=== PATIENT | female | born 1945 | race Caucasian/White ===

== ENCOUNTER → 2020-01-02 14:19 | Outpatient (BNVA) | payer MEDICARE, SELFPAY | PROVIDERS: PCP Internal Medicine; Referring Provider Internal Medicine; Visit Provider Internal Medicine Cardiovascular Disease | DX: R07.9 Chest pain, unspecified (principal); R06.02 Shortness of breath; I35.2 Nonrheumatic aortic (valve) stenosis with insufficiency; I47.1 Supraventricular tachycardia; Z79.82 Long term (current) use of aspirin; Z79.899 Other long term (current) drug therapy | CPT/HCPCS: 99212 ==

== ENCOUNTER → 2020-02-12 07:56 | Outpatient (REF) | payer MEDICARE, SELFPAY ==
--- NOTE | 2020-02-12 | NM_ITS ---
Lexiscan Myocardial perfusion study Indication: Chest pain, shortness of breath, assess for coronary disease and ischemia Technique: The patient was brought in for a Lexiscan perfusion study on 02/12/2020 and was injected 0.4 mg of Lexiscan intravenously. Within a minute of this injection 25 mCi of sestamibi was given intravenously. Images were obtained using the SPECT gamma camera interlaced with the gating device. Images were obtained in supine position. Resting perfusion study was performed on 02/13/2020. Patient was administered 25 mCi of sestamibi intravenously at rest. Images were then obtained in supine position. Total DLP 78mGy-cm. Images were processed with the software and compared side to side in short axis, horizontal long axis and vertical long axis views. Findings: Raw acquisition was reviewed. The stress perfusion study showed no significant perfusion abnormality. Both uncorrected as well as CT attenuation corrected images were reviewed. The gated study shows normal LV systolic function with calculated LVEF of 72%. LV cavity is normal in size. The gated study shows normal wall thickening and contraction of segments. Resting study shows no significant perfusion abnormality. Gating at rest reveals normal wall motion with ejection fraction at > 75%. The findings are consistent with no definite reversible or fixed perfusion abnormality. NM/NM mesha perf SPECT rest & str Impression: 1. Myocardial perfusion imaging study shows normal myocardial perfusion. No evidence of any ischemia or infarction. 2. Gated LVEF is > 70% during stress and rest. 3. Transient ischemic dilatation not present. EKG component of the test reported separately.
--- NOTE | 2020-02-12 08:00 | CA_ITS ---
Acquisition Time: 2020-02-12 08:14:29 Total Exercise Time: 00:02:00 Test Indications: Chest Pain Medications: SEE H Protocol: LEXISCAN Max HR: 125 BPM 84% of Pred: 148 BPM Max BP: 126/074 mmHG Max Work Load: 1.0 METS Pharmacological stress test with Lexiscan injection, while sitting and kicking her legs, without anginal symptoms, without arrythmia, with normotensive response to injection, with nondiagnostic EKG for ischemia. In recovery she reported shortness of breath that was treated with Aminophylline 75mg IVP to reverse Lexiscan, with improvement in symptom. Nuclear images pending. Test reviewed with Dr Hernández. Referred By: Carlos Hernández Overread By: MELISSA GARCIA
== END ==
LOC: HO.CARD 07:56
PROVIDERS: PCP Internal Medicine; Visit Provider Internal Medicine Cardiovascular Disease
DX: R07.9 Chest pain, unspecified (principal)
CPT/HCPCS: 78452; 93017; A9500; J0280; J2785

== ENCOUNTER 2020-03-11 09:10 | Outpatient (REF) | payer MEDICARE, SELFPAY ==
--- NOTE | 2020-03-11 | US_ITS ---
EXAMINATION: US ABDOMEN COMPLETE CLINICAL INFORMATION: Epigastric abdominal pain. COMPARISON: CT abdomen and pelvis 11/24/2006. TECHNIQUE: Real-time imaging of the abdominal viscera. FINDINGS: PANCREAS: Normal. ABDOMINAL AORTA: The proximal, mid, and distal segments are normal in caliber. INFERIOR VENA CAVA: Visualized portions are normal. LIVER: The liver is normal in size. The liver contour is normal. There is diffuse increased echogenicity. There is an anechoic cyst left hepatic lobe measuring 0.8 x 0.6 x 0.8 cm. There is no intrahepatic biliary duct dilatation seen. GALLBLADDER: Surgically absent. COMMON BILE DUCT: Normal in caliber measuring 0.6 cm in diameter. RIGHT KIDNEY: There is an anechoic cyst measuring 1.0 x 0.8 x 0.9 cm in the midpole. No hydronephrosis or renal calculi. The kidney measures 10.0 cm in maximum dimension. LEFT KIDNEY: Normal. No hydronephrosis. No renal calculi or focal parenchymal lesions. The kidney measures 11.2 cm in maximum dimension. SPLEEN: Normal. The spleen measures 8.1 cm in maximum dimension. FREE FLUID: None. US/US abdomen complete IMPRESSION: Fatty infiltration of liver with a small left hepatic lobe cyst. Midpole right kidney cyst. The rest of the abdominal ultrasound is unremarkable.
== END 2020-03-11 09:11 | disposition home or self-care (01) ==
LOC: HO.US 09:10
PROVIDERS: PCP Internal Medicine; Visit Provider Internal Medicine
DX: R10.13 Epigastric pain (principal)
CPT/HCPCS: 76700

== ENCOUNTER 2020-03-20 10:41 | Day surgery (SDC) | payer MEDICARE, SELFPAY ==
[2020-03-14 14:26] VITALS: BMI 28.3
--- NOTE | 2020-03-15 14:30 | HO.ANESPROP2 ---
Documented by User: Mary Coulter 03/15/20 14:37 HPI - Anesthesia Eval Consult details Narrative: 75yo F for Upper Endoscopy Cardiac cleared at low risk [facility] Past Medical History Medical History (Updated 03/15/20 @ 14:36 by Mary Coulter) Aortic valve disease Chest pain in adult COPD (chronic obstructive pulmonary disease) Elevated cholesterol Fracture of leg GERD (gastroesophageal reflux disease) Hx of irritable bowel syndrome SVT (supraventricular tachycardia) Family History Family History Father No problems noted. Mother CVD (cardiovascular disease) Surgical History Surgical History (Updated 03/14/20 @ 14:33 by Orin Munguia) H/O colonoscopy History of esophagogastroduodenoscopy (EGD) Hx laparoscopic cholecystectomy Hx of cataract extraction Social History Social History Smoking Status: Former smoker Smoked in Last 30 Days: No Smoking Quit Date: 25 years ago Second Hand Smoke Exposure: No Use of substances other than those prescribed or required for medical reasons: No Advance Directives: No Advance Directives Information Provided: No Meds Allergies Allergy/AdvReac Type Severity Reaction Status Date / Time Sulfa (Sulfonamide Allergy Intermediate RASH Verified 03/20/20 11:23 Antibiotics) [SULFA(SULFONAMIDE ANTIBIOTICS)] levofloxacin [From LEVAQUIN] Allergy Unknown UNKNOWN Verified 03/20/20 11:23 azithromycin [From ZITHROMAX] AdvReac Intermediate DIARRHEA Verified 03/20/20 11:23 nebivolol [From BYSTOLIC] AdvReac Intermediate LEG EDEMA Verified 03/20/20 11:23 sertraline [SERTRALINE] AdvReac Intermediate NAUSEA Verified 03/20/20 11:23 Home Medications Medication Instructions Recorded Confirmed Type albuterol sulfate 90 mcg/actuation 1 inh INHALATION Q4-6H PRN 01/02/20 03/14/20 History aerosol inhaler cetirizine 10 mg tablet 10 mg PO DAILY 01/02/20 03/14/20 History citalopram 20 mg tablet 20 mg PO DAILY 01/02/20 03/14/20 History diltiazem HCl 120 mg capsule,24 120 mg PO DAILY 01/02/20 03/14/20 History hr,extended release fluticasone propionate 110 2 puff PO BID 01/02/20 03/14/20 History mcg/actuation HFA aerosol inhaler omeprazole 20 mg capsule,delayed 20 mg PO DAILY 01/02/20 03/14/20 History release pravastatin 40 mg tablet 40 mg PO DAILY 01/02/20 03/14/20 History umeclidinium 62.5 mcg-vilanterol 1 ea PO DAILY 01/02/20 03/14/20 History 25 mcg/actuation powdr for inhalation Exam Exam Date and Time: March 15, 2020 1430 Height,Weight and Vital Signs: Height 5 ft 5 in Weight 77.111 kg Narrative Narrative: EKG 12/2019 NSR@82, Low volt QRS Inf infarct, age undetermined ECHO 09/2018 Nml LV sys function with impaired relax, elevated filling pressures Mild LAE Mild and mild AR Mild MR Nml RV sys pressure No pericard effusion Stress 02/12/20 NM mesha perf SPECT rest & str Impression: 1. Myocardial perfusion imaging study shows normal myocardial perfusion. No evidence of any ischemia or infarction. 2. Gated LVEF is > 70% during stress and rest. 3. Transient ischemic dilatation not present. Nondiagnostic EKG for ischemia. US abdomen complete 03/11/20 IMPRESSION: Fatty infiltration of liver with a small left hepatic lobe cyst. Midpole right kidney cyst. The rest of the abdominal ultrasound is unremarkable. Assessment and Plan Assessment Anesthesia Assessment: Chart Reviewed Documented by User: Kisha Paulson 03/20/20 11:37 [facility] Past Medical History Medical History (Updated 03/15/20 @ 14:36 by Mary Coulter) Aortic valve disease Chest pain in adult COPD (chronic obstructive pulmonary disease) Elevated cholesterol Fracture of leg GERD (gastroesophageal reflux disease) Hx of irritable bowel syndrome SVT (supraventricular tachycardia) Family History Family History Father No problems noted. Mother CVD (cardiovascular disease) Surgical History Surgical History (Updated 03/14/20 @ 14:33 by Orin Munguia) H/O colonoscopy History of esophagogastroduodenoscopy (EGD) Hx laparoscopic cholecystectomy Hx of cataract extraction Social History Social History Smoking Status: Former smoker Smoked in Last 30 Days: No Smoking Quit Date: 25 years ago Second Hand Smoke Exposure: No Use of substances other than those prescribed or required for medical reasons: No Advance Directives: No Advance Directives Information Provided: No Meds Allergies Allergy/AdvReac Type Severity Reaction Status Date / Time Sulfa (Sulfonamide Allergy Intermediate RASH Verified 03/20/20 11:23 Antibiotics) [SULFA(SULFONAMIDE ANTIBIOTICS)] levofloxacin [From LEVAQUIN] Allergy Unknown UNKNOWN Verified 03/20/20 11:23 azithromycin [From ZITHROMAX] AdvReac Intermediate DIARRHEA Verified 03/20/20 11:23 nebivolol [From BYSTOLIC] AdvReac Intermediate LEG EDEMA Verified 03/20/20 11:23 sertraline [SERTRALINE] AdvReac Intermediate NAUSEA Verified 03/20/20 11:23 Home Medications Medication Instructions Recorded Confirmed Type albuterol sulfate 90 mcg/actuation 1 inh INHALATION Q4-6H PRN 01/02/20 03/14/20 History aerosol inhaler cetirizine 10 mg tablet 10 mg PO DAILY 01/02/20 03/14/20 History citalopram 20 mg tablet 20 mg PO DAILY 01/02/20 03/14/20 History diltiazem HCl 120 mg capsule,24 120 mg PO DAILY 01/02/20 03/14/20 History hr,extended release fluticasone propionate 110 2 puff PO BID 01/02/20 03/14/20 History mcg/actuation HFA aerosol inhaler omeprazole 20 mg capsule,delayed 20 mg PO DAILY 01/02/20 03/14/20 History release pravastatin 40 mg tablet 40 mg PO DAILY 01/02/20 03/14/20 History umeclidinium 62.5 mcg-vilanterol 1 ea PO DAILY 01/02/20 03/14/20 History 25 mcg/actuation powdr for inhalation Exam Airway Mallampati Class: II TM Dist: >3cm Neck ROM: Full Partial: Upper and Lower Heart: <del>RRR</del> Lungs: CTA BL Assessment and Plan Assessment Anesthesia Assessment: Anesthesia Plan Discussed and Chart Reviewed Final Anesthetic Review NPO: Yes ASA Class: III Final Preanesthetic Review: Meds/Ramirogs Chart Reviewed and Consent Obtained/Reviewed Patient Risk: Intermediate Procedure Risk: Intermediate Anesthetic Plan Anesthetic Plan: MAC: Disposition: Standard PACU
[2020-03-20 11:25] VITALS: BP 133/70; PULSE 73; RESP 18; TEMP 525; TEMP 977; O2SAT 97; BMI 27.9
[2020-03-20] MEDS: Lactated Ringers 1,000 ML 100 ML IVCONT (11:33)
[2020-03-20 12:06] VITALS: BP 88/48; PULSE 67; RESP 16; TEMP 36.1; O2SAT 98
--- NOTE | 2020-03-20 12:13 | PM.OP ---
Brief Operative Note Date of Service: 03/20/20 Pre-op diagnosis: Abdominal pain Post-op diagnosis: other (Mild antral gastritis, Gastric polyps, Hiatal hernia) Procedure: EGD with biopsy Surgeon: Kirit Hdez Anesthesia: MAC Estimated blood loss (mL): 3.0 Pathology: other (A. Gastric antrum B. Gastric polyps) Condition: stable Disposition: PACU
[2020-03-20 12:21] VITALS: BP 115/60; PULSE 70; RESP 16; TEMP 36.1; O2SAT 97
--- NOTE | 2020-03-20 13:06 | HO.POSTANES ---
Post Anesthesia Evaluation Post Anesthesia Evaluation Vital Signs: Vital Signs Temp Pulse Resp BP Pulse Ox 03/20/20 12:21 97.0 F 70 16 115/60 97 03/20/20 12:06 97.0 F 67 16 88/48 L 98 03/20/20 11:25 977.0 F H 73 18 133/70 97 Anesthesia: Monitored Mental Status: Awake Pain Control: Satisfactory Nausea/Vomiting: None Hydration: Adequate Anesthesia-Related Issues: No Anes. Related Issues
--- NOTE | 2020-03-20 13:09 | OP_ITS ---
SURGEON: Kirit Hdez MD INDICATIONS: The patient presents for evaluation of abdominal pain. Full consent has been obtained from her for this, including risks of bleeding and perforation. PREOPERATIVE DIAGNOSIS: Abdominal pain. POSTOPERATIVE DIAGNOSIS: PROCEDURE PERFORMED: Esophagogastroduodenoscopy with biopsies. ESTIMATED BLOOD LOSS: COMPLICATIONS: ANESTHESIA: Monitored anesthesia care. ASSISTANTS: SPECIMENS: POSTOPERATIVE DIAGNOSES: Abdominal pain, mild gastritis, gastric polyps, hiatal hernia. DESCRIPTION OF PROCEDURE: The patient was placed in the left lateral decubitus position. The Olympus video gastroscope was passed in the posterior oropharynx and upper esophagus under direct vision. The scope was passed slowly into the distal esophagus. The gastroesophageal junction appeared normal at 35 cm. There was no sign of any esophagitis. The scope was entered into the stomach. There was a small hiatal hernia. The scope was advanced to pylorus and duodenum cannulated to the descending portion. The duodenum including the bulb appeared normal without mass or ulceration. The scope was withdrawn back into the stomach. The gastric antrum had some areas of edema and erythema in the pre-pyloric antrum, but there was no evidence of any erosions nor ulceration. There was good peristalsis. Biopsies were obtained from the gastric antrum. The scope was retroflexed visualizing the proximal stomach carefully, which appeared normal, without mass or ulceration, other than some hyperplastic appearing gastric polyps. A few of these were biopsied. The scope was straightened and withdrawn back into the esophagus. The esophageal mucosa appeared normal. The scope was withdrawn from the patient. She tolerated the procedure well and was returned to the recovery area in stable condition. IMPRESSION: 1. Mild gastritis. 2. Gastric polyps. 3. Hiatal hernia. PLAN: The results of the biopsies will be checked. She has been advised to continue omeprazole for symptomatic relief of reflux. Her recent abdominal ultrasound was nonrevealing. She reports that her abdominal discomfort is quite minimal at this point. I advised her to continue omeprazole and observe things. Even if Helicobacter pylori is present in the gastric biopsies, I would not necessarily treat that at this time. If things are stable, I think she can see me on a p.r.n. basis and should have a repeat colonoscopy in 2022 for further screening. I did advise her to call me as needed. MD DESIREE Muñoz/MAGDALENA / [phone] LATRICIA
== END 2020-03-20 13:05 | disposition home or self-care (01) ==
PROVIDERS: PCP Internal Medicine; Visit Provider Internal Medicine
PROC: 0DJ08ZZ Inspection of Upper Intestinal Tract, Via Natural or Artificial Opening Endoscopic (ICD-10-PCS; CPT 43235; principal; 2020-03-20 12:00)
DX: R10.13 Epigastric pain (principal); K29.50 Unspecified chronic gastritis without bleeding; K31.7 Polyp of stomach and duodenum; K44.9 Diaphragmatic hernia without obstruction or gangrene; K21.9 Gastro-esophageal reflux disease without esophagitis; J44.9 Chronic obstructive pulmonary disease, unspecified; Z90.49 Acquired absence of other specified parts of digestive tract; Z79.899 Other long term (current) drug therapy
CPT/HCPCS: 43239; 88305; 88342

== ENCOUNTER 2020-05-03 10:56 | Outpatient (REF) | payer MEDICARE, SELFPAY ==
--- NOTE | ~2020-05-03 | MM_ITS ---
EXAMINATION: MM SCREENING DIGITAL BREAST TOMOSYNTHESIS, BILATERAL CLINICAL INFORMATION: Screening. Asymptomatic. The lifetime risk of breast cancer based on the Tyrer-Cuzick Model is 3%. COMPARISON: Mammography: 04/28/2019, 04/25/2018, 04/19/2017 TECHNIQUE: Digital breast tomosynthesis is performed in both the craniocaudal and mediolateral oblique views along with computer-aided detection (CAD). Synthesized 2D images are generated from the tomosynthesis. Additional exaggerated right CC view is provided. FINDINGS: The breasts are almost entirely fatty (ACR BI-RADS breast composition Category a). There are no significant masses, abnormal calcifications, or other abnormalities. The axilla and skin contours are unremarkable. MM/MM tomosynthesis screening BI IMPRESSION: No mammographic evidence of malignancy. ASSESSMENT: BI-RADS 1: Negative RECOMMENDATION: Routine annual mammography screening. This patient's information was entered into a reminder system with a target due date for their next mammogram.
== END 2020-05-03 10:57 | disposition home or self-care (01) ==
LOC: HO.MAMMO 10:56
PROVIDERS: Visit Provider Internal Medicine
DX: Z12.31 Encounter for screening mammogram for malignant neoplasm of breast (principal)
CPT/HCPCS: 77063; 77067

== ENCOUNTER 2020-05-24 09:58 | Outpatient (REF) | payer MEDICARE, SELFPAY ==
[2020-05-24 11:17] LABS: Alanine Aminotransferase 34 U/L (0-31); Albumin Level 4.3 g/dL (3.5-5.0); Alkaline Phosphatase 68 U/L (39-117); Anion Gap 13 (12-20); Aspartate Amino Transferase 30 U/L (5-31); Bilirubin Total 0.5 mg/dL (0.0-1.0); Blood Urea Nitrogen 22 mg/dL (9-16); Calcium 9.1 mg/dL (8.4-10.2); Carbon Dioxide 27 mmol/L (22-29); Chloride 105 mmol/L (96-108); Estimated Glomerular Filt Rate 53; Glucose Random 100 mg/dL (60-115); Potassium 4.8 mmol/L (3.3-5.1); Sodium 140 mmol/L (135-145); Total Protein 7.2 g/dL (6.5-8.0)
[2020-05-24 11:24] LABS: Thyroid Stimulating Hormone 2.98 uIU/mL (0.32-4.0)
== END 2020-05-24 09:59 | disposition home or self-care (01) ==
LOC: HO.LAB 09:58
PROVIDERS: PCP Internal Medicine; Visit Provider Internal Medicine
DX: Z00.00 Encounter for general adult medical examination without abnormal findings (principal); E03.9 Hypothyroidism, unspecified; E78.00 Pure hypercholesterolemia, unspecified; I10 Essential (primary) hypertension; K44.9 Diaphragmatic hernia without obstruction or gangrene
CPT/HCPCS: 36415; 80053; 84443

== ENCOUNTER 2020-08-16 10:03 | Emergency (ER) | payer MEDICARE, SELFPAY ==
--- NOTE | ~2020-08-16 | CT_ITS ---
EXAMINATION: CT ABDOMEN AND PELVIS WITH CONTRAST CLINICAL INFORMATION: Diarrhea and weakness. COMPARISON: Ultrasound abdomen 03/11/2020 TECHNIQUE: Multidetector volumetric images were obtained from the superior aspect of the liver through the pubic symphysis following administration 85 mL of Omnipaque 350 intravenous contrast. Sagittal and coronal reformatted images were obtained on the technologist's workstation. Oral contrast: No This CT examination was performed using dose optimization techniques as appropriate, variously including the following: *Automated exposure control *Adjustment of mA and/or kV according to patient size (this includes techniques or standardized protocols for targeted exams where dose is matched to indication/reason for exam; i.e. extremities or head) *Use of iterative reconstruction technique DLP: 509 mGy-cm FINDINGS: LUNG BASES: The heart size is normal. There is mild bibasilar atelectasis or scarring. 3 minutes subpleural nodule right lower lobe axial image 02/28. LIVER, GALLBLADDER, AND BILIARY TREE: The liver is normal in size, shape, and attenuation. No focal hepatic lesion or biliary ductal dilatation is present. The gallbladder has been surgically removed. PANCREAS: Unremarkable. SPLEEN: Unremarkable. ADRENAL GLANDS: Unremarkable. KIDNEYS AND URETERS: The kidneys are normal in size, shape, and attenuation. No hydronephrosis, hydroureter, or calculi seen. No perinephric stranding. There are small partially exophytic right renal cysts. Bilateral extrarenal kidney pelvises are noted. BLADDER: Unremarkable. GASTROINTESTINAL TRACT: Scattered stool and gas seen throughout the colon. There is nonspecific minimal mural thickening involving most of the colon. No pericolic fat stranding seen. The appendix is normal caliber. The small bowel loops are normal caliber. The stomach is nondistended and appears unremarkable. No free air or free fluid seen. ABDOMINAL WALL: A small umbilical hernia containing fat is noted. LYMPH NODES: Normal. VASCULAR: Unremarkable. PELVIC VISCERA: Unremarkable. OSSEOUS STRUCTURES: There is a calcified L1-L2 disc present. No lytic or sclerotic process seen. Mild spondylosis seen in mid lumbar spine. CT/CT abdomen pelvis w con IMPRESSION: Nonspecific mild mural thickening involving the majority of the colon but without any fat stranding could be secondary colitis. No diverticulitis seen. There is no free air or free fluid. Small right renal cyst with bilateral extra renal kidney pelvises.
--- NOTE | 2020-08-16 10:13 | ED_ITS ---
HPI - Nausea/Vomiting/Diarrhea General Chief complaint: Dizziness Stated complaint: diarrhea vomiting Time Seen by Provider: 08/16/20 10:12 Source: patient Mode of arrival: ambulatory Limitations: no limitations History of Present Illness MD elicited complaint: nausea, vomiting, diarrhea and other (dizziness feels weak all over) Pertinent past history: other (gastritis) Onset (ago): day(s) (started this Wednesday) Description of vomiting: food contents Associated nausea: Yes Associated abdominal pain: No Severity: moderate Exacerbating factors: eating and standing Relieving factors: rest and other (was Rx zofran and dicyclomine by GI without relief) Associated symptoms: loss of appetite, malaise, nausea/vomiting, weakness and other (feels very dizzy particularly with standing) Treatment prior to arrival: immodium Related Data Home Medications Medication Instructions Recorded Confirmed albuterol sulfate 90 mcg/actuation 1 inh INHALATION Q4-6H PRN 01/02/20 03/14/20 aerosol inhaler cetirizine 10 mg tablet 10 mg PO DAILY 01/02/20 03/14/20 citalopram 20 mg tablet 20 mg PO DAILY 01/02/20 03/14/20 diltiazem HCl 120 mg capsule,24 120 mg PO DAILY 01/02/20 03/14/20 hr,extended release fluticasone propionate 110 2 puff PO BID 01/02/20 03/14/20 mcg/actuation HFA aerosol inhaler omeprazole 20 mg capsule,delayed 20 mg PO DAILY 01/02/20 03/14/20 release pravastatin 40 mg tablet 40 mg PO DAILY 01/02/20 03/14/20 umeclidinium 62.5 mcg-vilanterol 1 ea PO DAILY 01/02/20 03/14/20 25 mcg/actuation powdr for inhalation Previous Rx's Medication Instructions Recorded metoclopramide HCl [Reglan] 10 mg PO Q6H PRN #20 tab 08/16/20 metronidazole [Flagyl] 500 mg PO Q12H 7 Days #14 tab 08/16/20 Allergies Allergy/AdvReac Type Severity Reaction Status Date / Time Sulfa (Sulfonamide Allergy Intermediate RASH Verified 08/16/20 10:21 Antibiotics) [SULFA(SULFONAMIDE ANTIBIOTICS)] levofloxacin [From LEVAQUIN] Allergy Unknown UNKNOWN Verified 08/16/20 10:21 azithromycin [From ZITHROMAX] AdvReac Intermediate DIARRHEA Verified 08/16/20 10:21 nebivolol [From BYSTOLIC] AdvReac Intermediate LEG EDEMA Verified 08/16/20 10:21 sertraline [SERTRALINE] AdvReac Intermediate NAUSEA Verified 08/16/20 10:21 Review of Systems Review of Systems: Constitutional : No Weight loss, No Fever, No Chills ENT/Mouth : No sore throat, No Rhinorrhea Eyes: No Swelling, No Redness Cardiovascular : No Chest Pain, No SOB, NoEdema Respiratory : No Cough, No Sputum, No Wheezing Gastrointestinal : Positive Nausea, Positive Vomiting, positive Diarrhea, no abdominal Pain, No Hematochezia, No Melena Genitourinary : No Dysuria, No Urinary Frequency, No Hematuria, No Urgency Musculoskeletal : No joint pain, No Myalgias, No Joint Swelling Skin : No Skin Lesions, No rash Neuro : No Weakness, No Numbness, pos Dizziness, No Headache Psych : No Anxiety/Panic, No Depression Heme/Lymph: No Bruising, No Lymphadenopathy Endocrine : No Polyuria, No Polydipsia All other systems reviewed and are negative. Gastrointestinal: Gastrointestinal: Reports nausea PMFSH Past Medical History Attestation statement: The following information was validated with the patient. Medical History Aortic valve disease Chest pain in adult COPD (chronic obstructive pulmonary disease) Elevated cholesterol Fracture of leg GERD (gastroesophageal reflux disease) Hx of irritable bowel syndrome SVT (supraventricular tachycardia) Surgical History H/O colonoscopy History of esophagogastroduodenoscopy (EGD) Hx laparoscopic cholecystectomy Hx of cataract extraction Family History Family History Father No problems noted. Mother CVD (cardiovascular disease) Social History Social History Alcohol intake: current Alcohol intake frequency: 0-2 drinks per day Patient Tobacco Use Status: Never used Tobacco Second Hand Smoke Exposure: No Use of substances other than those prescribed or required for medical reasons: No Advance Directives: Yes Advance Directives Information Provided: Yes Advance Directives on File: No Physical Exam Vital Signs: Vital Signs: Last Vital Signs Temp 97.3 F 08/16/20 10:24 Pulse 81 08/16/20 10:24 Resp 17 08/16/20 10:24 BP 143/50 H 08/16/20 10:24 Pulse Ox 98 08/16/20 10:24 Body Mass Index 25.0 Appearance: Alert. Oriented X3. No acute distress. Eyes: Pupils equal, round and reactive to light. ENT: Pharynx dry MM Neck: Normal inspection. Neck supple. CVS: Normal heart rate and rhythm. Pulses normal. Respiratory: No respiratory distress. Breath sounds normal. Abdomen: Soft and non-tender. Skin: Skin warm and dry. Normal skin color. Normal skin turgor. Extremities: No lower extremity edema. No calf ttp Neuro: Oriented X 3. No motor deficit. No sensory deficit. Course Course Course Narrative: attempting PO challenge at this time, I did walk her she denies dizziness, no diarrhea while in the ED in the last 3.5 hours, will continue to observe, she is tolerating some fluids and crackers the patient has been able to keep food down, she is feeling much better, at this time she wants to go home after discussion regarding admission, after CT scan results will start on flagyl and add reglan - plans to follow up with GI MDM - Nausea/Vomiting/Diarrhea MDM Narrative Medical decision making narrative: 75 yo female with hx of lung disease, aortic stenosis, HLD here with n/v/d since Wednesday unknown cause no recent antibiotics no food exposures, tried zofran and dicyclomine without relief, she did not vomit today and did not have diarrhea but she feels all over weak and very lightheaded suspect dehydration at this time reglan, IVF, CT scan for colitis, denies GIB symptoms, dispo per results and findings, doubt posterior stroke given related to position and started after n/v/d Lab Data Result diagrams: 08/16/20 10:35 08/16/20 10:35 Labs: Lab Results 08/16/20 08/16/20 08/16/20 Range/Units 10:35 10:35 10:35 WBC 3.7 L (4.8-10.8) X10*3/uL RBC 4.04 L (4.20-5.50) X10*6/uL Hgb 12.5 (12.0-16.0) g/dl Hct 37.0 (37-47) % MCV 91.6 (80-98) fL MCH 30.9 (27.0-33.0) pg MCHC 33.8 (31.0-35.0) g/dl RDW 12.1 (11.0-16.0) % Plt Count 208 (160-400) X10*3/uL MPV 8.4 L (9.4-12.3) fL Immature Gran % (Auto) 0.3 (0.0-0.4) % Neut % (Auto) 72.3 (45-73) % Lymph % (Auto) 17.2 L (20-40) % [place] % (Auto) 8.6 (2-11) % Eos % (Auto) 1.1 (0-4) % Baso % (Auto) 0.5 (0-2) % Lymph # (Auto) 0.6 L (1.2-4.9) X10*3/uL [place] # (Auto) 0.3 (0.1-1.2) X10*3/uL Eos # (Auto) 0.0 (0.0-0.4) X10*3/uL Baso # (Auto) 0.0 (0.0-0.2) X10*3/uL Abs Immat Gran (auto) 0.01 (0.00-0.03) X10*3/uL Absolute Neuts (auto) 2.7 (2.0-8.3) X10*3/uL Absolute Nucleated RBC 0.000 (0.0-0.012) X10*3/uL Nucleated RBC % (auto) 0.0 (0.0-0.2) /100WBC Sodium Cancelled 138 Potassium Cancelled 3.5 D Chloride Cancelled 104 Carbon Dioxide Cancelled 19 L Anion Gap Cancelled 19 BUN Cancelled 19 H Creatinine Cancelled 1.01 Estim Creat Clear Calc Cancelled 44.6 Estimated GFR Cancelled 54 Random Glucose Cancelled 123 H Calcium Cancelled 9.3 Magnesium 1.9 (1.6-2.6) mg/dL Total Bilirubin 1.0 (0.0-1.0) mg/dL Direct Bilirubin 0.5 (0.0-0.5) mg/dL AST 37 H (5-31) U/L ALT 33 H (0-31) U/L Alkaline Phosphatase 65 (39-117) U/L Troponin I High Sens (<3.5-17.0) ng/L Total Protein 7.3 (6.5-8.0) g/dL Albumin 4.3 (3.5-5.0) g/dL Lipase 19 (8-78) U/L 08/16/ Range/Units 10:35 WBC (4.8-10.8) X10*3/uL RBC (4.20-5.50) X10*6/uL Hgb (12.0-16.0) g/dl Hct (37-47) % MCV (80-98) fL MCH (27.0-33.0) pg MCHC (31.0-35.0) g/dl RDW (11.0-16.0) % Plt Count (160-400) X10*3/uL MPV (9.4-12.3) fL Immature Gran % (Auto) (0.0-0.4) % Neut % (Auto) (45-73) % Lymph % (Auto) (20-40) % [place] % (Auto) (2-11) % Eos % (Auto) (0-4) % Baso % (Auto) (0-2) % Lymph # (Auto) (1.2-4.9) X10*3/uL [place] # (Auto) (0.1-1.2) X10*3/uL Eos # (Auto) (0.0-0.4) X10*3/uL Baso # (Auto) (0.0-0.2) X10*3/uL Abs Immat Gran (auto) (0.00-0.03) X10*3/uL Absolute Neuts (auto) (2.0-8.3) X10*3/uL Absolute Nucleated RBC (0.0-0.012) X10*3/uL Nucleated RBC % (auto) (0.0-0.2) /100WBC Sodium Potassium Chloride Carbon Dioxide Anion Gap BUN Creatinine Estim Creat Clear Calc Estimated GFR Random Glucose Calcium Magnesium (1.6-2.6) mg/dL Total Bilirubin (0.0-1.0) mg/dL Direct Bilirubin (0.0-0.5) mg/dL AST (5-31) U/L ALT (0-31) U/L Alkaline Phosphatase (39-117) U/L Troponin I High Sens 3.8 (<3.5-17.0) ng/L Total Protein (6.5-8.0) g/dL Albumin (3.5-5.0) g/dL Lipase (8-78) U/L ECG Data Attestation: I personally reviewed and interpreted this ECG as follows: ECG interpretation date: 08/16/20 ECG interpretation time: 11:11 Interpretation: Rate: 82 Rhythm: NSR [place]: left Normal P waves. Normal [place]. Normal QRS complex. ST T wave : normal no ESTUARDO qTC: normal prior studies:no acute ischemia The study has been interpreted contemporaneously by me. . Discharge Plan Discharge Clinical Impression: Colitis Nausea & vomiting Qualifiers: Vomiting type: unspecified Vomiting Intractability: non-intractable Qualified Code(s): R11.2 - Nausea with vomiting, unspecified Patient Disposition: Home, Self-Care Instructions: Acute Nausea and Vomiting (ED), Colitis (ED) Additional Instructions: return to ED for any worsening symptoms or concerns if you feel unwell at any time please return to the emergency department Prescriptions: New metronidazole [Flagyl] 500 mg tablet 500 mg PO Q12H 7 Days Qty: 14 RF: 0 metoclopramide HCl [Reglan] 10 mg tablet 10 mg PO Q6H PRN (Reason: nausea and vomiting) Qty: 20 RF: 0 No Action Flovent HFA 110 mcg/actuation HFA aerosol inhaler 2 puff PO BID RF: 0 cetirizine 10 mg tablet 10 mg PO DAILY RF: 0 pravastatin 40 mg tablet 40 mg PO DAILY RF: 0 diltiazem HCl 120 mg capsule,extended release 24 hr 120 mg PO DAILY RF: 0 omeprazole 20 mg capsule,delayed release(DR/EC) 20 mg PO DAILY RF: 0 citalopram 20 mg tablet 20 mg PO DAILY RF: 0 albuterol sulfate 90 mcg/actuation HFA aerosol inhaler 1 inh inhalation Q4-6H PRN (Reason: Shortness Of Breath) RF: 0 Anoro Ellipta 62.5-25 mcg/actuation blister with device 1 ea PO DAILY RF: 0 Referrals: Kirit Hdez [Physician] - 2 days (Wednesday)
--- NOTE | 2020-08-16 10:20 | ECG_ITS ---
Test Reason : DIZZINESS Blood Pressure : / mmHG Vent. Rate : 082 BPM Atrial Rate : 082 BPM P-R Int : 148 ms QRS Dur : 070 ms QT Int : 412 ms P-R-T Axes : 061 -10 033 degrees QTc Int : 481 ms Normal sinus rhythm Possible Left atrial enlargement Borderline ECG When compared with ECG of 03-OCT-2018 22:30, No significant change was found Referred By: Lyly Martin Electronically Signed By:Marcell Toth
[2020-08-16 10:21] VITALS: BP 143/50; PULSE 81; RESP 17; TEMP 36.3; O2SAT 98; BMI 25.0
[2020-08-16 10:24] VITALS: BP 143/50; PULSE 81; RESP 17; TEMP 36.3; O2SAT 98
[2020-08-16] MEDS: 0.9 % Sodium Chloride 1,000 ML 999 ML IVCONT (10:38)
[2020-08-16] MEDS: diphenhydrAMINE HCL 50 MG/ML VIAL 25 MG IVPUSH (10:42)
[2020-08-16] MEDS: Metoclopramide HCl 10 MG/2 ML VIAL 5 MG IVPUSH (10:42)
[2020-08-16 10:44] LABS: MANUAL DIFF FLAG NO
[2020-08-16 10:47] LABS: Basophils Percent Auto 0.5 % (0-2); Eosinophils Percent Auto 1.1 % (0-4); Hemoglobin 12.5 g/dl (12.0-16.0); Imm Gran Abs Auto 0.01 X10*3/uL (0.00-0.03); Imm Gran Pct Auto 0.3 % (0.0-0.4); Lymphocytes Absolute Auto 0.6 X10*3/uL (1.2-4.9); Lymphocytes Percent Auto 17.2 % (20-40); Mean Corpuscular HGB Conc 33.8 g/dl (31.0-35.0); Mean Corpuscular Hemoglobin 30.9 pg (27.0-33.0); Mean Corpuscular Volume 91.6 fL (80-98); Mean Platelet Volume 8.4 fL (9.4-12.3); Monocytes Absolute Auto 0.3 X10*3/uL (0.1-1.2); Monocytes Percent Auto 8.6 % (2-11); Neutrophils Absolute Auto 2.7 X10*3/uL (2.0-8.3); Neutrophils Percent Auto 72.3 % (45-73); Platelet Count 208 X10*3/uL (160-400); Red Blood Count 4.04 X10*6/uL (4.20-5.50); Red Cell Distribution Width 12.1 % (11.0-16.0); White Blood Count 3.7 X10*3/uL (4.8-10.8)
[2020-08-16 11:13] LABS: Troponin-I High Sensitivity 3.8 ng/L (<3.5-17.0)
[2020-08-16 11:16] LABS: Alanine Aminotransferase 33 U/L (0-31); Albumin Level 4.3 g/dL (3.5-5.0); Alkaline Phosphatase 65 U/L (39-117); Anion Gap 19 (12-20); Aspartate Amino Transferase 37 U/L (5-31); Bilirubin Direct 0.5 mg/dL (0.0-0.5); Blood Urea Nitrogen 19 mg/dL (9-16); Calcium 9.3 mg/dL (8.4-10.2); Carbon Dioxide 19 mmol/L (22-29); Chloride 104 mmol/L (96-108); Creatinine Clr Calc Pharmacy 44.6; Estimated Glomerular Filt Rate 54; Glucose Random 123 mg/dL (60-115); Lipase 19 U/L (8-78); Magnesium 1.9 mg/dL (1.6-2.6); Potassium 3.5 mmol/L (3.3-5.1); Sodium 138 mmol/L (135-145); Total Protein 7.3 g/dL (6.5-8.0)
[2020-08-16] MEDS: iohexoL 350 MG/ML 100 ML INFUS..BTL IV (12:30)
[2020-08-16] MEDS: Famotidine/PF 20 MG/2 ML VIAL IVPUSH (13:43)
[2020-08-16 14:28] LABS: Glucose Urine UA NEG (NEG); Leukocyte Esterase Urine NEG (NEG); Nitrite Urine NEG (NEG); Specific Gravity - Urine <= 1.005 (1.005-1.025); Urine Blood NEG (NEG); Urine Ketones 40 MG/DL (NEG); Urine Protein NEG (NEG-TRACE)
[2020-08-16 14:29] LABS: Appearance Urine CLEAR; Color Urine YELLOW
[2020-08-16 14:38] VITALS: BP 116/48; PULSE 86
[2020-08-16 14:40] VITALS: BP 118/62; PULSE 91
[2020-08-16 14:41] VITALS: BP 127/61; PULSE 103
[2020-08-16 14:48] VITALS: BP 127/61; PULSE 103
--- NOTE | 2020-08-16 14:48 | PC.NURSE ---
pt states dizziness is better. She has been ambulatory to bathroom with steady gait. Pt ready for discharge
== END 2020-08-16 15:05 | disposition home or self-care (01) ==
PROVIDERS: Emergency Provider Emergency Medicine; PCP Internal Medicine
DX: K52.9 Noninfective gastroenteritis and colitis, unspecified (principal); R11.2 Nausea with vomiting, unspecified; J44.9 Chronic obstructive pulmonary disease, unspecified; Z79.899 Other long term (current) drug therapy
CPT/HCPCS: 36415; 74177; 80048; 80076; 81003; 83690; 83735; 84484; 85025; 93005; 96361; 96374; 96375; 99284; 99285; J1200; J2765; Q9967

== ENCOUNTER 2020-08-18 11:16 | Inpatient (IN) | payer MEDICARE, SELFPAY ==
--- NOTE | ~2020-08-18 | US_ITS ---
EXAMINATION: US VENOUS ULTRASOUND WITH DOPPLER LOWER EXTREMITY, RIGHT CLINICAL INFORMATION: Right leg swelling and pain COMPARISON: None TECHNIQUE: Ultrasound of the deep veins is performed from the hip to the calf with compression sonography and color and pulse Doppler assessment. Spectral analysis with color-flow imaging is performed. FINDINGS: There is normal venous compression and respiratory variation and augmented flow. The visualized common femoral vein, superficial femoral vein, profunda femoral vein, popliteal vein, and the trifurcation region shows no evidence of deep venous thrombosis. There is no popliteal fossa cyst. US/US venous duplex LE RT IMPRESSION: No DVT demonstrated in the right lower extremity.
--- NOTE | ~2020-08-18 | CT_ITS ---
EXAMINATION: CT HEAD WITHOUT CONTRAST CLINICAL INFORMATION: Dizziness, headaches. COMPARISON: None TECHNIQUE: Contiguous axial imaging was performed from the skull base to vertex without intravenous administration of contrast. Coronal and sagittal reformatted images were obtained. This CT examination was performed using dose optimization techniques as appropriate, variously including the following: *Automated exposure control *Adjustment of mA and/or kV according to patient size (this includes techniques or standardized protocols for targeted exams where dose is matched to indication/reason for exam; i.e. extremities or head) *Use of iterative reconstruction technique DLP: 579 mGy-cm FINDINGS: There is no evidence of acute intracranial hemorrhage or territorial infarction. No abnormal mass effect or midline shift is seen. Coughlin to white matter differentiation is well preserved. No extra-axial fluid collections are identified. The ventricles are normal in size. There is no abnormal attenuation within the brain parenchyma. The osseous structures and soft tissues are normal. The mastoid air cells are clear. Complete opacification of the right frontal sinus is seen. There is near complete opacification of the right ethmoid sinuses. This is seen to a lesser extent in the left ethmoid sinuses. The sphenoid sinuses are clear. Mild mucosal thickening is seen in the maxillary sinuses bilaterally. A retention cyst versus inflammatory polyp is seen off of the anterior wall of the right maxillary sinus measuring 0.7 cm (image 92, series 6). A polyp is seen along the medial wall of the posterior aspect of the right nasal cavity measuring 1.1 cm (image 86, series 6). CT/CT head/brain wo con IMPRESSION: 1. No acute intracranial pathology. 2. Paranasal sinus and nasal mucosal inflammatory changes as detailed above.
[2020-08-18 11:30] VITALS: BP 120/71; PULSE 100; RESP 16; TEMP 36.6; O2SAT 96; BMI 25.0
--- NOTE | 2020-08-18 11:35 | ECG_ITS ---
Test Reason : GENERAL MEDICINE Blood Pressure : / mmHG Vent. Rate : 091 BPM Atrial Rate : 091 BPM P-R Int : 148 ms QRS Dur : 074 ms QT Int : 380 ms P-R-T Axes : 069 000 054 degrees QTc Int : 467 ms Normal sinus rhythm Normal ECG When compared with ECG of 16-AUG-2020 11:02, No significant changes seen Referred By: Lyly Martin Electronically Signed By:Marcell Toth
--- NOTE | 2020-08-18 11:37 | ED.NAVMDI ---
HPI - Nausea/Vomiting/Diarrhea General Chief complaint: Nausea/Vomiting/Diarrhea Stated complaint: NAUSEA DEHYDRATION Time Seen by Provider: 08/18/20 11:35 Source: patient Mode of arrival: ambulatory Limitations: no limitations History of Present Illness MD elicited complaint: nausea, vomiting and other (weakness, dizziness) Pertinent past history: other (colitis GERD) Onset (ago): week(s) (1 week yesterday was a better day but this AM felt much worse) Description of vomiting: watery Associated nausea: Yes Associated abdominal pain: Yes Location of pain: epigastric Pain consistency: intermittent Severity: mild Quality: dull Exacerbating factors: eating Relieving factors: none Context: recent antibiotic use Associated symptoms: loss of appetite, malaise, nausea/vomiting and weakness Treatment prior to arrival: other (tried reglan today and took her flagyl this morning) Related Data Home Medications Medication Instructions Recorded Confirmed albuterol sulfate 90 mcg/actuation 1 inh INHALATION Q4-6H PRN 01/02/20 08/18/20 aerosol inhaler cetirizine 10 mg tablet 10 mg PO DAILY 01/02/20 03/14/20 citalopram 20 mg tablet 20 mg PO DAILY 01/02/20 03/14/20 diltiazem HCl 120 mg capsule,24 120 mg PO DAILY 01/02/20 08/18/20 hr,extended release fluticasone propionate 110 2 puff PO BID 01/02/20 08/18/20 mcg/actuation HFA aerosol inhaler omeprazole 20 mg capsule,delayed 20 mg PO DAILY 01/02/20 08/18/20 release pravastatin 40 mg tablet 40 mg PO DAILY 01/02/20 08/18/20 umeclidinium 62.5 mcg-vilanterol 1 ea PO DAILY 01/02/20 03/14/20 25 mcg/actuation powdr for inhalation Previous Rx's Medication Instructions Recorded metoclopramide HCl [Reglan] 10 mg PO Q6H PRN #20 tab 08/16/20 metronidazole [Flagyl] 500 mg PO Q12H 7 Days #14 tab 08/16/20 Allergies Allergy/AdvReac Type Severity Reaction Status Date / Time Sulfa (Sulfonamide Allergy Intermediate RASH Verified 08/16/20 10:21 Antibiotics) [SULFA(SULFONAMIDE ANTIBIOTICS)] levofloxacin [From LEVAQUIN] Allergy Unknown UNKNOWN Verified 08/16/20 10:21 azithromycin [From ZITHROMAX] AdvReac Intermediate DIARRHEA Verified 08/16/20 10:21 nebivolol [From BYSTOLIC] AdvReac Intermediate LEG EDEMA Verified 08/16/20 10:21 sertraline [SERTRALINE] AdvReac Intermediate NAUSEA Verified 08/16/20 10:21 Review of Systems Review of Systems: Constitutional : No Weight loss, No Fever, No Chills ENT/Mouth : No sore throat, No Rhinorrhea Eyes: No Swelling, No Redness Cardiovascular : No Chest Pain, No SOB, NoEdema Respiratory : No Cough, No Sputum, No Wheezing Gastrointestinal : Positive Nausea, Positive Vomiting, no Diarrhea, positive abdominal Pain, No Hematochezia, No Melena Genitourinary : No Dysuria, No Urinary Frequency, No Hematuria, No Urgency Musculoskeletal : No joint pain, No Myalgias, No Joint Swelling Skin : No Skin Lesions, No rash Neuro : pos Weakness, No Numbness, pos Dizziness, No Headache Psych : No Anxiety/Panic, No Depression Heme/Lymph: No Bruising, No Lymphadenopathy Endocrine : No Polyuria, No Polydipsia All other systems reviewed and are negative. Gastrointestinal: Gastrointestinal: Reports nausea PMFSH Past Medical History Attestation statement: The following information was validated with the patient. Medical History Aortic valve disease Chest pain in adult COPD (chronic obstructive pulmonary disease) Elevated cholesterol Fracture of leg GERD (gastroesophageal reflux disease) Hx of irritable bowel syndrome SVT (supraventricular tachycardia) Surgical History H/O colonoscopy History of esophagogastroduodenoscopy (EGD) Hx laparoscopic cholecystectomy Hx of cataract extraction Family History Family History Father No problems noted. Mother CVD (cardiovascular disease) Social History Social History Alcohol intake: current Alcohol intake frequency: 0-2 drinks per day Patient Tobacco Use Status: Never used Tobacco Second Hand Smoke Exposure: No Advance Directives: Yes Advance Directives Information Provided: Yes Advance Directives on File: No Physical Exam Vital Signs: Vital Signs: Last Vital Signs Temp 98 F 08/18/20 11:30 Pulse 90 08/18/20 11:49 Resp 18 08/18/20 11:49 BP 120/71 08/18/20 11:30 Pulse Ox 95 08/18/20 11:49 Body Mass Index 25.0 Appearance: Alert. Oriented X3. No acute distress. Eyes: Pupils equal, round and reactive to light. ENT: Pharynx dry MM Neck: Normal inspection. Neck supple. CVS: Normal heart rate and rhythm. Pulses normal. Respiratory: No respiratory distress. Breath sounds normal. Abdomen: Soft and non-tender. Skin: Skin warm and dry. pale skin color. Normal skin turgor. Extremities: No lower extremity edema. No calf ttp Neuro: Oriented X 3. No motor deficit. No sensory deficit. no drift Course Course Course Narrative: IV potassium ordered CT scan no stroke but diffuse sinus disease which could be causing her symptoms of nausea/dizziness, will dose with zosyn x 1, no concerns for sepsis MDM - Nausea/Vomiting/Diarrhea MDM Narrative Medical decision making narrative: 75 yo female seen on Wednesday in the ED for mild colitis was dizzy and nauseated at that time, offered admission but she declined went home with reglan/flagl - able to keep flagyl down today but she is very nauseated and cannot eat, yesterday felt better, diarrhea has stopped x 3 days but she cannot tolerate PO has headaches feels dizzy when standing very weak - at this time repeat labs, IVF x 2L, CT scan of head for dizziness though suspect this is dehydration, admit for intractable n/v Lab Data Result diagrams: 08/18/20 12:02 08/18/20 12:02 Labs: Lab Results 08/18/20 08/18/20 08/18/20 Range/Units 12:02 12:02 12:02 WBC 3.1 L (4.8-10.8) X10*3/uL RBC 3.77 L (4.20-5.50) X10*6/uL Hgb 11.7 L (12.0-16.0) g/dl Hct 34.4 L (37-47) % MCV 91.2 (80-98) fL MCH 31.0 (27.0-33.0) pg MCHC 34.0 (31.0-35.0) g/dl RDW 12.2 (11.0-16.0) % Plt Count 203 (160-400) X10*3/uL MPV 8.3 L (9.4-12.3) fL Immature Gran % (Auto) 0.0 (0.0-0.4) % Neut % (Auto) 56.9 (45-73) % Lymph % (Auto) 21.7 (20-40) % [place] % (Auto) 16.9 H (2-11) % Eos % (Auto) 3.5 (0-4) % Baso % (Auto) 1.0 (0-2) % Lymph # (Auto) 0.7 L (1.2-4.9) X10*3/uL [place] # (Auto) 0.5 (0.1-1.2) X10*3/uL Eos # (Auto) 0.1 (0.0-0.4) X10*3/uL Baso # (Auto) 0.0 (0.0-0.2) X10*3/uL Abs Immat Gran (auto) 0.00 (0.00-0.03) X10*3/uL Absolute Neuts (auto) 1.8 L (2.0-8.3) X10*3/uL Absolute Nucleated RBC 0.000 (0.0-0.012) X10*3/uL Nucleated RBC % (auto) 0.0 (0.0-0.2) /100WBC Sodium 141 (135-145) mmol/L Potassium 3.2 L (3.3-5.1) mmol/L Chloride 108 (96-108) mmol/L Carbon Dioxide 24 (22-29) mmol/L Anion Gap 12 (12-20) BUN 11 (9-16) mg/dL Creatinine 0.95 (0.5-1.4) mg/dL Estim Creat Clear Calc 47.4 Estimated GFR 58 Random Glucose 131 H (60-115) mg/dL Lactic Acid 1.1 (0.5-2.0) mmol/L Calcium 9.4 (8.4-10.2) mg/dL Magnesium 1.8 (1.6-2.6) mg/dL Total Bilirubin 0.4 (0.0-1.0) mg/dL Direct Bilirubin 0.3 (0.0-0.5) mg/dL AST 33 H (5-31) U/L ALT 28 (0-31) U/L Alkaline Phosphatase 57 (39-117) U/L Total Protein 6.8 (6.5-8.0) g/dL Albumin 4.2 (3.5-5.0) g/dL Lipase 25 (8-78) U/L COVID-19 (STEFF) (Negative) COVID-19 Clin Com 08/18/20 Range/Units 12:02 WBC (4.8-10.8) X10*3/uL RBC (4.20-5.50) X10*6/uL Hgb (12.0-16.0) g/dl Hct (37-47) % MCV (80-98) fL MCH (27.0-33.0) pg MCHC (31.0-35.0) g/dl RDW (11.0-16.0) % Plt Count (160-400) X10*3/uL MPV (9.4-12.3) fL Immature Gran % (Auto) (0.0-0.4) % Neut % (Auto) (45-73) % Lymph % (Auto) (20-40) % [place] % (Auto) (2-11) % Eos % (Auto) (0-4) % Baso % (Auto) (0-2) % Lymph # (Auto) (1.2-4.9) X10*3/uL [place] # (Auto) (0.1-1.2) X10*3/uL Eos # (Auto) (0.0-0.4) X10*3/uL Baso # (Auto) (0.0-0.2) X10*3/uL Abs Immat Gran (auto) (0.00-0.03) X10*3/uL Absolute Neuts (auto) (2.0-8.3) X10*3/uL Absolute Nucleated RBC (0.0-0.012) X10*3/uL Nucleated RBC % (auto) (0.0-0.2) /100WBC Sodium (135-145) mmol/L Potassium (3.3-5.1) mmol/L Chloride (96-108) mmol/L Carbon Dioxide (22-29) mmol/L Anion Gap (12-20) BUN (9-16) mg/dL Creatinine (0.5-1.4) mg/dL Estim Creat Clear Calc Estimated GFR Random Glucose (60-115) mg/dL Lactic Acid (0.5-2.0) mmol/L Calcium (8.4-10.2) mg/dL Magnesium (1.6-2.6) mg/dL Total Bilirubin (0.0-1.0) mg/dL Direct Bilirubin (0.0-0.5) mg/dL AST (5-31) U/L ALT (0-31) U/L Alkaline Phosphatase (39-117) U/L Total Protein (6.5-8.0) g/dL Albumin (3.5-5.0) g/dL Lipase (8-78) U/L COVID-19 (STEFF) Negative (Negative) COVID-19 Clin Com See Note ECG Data Attestation: I personally reviewed and interpreted this ECG as follows: ECG interpretation date: 08/18/20 ECG interpretation time: 11:51 Interpretation: Rate: 91 Rhythm: NSR [place]: normal Normal P waves. Normal [place]. Normal QRS complex. ST T wave : normal no ESTUARDO artifact noted qTC: normal prior studies: no acute ischemia The study has been interpreted contemporaneously by me. . Discharge Plan Discharge Clinical Impression: Vomiting, Weakness, Acute hypokalemia, Sinusitis Patient Disposition: Admitted As Inpatient
[2020-08-18 11:49] VITALS: PULSE 90; RESP 18; O2SAT 95
[2020-08-18] MEDS: 0.9 % Sodium Chloride 1,000 ML 999 ML IVCONT ×2 (12:04→12:54)
[2020-08-18] MEDS: Famotidine/PF 20 MG/2 ML VIAL IVPUSH (12:08)
[2020-08-18] MEDS: ondansetron HCL 4 MG/2 ML VIAL IVPUSH ×2 (12:08→15:44)
[2020-08-18 12:10] LABS: Eosinophils Absolute Auto 0.1 X10*3/uL (0.0-0.4); Eosinophils Percent Auto 3.5 % (0-4); Hematocrit 34.4 % (37-47); Hemoglobin 11.7 g/dl (12.0-16.0); Lymphocytes Absolute Auto 0.7 X10*3/uL (1.2-4.9); Lymphocytes Percent Auto 21.7 % (20-40); MANUAL DIFF FLAG NO; Mean Corpuscular Volume 91.2 fL (80-98); Mean Platelet Volume 8.3 fL (9.4-12.3); Monocytes Absolute Auto 0.5 X10*3/uL (0.1-1.2); Monocytes Percent Auto 16.9 % (2-11); Neutrophils Absolute Auto 1.8 X10*3/uL (2.0-8.3); Neutrophils Percent Auto 56.9 % (45-73); Platelet Count 203 X10*3/uL (160-400); Red Blood Count 3.77 X10*6/uL (4.20-5.50); Red Cell Distribution Width 12.2 % (11.0-16.0); White Blood Count 3.1 X10*3/uL (4.8-10.8)
[2020-08-18 12:26] LABS: Lactic Acid 1.1 mmol/L (0.5-2.0)
[2020-08-18 12:35] LABS: Alanine Aminotransferase 28 U/L (0-31); Albumin Level 4.2 g/dL (3.5-5.0); Alkaline Phosphatase 57 U/L (39-117); Anion Gap 12 (12-20); Aspartate Amino Transferase 33 U/L (5-31); Bilirubin Direct 0.3 mg/dL (0.0-0.5); Bilirubin Total 0.4 mg/dL (0.0-1.0); Blood Urea Nitrogen 11 mg/dL (9-16); Calcium 9.4 mg/dL (8.4-10.2); Carbon Dioxide 24 mmol/L (22-29); Chloride 108 mmol/L (96-108); Creatinine Clr Calc Pharmacy 47.4; Estimated Glomerular Filt Rate 58; Glucose Random 131 mg/dL (60-115); Lipase 25 U/L (8-78); Magnesium 1.8 mg/dL (1.6-2.6); Potassium 3.2 mmol/L (3.3-5.1); Sodium 141 mmol/L (135-145); Total Protein 6.8 g/dL (6.5-8.0)
[2020-08-18 12:36] LABS: COVID-19 Test Negative (Negative)
[2020-08-18] MEDS: Potassium Chloride/H20 10 MEQ/100 ML PIGGYBACK 100 MEQ IV ×2 (12:54→15:44)
[2020-08-18] MEDS: Potassium Chloride Packet 20 MEQ PACKET PO (12:54)
[2020-08-18] MEDS: Piperacillin Sodium/Tazobactam 3.375 GM in 0.9 % Sodium Chloride 50 ML IV (13:32)
[2020-08-18] MEDS: cefTRIAXone sodium 1 GM in 0.9 % Sodium Chloride 50 ML IV (15:44)
[2020-08-18] MEDS: Dextrose 5 % and 0.9 % NaCl 1,000 ML 80 ML IVCONT (15:44)
[2020-08-18] MEDS: Enoxaparin Sodium 40 MG/0.4 ML SYRINGE SUBCUT (16:07)
--- NOTE | 2020-08-18 16:35 | HP_ITS ---
DATE OF SERVICE: 08/18/2020 CHIEF COMPLAINT: Generalized weakness, headache, dizziness, epigastric discomfort, and nausea. HISTORY OF PRESENTING ILLNESS: This is a very pleasant 75-year-old female patient, who was recently seen at [facility] on August 16 due to symptoms of nausea, vomiting, diarrhea. A CAT scan of the abdomen at that time showed nonspecific mild mural thickening of the entire large bowel. Therefore, the patient was diagnosed to have colitis. She was recommended admission, however she declined. Therefore, she was discharged home on Reglan and Flagyl. According to patient, she has been compliant with both medications. Her diarrhea has resolved. Her lower abdominal pain is better, but she has been having nausea, epigastric discomfort, and also feels dizzy and has headache localized to the top of the head. She has a history of recurrent sinus infection and the emergency room workup showed mild hypokalemia. The patient was treated with IV fluids, antiemetics, and IV potassium replacement, and now being admitted for continued monitoring treatment for persistent symptoms. At present, the patient feels that her nausea is worse and she has been having poor appetite. Has eaten only crackers, a few bites of chicken soup and yogurt. She is complaining of profound headache and dizziness associated with generalized weakness. Due to these symptoms, a CAT scan of the head was obtained that showed no acute abnormality. Her CBC showed low white cell count of 3.1, stable hematocrit. Chem profile showed a potassium of 3.2, blood sugar of 131, AST of 33, albumin 4.2. Two sets of blood cultures have been obtained. The patient was noted to have mild tachycardia with a pulse of 103 on arrival to the emergency room. PAST MEDICAL HISTORY: Significant for, 1. History of aortic valve disease. 2. History of COPD. 3. History of hyperlipidemia. 4. History of GERD. 5. History of irritable bowel disease. 6. History of SVT. PAST SURGICAL HISTORY: 1. Status post upper endoscopy and colonoscopy. 2. Status post cholecystectomy. 3. Status post cataract extraction. FAMILY HISTORY: Father is , had no acute medical. Mother is and had cardiovascular disease. SOCIAL HISTORY: The patient lives alone by herself. She denies history of tobacco use disorder. She drinks 1 or 2 glasses of alcohol daily. She ambulates without assistive device. 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 Headache is localized to the top of the head with no radiation. CVS: She denies any chest pain or palpitation. RESPIRATORY: She denies any cough or sputum production. SKIN: She denies any itching or rash. Rest of all other systems are reviewed and are negative. PHYSICAL EXAMINATION: GENERAL: The patient is resting in bed. Does not appear to be in acute distress. VITALS: She is afebrile with a pulse of 103, respiratory rate of 16, room air finger oximetry 96%. HEENT: Pupils equal, round, and reactive to light and accommodation. Extraocular muscles intact. Anicteric sclerae. NECK: Supple. No increased JVD. LUNGS: Clear to auscultation bilaterally. No wheeze, no rhonchi. No respiratory distress. ABDOMEN: Soft. Epigastric tenderness to palpation. No palpable masses, rebound, rigidity, or guarding. EXTREMITIES: No edema. NEURO: Nonfocal. MUSCULOSKELETAL: No tenderness over maxillary sinus. IMAGING STUDY: CT scan of the head showed no acute intracranial pathology, which showed paranasal sinus and nasal mucosal inflammatory changes in the maxillary sinuses bilaterally. The sphenoid sinuses are clear. There is near complete opacification of the right ethmoid sinus and to a lesser extent in the left ethmoid sinus. LABORATORY DATA: As mentioned above. ASSESSMENT AND PLAN: 75-year-old female patient with multiple medical issues including history of chronic obstructive pulmonary disease, hyperlipidemia, and gastroesophageal reflux disease, who presented to [facility] with symptoms of nausea, vomiting, diarrhea. Initially on August 16 and diagnosed to have mild colitis, subsequently treated with by-mouth Flagyl and Reglan. Today, presented to [facility] due to symptoms of weakness, dizziness, nausea, and headache. The patient has been diagnosed to have mild hypokalemia, sinusitis, and colitis. 1. Generalized weakness/nausea with underlying diagnosis of colitis. The patient will be admitted to medical floor, will be treated with IV fluids, antiemetics. We will place on IV Flagyl and ceftriaxone, and place on low residue diet. It seems the patient failed outpatient antibiotic treatment. 2. Headache and dizziness, most likely related to sinus infection with history of recurrent sinus infections. The patient is on IV ceftriaxone that will cover colitis and sinusitis, will be placed on nasal saline spray. Recommend by-mouth fluids and decongestants. 3. Hypokalemia likely due to GI loss, will be aggressively replaced. We will follow potassium level. 4. History of supraventricular tachycardia. We will continue the patient on Cardizem. 5. History of gastroesophageal reflux disease, status post upper endoscopy in February of 2020 that showed mild antral gastritis, gastric polyp, and hiatal hernia. We will continue omeprazole and as-needed Maalox. The patient wishes to be a full code. The patient's son Jerome is healthcare proxy. Decision for admission and treatment plan discussed with both the patient and son at bedside. MD GARRY Spencer/MAGDALENA / [phone]
[2020-08-18 17:40] VITALS: BP 157/65; PULSE 101; RESP 20; O2SAT 98
[2020-08-18] MEDS: metroNIDAZOLE/NS 500 MG/100 ML PIGGYBACK 100 MG IV (17:50)
[2020-08-18 21:02] VITALS: RESP 16
[2020-08-19] VITALS (11 sets, daily range): BP systolic 140–190; BP diastolic 70–107; PULSE 75–95; RESP 15–18; TEMP 36.3–37.2; O2SAT 94–97; BMI 27.7
--- NOTE | 2020-08-19 00:51 | PC.NURSE ---
nurse to nurse report given to Karely RICHARD
[2020-08-19] MEDS: Omeprazole 20 MG CAPSULE.DR PO (05:28)
[2020-08-19] MEDS: Dextrose 5 % and 0.9 % NaCl 1,000 ML 80 ML IVCONT (05:28)
[2020-08-19 07:37] LABS: Anion Gap 11 (12-20); Blood Urea Nitrogen 5 mg/dL (9-16); Calcium 8.9 mg/dL (8.4-10.2); Carbon Dioxide 21 mmol/L (22-29); Chloride 113 mmol/L (96-108); Creatinine Clr Calc Pharmacy 55.9; Estimated Glomerular Filt Rate > 60; Glucose Random 112 mg/dL (60-115); Potassium 3.4 mmol/L (3.3-5.1); Sodium 142 mmol/L (135-145)
[2020-08-19] MEDS: Loratadine 10 MG TABLET PO (08:51)
[2020-08-19] MEDS: Escitalopram Oxalate 10 MG TABLET PO (08:51)
[2020-08-19] MEDS: dilTIAZem HCL CD 120 MG CAP.ER.DEG PO (08:52)
[2020-08-19] MEDS: Pravastatin Sodium 40 MG TABLET PO (08:52)
[2020-08-19] MEDS: Famotidine/PF 20 MG/2 ML VIAL IVPUSH (11:42)
--- NOTE | 2020-08-19 12:04 | MHC.CM.PN ---
CM MET WITH P[T WHO REPORTS SHE LIVES ALONE AND IS INDEPENDENT WITH ALL CARE AND MOBILITY. PT DENIES USING ANY DME OR SERVICES. PT REPORTS SHE HAS A HCP THAT NAMES HER SON, BARTOLO HER AGENT. PT CONFIRMS HER PCP IS BERTA RYDER. PT EXPRESSES CONCERN ABOUT BEING ON OBSERVATION STATUS, HOWEVER SHE IS IN PATIENT AT THIS TIME. IMM DELIVERED. CURRENT DC PLAN IS HOME WITH NO SERVICES. PT WILL ARRANGE TRANSPORT
[2020-08-19] MEDS: 0.9 % Sodium Chloride Flush 3 ML SYRINGE IVFLUSH ×3 (16:56→20:49)
[2020-08-19] MEDS: Enoxaparin Sodium 40 MG/0.4 ML SYRINGE SUBCUT (16:56)
[2020-08-19] MEDS: cefTRIAXone sodium 1 GM in 0.9 % Sodium Chloride 50 ML IV (16:59)
--- NOTE | 2020-08-19 17:24 | P.PNIM_ITS ---
Subjective Subjective Date of Service: 08/19/20 Interval History: complaining of nausea decreased by mouth intake and epigastric discomfort, also complaining of shakiness leg swelling, no fevers no chills no vomiting noted no diarrhea, no bowel movement in last 48hrs General no headache, no dizziness no fever chills. CVS no chest pain, no palpitation. Respiratory no cough, no sob. Gastrointestinal nausea, epigastric discomfort and constipation Physical Exam Vital Signs: Vital Signs: Last Vital Signs Temp 98.1 F 08/19/20 16:00 Pulse 75 08/19/20 16:00 Resp 18 08/19/20 16:00 BP 140/70 H 08/19/20 16:00 Pulse Ox 94 08/19/20 16:00 Body Mass Index 27.7 General patient resting comfortably in no acute distress. Neck supple no JVD. CVS regular rate rhythm, Respiratory lungs clear to auscultation, no respiratory distress, no wheeze, no rhonchi. Gastrointestinal abdomen soft, mild epigastric discomfort with palpation, bowel sounds audible, no guarding , no rigidity. Extremities no pitting edema. no redness, no warmth Neuro nonfocal ,moving all 4 extremity, speech clear. Skin no rash Objective Data Current Medications Generic Name Dose Route Start Last Admin Trade Name Freq PRN Reason Stop Dose Admin Acetaminophen 650 mg 08/18/20 15:00 Acetaminophen 325 Mg Tablet PO Q6H PRN Pain, Mild (Pain Scale 1-3) Al Hydroxide/Mg Hydroxide 30 ml 08/19/20 11:16 Magnesium Hydrox/Alum Hydrox 30 Ml Oral.Susp PO Q6H PRN acidity Albuterol Sulfate 2 puff 08/18/20 15:00 Albuterol Sulfate 90 Mcg 8 Gm Inhaler INHALE QID PRN Shortness Of Breath Albuterol Sulfate 2 puff 08/19/20 11:16 Albuterol Sulfate 90 Mcg 8 Gm Inhaler INHALE RQ4H PRN Shortness of Breath Albuterol/Ipratropium 3 ml 08/19/20 01:48 Albuterol/Iprat 2.5/0.5mg 3 Ml Ampul.Neb INHALE RQ4H PRN Shortness of Breath/Wheezing Diltiazem HCl 120 mg 08/19/20 09:00 08/19/20 08:52 Diltiazem Hcl Cd 120 Mg Cap.Er.Deg PO 120 mg DAILY BARRETT Administration Protocol Enoxaparin Sodium 40 mg 08/18/20 16:00 08/19/20 16:56 Enoxaparin Sodium 40 Mg/0.4 Ml Syringe SUBCUT 40 mg Q24H BARRETT Administration Escitalopram Oxalate 10 mg 08/19/20 09:00 08/19/20 08:51 Escitalopram Oxalate 10 Mg Tablet PO 10 mg DAILY BARRETT Administration Hydralazine HCl 5 mg 08/19/20 01:48 Hydralazine Hcl 20 Mg/Ml Vial IVPUSH Q6H PRN BP>180/90 Protocol Ceftriaxone Sodium 1 gm/ 50 mls @ 100 mls/hr 08/19/20 16:00 08/19/20 16:59 Sodium Chloride IV 100 mls/hr Q24H BARRETT Administration Loratadine 10 mg 08/19/20 09:00 08/19/20 08:51 Loratadine 10 Mg Tablet PO 10 mg DAILY BARRETT Administration Omeprazole 20 mg 08/19/20 06:30 08/19/20 05:28 Omeprazole 20 Mg Capsule. PO 20 mg DAILY@0630 BARRETT Administration Ondansetron HCl 4 mg 08/18/20 15:02 08/18/20 15:44 Ondansetron Hcl 4 Mg/2 Ml Vial IVPUSH 4 mg Q6H PRN Administration Nausea Pharmacy Consult 1 each 08/18/20 11:35 Consult Rx Perform Med Rec MISCELLANE ONCE PRN Consult order Pravastatin Sodium 40 mg 08/19/20 09:00 08/19/20 08:52 Pravastatin Sodium 40 Mg Tablet PO 40 mg DAILY BARRETT Administration Sodium Chloride 3 ml 08/18/20 16:00 08/19/20 16:56 0.9 % Sodium Chloride Flush 3 Ml Syringe IVFLUSH 3 ml QSHIFT [facility] Administration Labs CBC & Chem 7: 08/18/20 12:02 08/19/20 06:14 Labs: Laboratory Results - last 24 hr 08/19/20 06:14 Sodium 142 Potassium 3.4 Chloride 113 H Carbon Dioxide 21 L Anion Gap 11 L BUN 5 L D Creatinine 0.91 Estim Creat Clear Calc 55.9 Estimated GFR > 60 Random Glucose 112 Calcium 8.9 Microbiology Microbiology Results: Microbiology 08/18/20 12:02 Blood Culture - Preliminary Blood - Venous No growth after 24 hours. 08/18/20 12:02 Blood Culture - Preliminary Blood - Venous No growth after 24 hours. Quality Stroke Does the patient have a stroke diagnosis?: No VTE Prior VTE?: No VTE Risk Level:: Medical - moderate - high VTE Device Contraindication: N/A - Device Ordered VTE Drug Contraindication: N/A - Med Ordered Assessment and Plan (1) Acute hypokalemia: Status: Acute (2) Colitis: Status: Acute (3) Gastritis: Status: Acute (4) Leg pain, right: Status: Acute Assessment and Plan: 75-year-old female patient with multiple medical issues including history of chr onic obstructive pulmonary disease, hyperlipidemia, and gastroesophageal reflux disease, who presented to [facility] with symptoms of nausea, vomiting, diarrhea. Initially on August 16 diagnosed to have mild colitis, treated with by- mouth Flagyl and Reglan. Today, presented to [facility] due to symptoms of weakness, dizziness, nausea, and headache. The patient has been diagnosed to have mild hypokalemia, sinusitis, and colitis. 1. Generalized weakness/nausea with underlying diagnosis of colitis/ gastritis. complaining of persistent nausea and epigastric tenderness, it seems s ymptoms are ongoing for long time, status post upper endoscopy by Dr. Hdez in February for similar symptoms that showed mild antral gastritis, gastric polyp and hiatal hernia, pathology revealed mild chronic inactive inflammation no Helicobacter organisms, likely recurrent symptoms of gastritis will increase dose of Prilosec to twice daily, recommend to take SSRI at night, continue suppor tive care with antiemetics, frequent small meals, recommend to keep head of the bed elevated after each meal will continue IV ceftriaxone for mild colitis, will discontinue Flagyl due to intolerance 2. Headache and dizziness, most likely related to sinus infection with history of recurrent sinus infections, on IV ceftriaxone that will cover colitis and sinusitis, will be placed on nasal saline spray. 3. Hypokalemia likely due to GI loss, normalized with repletion 4. History of supraventricular tachycardia. will continue on Cardizem. 5. Right leg discomfort , noted to have mild puffiness with no pitting edema obtained duplex ultrasound right lower extremity that showed no DVT has normal examination with no redness swelling no further intervention recommended, likely puffiness due to lack of activity in last few days recommend ambulation 6. disposition will discharge patient home at a.m. recommend ambulation. 7. DVT prophylaxis with Lovenox > 35 minutes spent providing direct care and discussing results of imaging studies
--- NOTE | 2020-08-19 18:22 | PC.NURSE ---
Patient c/o R leg swelling/warmth, hospitalist called to bedside, US venous duplex ordered. Patient encouraged to amb, up ab fifi. No further issues.
[2020-08-20 03:22] VITALS: BP 145/65; PULSE 79; RESP 20; TEMP 37.1; O2SAT 95
[2020-08-20] MEDS: Omeprazole 20 MG CAPSULE.DR PO (05:51)
[2020-08-20 07:28] VITALS: BP 170/74; PULSE 70; RESP 18; TEMP 36.4; O2SAT 98
[2020-08-20] MEDS: Loratadine 10 MG TABLET PO (08:14)
[2020-08-20] MEDS: Escitalopram Oxalate 10 MG TABLET PO (08:14)
[2020-08-20] MEDS: Pravastatin Sodium 40 MG TABLET PO (08:14)
[2020-08-20 08:15] VITALS: BP 128/66; PULSE 72
[2020-08-20] MEDS: dilTIAZem HCL CD 120 MG CAP.ER.DEG PO (08:15)
--- NOTE | 2020-08-20 11:00 | MHC.CM.PN ---
Female 75 DX Colitis Hypo K+. She is discharged to home today. Noservices ordered or needed. Family is providing transportation.
--- NOTE | 2020-08-20 17:46 | P.DS_ITS ---
DS: Providers Provider Date of Service: 08/20/20 Date of admission: 08/18/20 15:00 Primary care physician: Rebeca Clarke MD DS: Diagnosis Discharge Diagnosis (1) Acute hypokalemia: Status: Acute (2) Colitis: Status: Acute (3) Gastritis: Status: Acute (4) Leg pain, right: Status: Acute DS: Medications Discharge Medications Home Medications: Home Medications Medication Instructions Recorded Confirmed cetirizine 10 mg tablet 10 mg PO DAILY 01/02/20 08/18/20 diltiazem HCl 120 mg capsule,24 120 mg PO DAILY 01/02/20 08/18/20 hr,extended release pravastatin 40 mg tablet 40 mg PO DAILY 01/02/20 08/18/20 albuterol sulfate 2 puff INHALATION QID PRN 08/18/20 08/18/20 citalopram 1 tab PO DAILY 08/18/20 08/18/20 Previous Rx's Medication Instructions Recorded cefuroxime axetil 500 mg PO Q12H 3 Days #6 tab 08/20/20 omeprazole 20 mg PO BID #0 cap 08/20/20 DS: Summary Hospital Course Hospital Course: History of presenting illness CHIEF COMPLAINT: Generalized weakness, headache, dizziness, epigastric discomfort, and nausea. HISTORY OF PRESENTING ILLNESS: This is a very pleasant 75-year-old female patient, who was recently seen at [facility] on August 16 due to symptoms of nausea, vomiting, diarrhea. A CAT scan of the abdomen at that time showed nonspecific mild mural thickening of the entire large bowel. Therefore, the patient was diagnosed to have colitis. She was recommended admission, however she declined. Therefore, she was discharged home on Reglan and Flagyl. According to patient, she has been compliant with both medications. Her diarrhea has resolved. Her lower abdominal pain is better, but she has been having nausea, epigastric discomfort, and also feels dizzy and has headache localized to the top of the head. She has a history of recurrent sinus infection and the emergency room workup showed mild hypokalemia. The patient was treated with IV fluids, antiemetics, and IV potassium replacement, and now being admitted for continued monitoring treatment for persistent symptoms. At present, the patient feels that her nausea is worse and she has been having poor appetite. Has eaten only crackers, a few bites of chicken soup and yogurt. She is complaining of profound headache and dizziness associated with generalized weakness. Due to these symptoms, a CAT scan of the head was obtained that showed no acute abnormality. Her CBC showed low white cell count of 3.1, stable hematocrit. Chem profile showed a potassium of 3.2, blood sugar of 131, AST of 33, albumin 4.2. Two sets of blood cultures have been obtained. The patient was noted to have mild tachycardia with a pulse of 103 on arrival to the emergency room. hospital course 75-year-old female patient with multiple medical issues including history of chronic obstructive pulmonary disease, hyperlipidemia, and gastroesophageal reflux disease, who presented to [facility] with symptoms of nausea, vomiting, diarrhea. Initially on August 16 diagnosed to have mild colitis, treated with by-mouth Flagyl and Reglan, but since symptoms persisted presented to [facility] due to symptoms of weakness, dizziness, nausea, and headache and diagnosed to have mild hypokalemia, sinusitis, and colitis. 1. Generalized weakness with colitis/ gastritis. patient treated with antiemetics, IV fluids and IV antibiotics, all her symptoms resolved, recommend to take SSRIs and statins at night, dose of Prilosec increased to twice a daily is being discharged home to finish a total 7 day course of Ceftin, Flagyl discontinued due to intolerance, recommend to have outpatient follow-up with Dr. Hdez history of ongoing epigastric pain status post upper endoscopy by Dr. Hdez in February for similar symptoms that showed mild antral gastritis, gastric polyp and hiatal hernia, pathology revealed mild chronic inactive inflammation, no Helicobacter organisms. 2. Headache and dizziness, most likely related to sinus infection with history of recurrent sinus infections, headache resolved recommend to finish course of Ceftin and use saline spray. 3. Hypokalemia likely due to GI loss, normalized with repletion. 4. History of supraventricular tachycardia. Recommend to continue Cardizem. 5. Right leg discomfort , was transient and resolved, duplex ultrasound right lower extremity showed no DVT has normal examination with no redness swelling no further intervention recommended, likely puffiness due to lack of activity in last few days. Time Spent with Patient Time attestation: Total time spent providing and/or coordinating discharge services: Discharge coordination time: Greater than 30 minutes Quality: Stroke Does the patient have a stroke diagnosis?: No Physical Exam Vital Signs: Vital Signs: Last Vital Signs Temp 97.5 F 08/20/20 07:28 Pulse 72 08/20/20 08:15 Resp 18 08/20/20 07:28 BP 128/66 08/20/20 08:15 Pulse Ox 98 08/20/20 07:28 Body Mass Index 27.7 General patient resting comfortably in no acute distress. Neck supple no JVD. CVS regular rate rhythm, Respiratory lungs clear to auscultation, no respiratory distress, no wheeze, no rhonchi. Gastrointestinal abdomen soft, mild epigastric discomfort with palpation, bowel sounds audible, no guarding , no rigidity. Extremities no pitting edema. no redness, no warmth Neuro nonfocal ,moving all 4 extremity, speech clear. Skin no rash DS: Data Data Completed and Pending Labs on day of discharge: Preliminary micro results at discharge 08/18/20 12:02 Blood Culture - Preliminary Blood - Venous No growth after 48 hours. 08/18/20 12:02 Blood Culture - Preliminary Blood - Venous No growth after 48 hours. Discharge Plan Discharge Patient Disposition: Home, Self-Care Discharge Diagnosis: acute colitis hypokalemia gastritis right leg pain Referrals: Rebeca Clarke MD [Primary Care Provider] - 1 Week Discharge Medications: New cefuroxime axetil 500 mg tablet 500 mg PO Q12H 3 Days Qty: 6 RF: 0 Continued citalopram 20 mg tablet 1 tab PO DAILY RF: 0 albuterol sulfate 90 mcg/actuation HFA aerosol inhaler 2 puff inhalation QID PRN (Reason: Shortness Of Breath) RF: 0 cetirizine 10 mg tablet 10 mg PO DAILY RF: 0 pravastatin 40 mg tablet 40 mg PO DAILY RF: 0 diltiazem HCl 120 mg capsule,extended release 24 hr 120 mg PO DAILY RF: 0 Changed omeprazole 20 mg capsule,delayed release(DR/EC) 20 mg PO BID Qty: 0 RF: 0 Discontinued metronidazole [Flagyl] 500 mg tablet 500 mg PO Q12H 7 Days Qty: 14 RF: 0 Discharge Orders: Discharge Order (Routine); Ordered 08/20/20 Ordered By: Rocio Neff Diet: low fat, low cholesterol Activity on Discharge: As tolerated Stand Alone Forms: Patient Portal Discharge page Care Plan Goals: epigastric discomfort and nausea, take Prilosec twice daily, take Paxil and pravastatin at night, take small frequent meals, take by mouth Ceftin for 3 more days only for sinusitis and colitis, use Claritin only in the season with allergies, otherwise use as needed only Health Concerns: gastritis/colitis /nausea / sinusitis Plan of Treatment: follow-up with primary care physician and Gastroenterology Assessment: as above Discharge Date/Time: 08/20/20 12:10
== END 2020-08-20 12:10 | disposition home or self-care (01) | DRG 392 ==
LOC: HO.ED 12:03 → HO.EDOVER 15:29 → HO.IMC 08-19 00:38
PROVIDERS: Admitting Provider Hospitalist; Emergency Provider Emergency Medicine; PCP Internal Medicine; Visit Provider Hospitalist
DX: K29.70 Gastritis, unspecified, without bleeding (principal); I47.1 Supraventricular tachycardia; E86.0 Dehydration; K52.9 Noninfective gastroenteritis and colitis, unspecified; J32.9 Chronic sinusitis, unspecified; M79.604 Pain in right leg; K21.9 Gastro-esophageal reflux disease without esophagitis; E87.6 Hypokalemia; Z20.822 Contact with and (suspected) exposure to COVID-19; Z88.2 Allergy status to sulfonamides; Z79.899 Other long term (current) drug therapy
CPT/HCPCS: 36415; 70450; 80048; 80076; 83605; 83690; 83735; 85025; 87040; 87635; 93005; 93971; 99219; 99284; J0696; J1650; J2405; J2543

== ENCOUNTER 2020-09-23 09:41 | Outpatient (REF) | payer MEDICARE, SELFPAY ==
[2020-09-23 10:15] LABS: MANUAL DIFF FLAG NO
[2020-09-23 10:24] LABS: Basophils Absolute Auto 0.1 X10*3/uL (0.0-0.2); Basophils Percent Auto 1.2 % (0-2); Eosinophils Absolute Auto 0.2 X10*3/uL (0.0-0.4); Eosinophils Percent Auto 5.6 % (0-4); Hematocrit 37.5 % (37-47); Hemoglobin 12.3 g/dl (12.0-16.0); Imm Gran Abs Auto 0.01 X10*3/uL (0.00-0.03); Imm Gran Pct Auto 0.2 % (0.0-0.4); Lymphocytes Percent Auto 23.7 % (20-40); Mean Corpuscular HGB Conc 32.8 g/dl (31.0-35.0); Mean Corpuscular Hemoglobin 30.4 pg (27.0-33.0); Mean Corpuscular Volume 92.6 fL (80-98); Mean Platelet Volume 8.9 fL (9.4-12.3); Monocytes Absolute Auto 0.7 X10*3/uL (0.1-1.2); Monocytes Percent Auto 15.6 % (2-11); Neutrophils Absolute Auto 2.3 X10*3/uL (2.0-8.3); Neutrophils Percent Auto 53.7 % (45-73); Platelet Count 204 X10*3/uL (160-400); Red Blood Count 4.05 X10*6/uL (4.20-5.50); Red Cell Distribution Width 11.9 % (11.0-16.0); White Blood Count 4.3 X10*3/uL (4.8-10.8)
[2020-09-23 11:07] LABS: Alanine Aminotransferase 16 U/L (0-31); Albumin Level 4.3 g/dL (3.5-5.0); Alkaline Phosphatase 63 U/L (39-117); Anion Gap 14 (12-20); Aspartate Amino Transferase 21 U/L (5-31); Blood Urea Nitrogen 13 mg/dL (9-16); Calcium 9.6 mg/dL (8.4-10.2); Carbon Dioxide 25 mmol/L (22-29); Chloride 109 mmol/L (96-108); Cholesterol 169 mg/dL; Estimated Glomerular Filt Rate 51; Glucose Random 95 mg/dL (60-115); HDL Cholesterol 51 mg/dL; LDL Cholesterol Calculated 97 mg/dl; Potassium 4.6 mmol/L (3.3-5.1); Sodium 143 mmol/L (135-145); Total Protein 7.1 g/dL (6.5-8.0); Triglycerides 109 mg/dL
== END 2020-09-23 09:42 | disposition home or self-care (01) ==
LOC: HO.LAB 09:41
PROVIDERS: PCP Internal Medicine; Visit Provider Internal Medicine
DX: E03.9 Hypothyroidism, unspecified (principal); I10 Essential (primary) hypertension; E78.00 Pure hypercholesterolemia, unspecified; K29.60 Other gastritis without bleeding
CPT/HCPCS: 36415; 80053; 80061; 85025

== ENCOUNTER → 2020-12-09 13:23 | Day surgery (SDC) | payer MEDICARE, SELFPAY ==
[2020-12-09 14:02] VITALS: BP 136/63; PULSE 84; RESP 16; TEMP 37.2; O2SAT 98; BMI 25.6
== END ==
PROVIDERS: PCP Internal Medicine; Visit Provider Ophthalmology
PROC: (CPT 67840; principal; 2020-12-09 14:30)
DX: H02.822 Cysts of right lower eyelid (principal); Z96.1 Presence of intraocular lens; I10 Essential (primary) hypertension; J43.8 Other emphysema; Z87.891 Personal history of nicotine dependence; Z79.51 Long term (current) use of inhaled steroids; Z79.899 Other long term (current) drug therapy; Z88.2 Allergy status to sulfonamides; Z88.1 Allergy status to other antibiotic agents; Z88.8 Allergy status to other drugs, medicaments and biological substances
CPT/HCPCS: 67840; 88304; 88305

== ENCOUNTER → 2020-12-27 09:16 | Outpatient (REF) | payer MEDICARE, SELFPAY ==
--- NOTE | 2020-12-27 09:20 | CA_ITS ---
Transthoracic Echocardiogram Patient (Last, First, Middle): Cleo Wright E Gender: Female Date of : 1945 Age: 75 Procedure Date: 12/27/2020 Procedure Type: Transthoracic Echocardiogram Location: OP Height: 165.1 cm Weight: 70.31 kg BSA: 1.78 m2 Heart Rate: bpm BP: 130 / 70 mmHg Engineer System Administrator: GERSON Referring MD: Carlos Hernández MD Shank Inspector: Carlos Hernández MD Symptoms: I35.9 - Nonrheumatic aortic valve disorder, unspecified Study Quality: Fair ECG Rhythm: Sinus Conclusions: - 1. Normal LV systolic function with impaired relaxation filling pattern with increased filling pressures 2. Borderline left atrial enlargement 3. Mild aortic regurgitation and [id number] aortic stenosis 4. Normal RV systolic pressure 5. No pericardial effusion Findings Left Ventricle Normal left ventricular size, thickness, and systolic function. The visually estimated ejection fraction is between 65-70%. Spectral Doppler is indicative of an impaired relaxation filling pattern. Elevated filling pressures. E/E prime ratio is >15, consistent with elevated filling pressures. There is mild septal asymmetric hypertrophy. Right Ventricle Normal right ventricular cavity size and systolic function. Atria The left atrium is likely dilated. There is no evidence of interatrial shunt. The right atrium is normal in size. Aortic Valve The aortic valve was not well visualized. There is mild to moderate aortic valve stenosis. The peak aortic gradient is 29 mmHg.The mean gradient is 16 mmHg. The aortic valve area is 1.47 cm2. There is mild aortic valve regurgitation. Mitral Valve There is mild anterior and posterior mitral leaflet thickening. There is mild mitral annular calcification. There is mild mitral valve regurgitation. There is no mitral valve stenosis. Pulmonic Valve The pulmonic valve was not well visualized. Tricuspid Valve Normal tricuspid valve structure. There is mild tricuspid valve regurgitation. The right ventricular systolic pressure is normal. The right ventricular systolic pressure is 25 mmHg. Normal right atrial pressure. There is no evidence of pulmonary hypertension. Great Vessels All visible segments of the aorta are normal in size. The pulmonary artery was not well visualized. Venous The inferior vena cava is normal in size and collapses greater than 50% with inspiration. Pericardium/Pleural There is no evidence of pericardial effusion. Prior Study Comparison Changes noted compared to prior study dated: 10/20/2018. Aortic stenosis has progressed to mildly Measurements 2D Linear Measurements IVSd: 1.30 0.6-0.9/0.6-1.0 cm LVIDd: 4.10 3.9-5.3/4.2-5.9 cm LVIDd Index: 2.30 2.4-3.2/2.2-3.1 cm/m2 LVIDs: 2.50 2.0-3.6 cm LVPWd: 1.01 0.7-1.1 cm Ao Root: 2.60 2.1-3.5 cm LA Diam: 4.20 2.7-3.8/3.0-4.0 cm LAIDs Index: 2.36 1.5-2.3 cm/m2 LV Mass: 202.23 67-162/88-224 g LV Mass Index: 113.61 43-95/49-115 g/m2 LVOT Diam: 2.00 3.0+(-)1.3 cm 2D Systolic Function EF 4C: 78.80 >55% Mitral Valve MV Pk E: 1.05 MV PK A: 1.08 MV Decel Time: 178.00 E/A: 1.00 E'Lateral: 5.33 E'Medial: 6.42 E/E' Med: 16.40 E/E' Lat: 19.70 PHT: 52.00 MVA PHT: 4.23 Decel [place]: 5.88 Aortic Valve AoV Pk Jony: 2.68 AoV Mn Jony: 1.92 AoV VTI: 0.60 AoV Pk Grad: 29.00 Aov Mn Grad: 16.00 YVAN Cont.VTI: 1.47 AI Pk Jony: 3.74 AI [place]: 2.60 LVOT LVOT Pk Jony: 1.23 LVOT Mn Jony: 0.82 LVOT VTI: 0.28 LVOT Pk Grad: 6.00 LVOT Mn Grad: 3.00 LVOT Diam: 2.00 LVOT Area: 3.14 Diastolic Function MV Pk E: 1.05 MV Pk A: 1.08 E/A: 1.00 E'Medial: 6.42 E/E' Med: 16.40 E' Laterial: 5.33 E/E' Lat: 19.70 Right Ventricle TAPSE (mm): 2.26 Tricuspid Valve TR Pk Jony: 2.36 TR Pk Grad: 22.00 RA Press: 3.00 RVSP: 25.00 Great Vessels Aorta Ao Root-2D: 2.60 2.0-3.7 cm Ao Asc: 2.70 2.1-3.4 cm Updated in Other Vendor System with Status of Final Carlos Hernández MD electronically signed on 12/27/2020 4:52:51 PM with status of Final
== END ==
LOC: HO.CARD 09:16
PROVIDERS: PCP Internal Medicine; Visit Provider Internal Medicine Cardiovascular Disease
DX: I35.9 Nonrheumatic aortic valve disorder, unspecified (principal); I47.1 Supraventricular tachycardia
CPT/HCPCS: 93306

== ENCOUNTER → 2021-01-07 12:48 | Outpatient (BNVA) | payer MEDICARE, SELFPAY | PROVIDERS: PCP Internal Medicine; Referring Provider Internal Medicine; Visit Provider Internal Medicine Cardiovascular Disease | DX: I35.9 Nonrheumatic aortic valve disorder, unspecified (principal); I47.1 Supraventricular tachycardia; E78.00 Pure hypercholesterolemia, unspecified; Z82.49 Family history of ischemic heart disease and other diseases of the circulatory system; Z88.2 Allergy status to sulfonamides; Z88.8 Allergy status to other drugs, medicaments and biological substances; Z79.899 Other long term (current) drug therapy | CPT/HCPCS: 99212 ==

== ENCOUNTER 2021-05-05 13:20 | Outpatient (REF) | payer MEDICARE, SELFPAY ==
--- NOTE | ~2021-05-05 | MM_ITS ---
EXAMINATION: MM SCREENING DIGITAL BREAST TOMOSYNTHESIS, BILATERAL CLINICAL INFORMATION: Screening. Asymptomatic. The lifetime risk of breast cancer based on the Tyrer-Cuzick Model is 2%. COMPARISON: Mammography: 05/03/2020, 04/28/2019, 04/25/2018 TECHNIQUE: Digital breast tomosynthesis is performed in both the craniocaudal and mediolateral oblique views along with computer-aided detection (CAD). Synthesized 2D images are generated from the tomosynthesis. FINDINGS: The breasts are almost entirely fatty (ACR BI-RADS breast composition Category a). There are no significant masses, abnormal calcifications, or other abnormalities. Background stromal and fibroglandular densities are stable. There are no significant changes from prior studies. MM/MM tomosynthesis screening BI IMPRESSION: No mammographic evidence of malignancy. ASSESSMENT: BI-RADS 1: Negative RECOMMENDATION: Routine annual mammography screening. This patient's information was entered into a reminder system with a target due date for their next mammogram.
== END 2021-05-05 13:21 | disposition home or self-care (01) ==
LOC: HO.MAMMO 13:20
PROVIDERS: PCP Internal Medicine; Visit Provider Internal Medicine
DX: Z12.31 Encounter for screening mammogram for malignant neoplasm of breast (principal)
CPT/HCPCS: 77063; 77067

== ENCOUNTER 2021-06-09 08:09 | Outpatient (REF) | payer MEDICARE, SELFPAY ==
[2021-06-09 09:10] LABS: Alanine Aminotransferase 18 U/L (0-31); Albumin Level 4.2 g/dL (3.5-5.0); Alkaline Phosphatase 54 U/L (39-117); Anion Gap 11 (12-20); Aspartate Amino Transferase 19 U/L (5-31); Bilirubin Total 0.7 mg/dL (0.0-1.0); Blood Urea Nitrogen 15 mg/dL (9-16); Calcium 9.8 mg/dL (8.4-10.2); Carbon Dioxide 27 mmol/L (22-29); Chloride 108 mmol/L (96-108); Estimated Glomerular Filt Rate 55; Glucose Random 91 mg/dL (60-115); Potassium 4.2 mmol/L (3.3-5.1); Sodium 142 mmol/L (135-145); Total Protein 7.1 g/dL (6.5-8.0)
== END 2021-06-09 08:10 | disposition home or self-care (01) ==
LOC: HO.LAB 08:09
PROVIDERS: PCP Internal Medicine; Visit Provider Internal Medicine
DX: Z00.00 Encounter for general adult medical examination without abnormal findings (principal); E78.00 Pure hypercholesterolemia, unspecified; F32.5 Major depressive disorder, single episode, in full remission
CPT/HCPCS: 36415; 80053

== ENCOUNTER 2021-07-15 15:22 | Emergency (ER) | payer MEDICARE, SELFPAY ==
--- NOTE | ~2021-07-15 | XR_ITS ---
EXAMINATION: XR CHEST CLINICAL INFORMATION: Shortness of breath COMPARISON: Previous chest x-ray most recent September 2018 TECHNIQUE: Frontal view of the chest was obtained. FINDINGS: No significant abnormality is noted involving the heart, lungs, mediastinum, bony thorax or soft tissues. XR/XR chest 1V IMPRESSION: Unremarkable examination.
[2021-07-15 15:32] VITALS: BP 139/78; BP 144/78; PULSE 100; PULSE 105; PULSE 106; RESP 22; RESP 24; TEMP 36.6; O2SAT 90; O2SAT 93; O2SAT 99; BMI 25.7
--- NOTE | 2021-07-15 15:37 | ECG_ITS ---
Test Reason : DYSPINA Blood Pressure : / mmHG Vent. Rate : 108 BPM Atrial Rate : 108 BPM P-R Int : 168 ms QRS Dur : 070 ms QT Int : 362 ms P-R-T Axes : 073 019 052 degrees QTc Int : 485 ms Sinus tachycardia Otherwise normal ECG When compared with ECG of 18-AUG-2020 11:47, T wave inversion no longer evident in Lateral leads Referred By: Carlota Curtis Electronically Signed By:Marcell Toth
[2021-07-15] MEDS: Albuterol Sulfate (0.083%) 2.5 MG/3 ML VIAL.NEB 10 MG INHALE (15:38)
--- NOTE | 2021-07-15 15:41 | ED_ITS ---
HPI - SOB/Dyspnea General Chief Complaint: Dyspnea Stated Complaint: 80% DIFF BREATHING,ON CPAP PER EMS Time Seen by Provider: 07/15/21 15:36 Source: patient and EMS Mode of arrival: EMS Limitations: no limitations History of Present Illness HPI Narrative: Patient comes emergency room complaining of shortness of breath. Patient was shopping, had a sudden onset of shortness of breath. Patient is known to have COPD, she does not use oxygen. Patient denies any recent illnesses. Patient denies chest pain. Patient called EMS. When EMS picked up the patient, her oxygen saturation was 80% on room air. Patient was started on CPAP with a DuoNeb. Solu-Medrol 125 mg was also given per EMS. Related Data Home Medications Medication Instructions Recorded Confirmed cetirizine 10 mg tablet 10 mg PO DAILY 01/02/20 01/07/21 pravastatin 40 mg tablet 40 mg PO DAILY 01/02/20 01/07/21 albuterol sulfate 90 mcg/actuation 2 puff INHALATION QID PRN 08/18/20 01/07/21 aerosol inhaler citalopram 20 mg tablet 1 tab PO DAILY 08/18/20 01/07/21 Previous Rx's Medication Instructions Recorded omeprazole 20 mg capsule,delayed 20 mg PO BID #0 cap 08/20/20 release diltiazem HCl 120 mg capsule,24 120 mg PO DAILY 90 Days #90 cap 11/11/20 hr,extended release doxycycline hyclate 100 mg capsule 100 mg PO DAILY #13 cap 07/15/21 prednisone 50 mg tablet 50 mg PO DAILY #4 tab 07/15/21 Allergies Allergy/AdvReac Type Severity Reaction Status Date / Time Sulfa (Sulfonamide Allergy Intermediate RASH Verified 08/16/20 10:21 Antibiotics) [SULFA(SULFONAMIDE ANTIBIOTICS)] levofloxacin [From LEVAQUIN] Allergy Unknown UNKNOWN Verified 08/16/20 10:21 azithromycin [From ZITHROMAX] AdvReac Intermediate DIARRHEA Verified 08/16/20 10:21 nebivolol [From BYSTOLIC] AdvReac Intermediate LEG EDEMA Verified 08/16/20 10:21 sertraline [SERTRALINE] AdvReac Intermediate NAUSEA Verified 08/16/20 10:21 Review of Systems Review of Systems: Constitutional : No Weight loss, No Fever, No Chills, No Night Sweats, No Fatigue, No Malaise ENT/Mouth : No Hearing loss, No Ear Pain, No Nasal Congestion, No Sinus Pain, No Hoarseness, No sore throat, No Rhinorrhea, No Swallowing Difficulty Eyes: No Eye Pain, No Swelling, No Redness, No Foreign Body, No Discharge, No Vision Changes Cardiovascular : Feeling of chest pressure without Chest Pain, No SOB, No Dyspnea on Exertion, No Orthopnea, No Edema, No Palpitations Respiratory : Denies cough, complaining of wheezing and significant shortness of breath Gastrointestinal : No Nausea, No Vomiting, No Diarrhea, No Constipation, No abdominal Pain, No Hematochezia, No Melena Genitourinary : no irregular bleeding, No Dysuria, No Urinary Frequency, No Hematuria, No Urinary Incontinence, No Urgency, No Flank Pain, No Urinary Flow Changes, No Hesitancy Musculoskeletal : No joint pain, No Myalgias, No Joint Swelling Skin : No Skin Lesions, No rash Neuro : No Weakness, No Numbness, No Paresthesias, No Loss of Consciousness, No Dizziness, No Headache Psych : No Anxiety/Panic, No Depression, No SI/HI/AH/VH, No Social Issues, Heme/Lymph: No Bruising, No Bleeding,No Lymphadenopathy Endocrine : No Polyuria, No Polydipsia, No Temperature Intolerance PMFSH Past Medical History Medical History Aortic valve disease COPD (chronic obstructive pulmonary disease) Elevated cholesterol Fracture of leg Gastritis GERD (gastroesophageal reflux disease) Hx of irritable bowel syndrome SVT (supraventricular tachycardia) Surgical History H/O colonoscopy History of esophagogastroduodenoscopy (EGD) Hx laparoscopic cholecystectomy Hx of cataract extraction Family History Family History Father No problems noted. Mother CVD (cardiovascular disease) Social History Social History Household Members: Unknown / Unable to assess Housing: Unknown / Unable to assess Do you presently have visiting nurse or other home services: No Unable to assess alcohol history related to: Refusing to respond Alcohol intake: current Alcohol intake frequency: 0-2 drinks per day Patient Tobacco Use Status: Never used Tobacco Second Hand Smoke Exposure: No Substance Use Type: Unknown Advance Directives: Yes Advance Directives on File: Yes Advance Directives Date on File: 08/19/20 service: No Current occupational status: retired Physical Exam Vital Signs: Vital Signs: Last Vital Signs Temp 97.9 F 07/15/21 20:00 Pulse 108 H 07/15/21 20:00 Resp 16 07/15/21 20:00 BP 133/55 L 07/15/21 20:00 Pulse Ox 98 07/15/21 20:00 BMI result Body Mass Index 25.7 Const: Other: Appearance: Alert. Oriented X3. No acute distress. Eyes: Pupils equal, round and reactive to light. ENT: Pharynx normal. Neck: Normal inspection. Neck supple. No lymph nodes noted. No crepitus CVS: Tachycardic, regular rhythm, Pulses normal. Normal S1 and S2 Respiratory: Tachypneic, respiratory rate in the 30s, bilateral diffuse wheezing, poor air movement Abdomen: Soft and nontender. No rigidity. No distention. Skin: Skin warm and dry. Normal skin color. Normal skin turgor. Extremities: No lower extremity edema. No Lacerations. No Rash Neuro: Oriented X 3. No motor deficit. No sensory deficit. Moving all extremities. No slurred speech. CN 2 through 12 grossly intact Psych: calm, cooperative, normal affect Course Course Course Narrative: Patient already received 125 mg of Solu-Medrol, a DuoNeb, no she is getting an hour long breathing treatment. Patient was taking of CPAP, oxygen saturation 99%. Although labs and imaging pending. Patient's white blood cell count is normal, lactic acid elevated, likely secondary to multiple nebulization treatments. Patient has no fever, normal blood pressure, sepsis is not suspected. Chest x-ray is unremarkable. Patient walked around the emergency room, her oxygen saturation remained above 94% on room air. Patient states that she does not feel any shortness of breath, no chest pressure, patient feels back to b aseline. Patient's lactic acid is trending down. Patient is receiving fluids. Patient feels well. As mentioned above, sepsis is not suspected. Patient was given p.o. doxycycline and prednisone for home. Patient states that she has plenty of albuterol at home Patient has been stable, breathing comfortably, saturating above 95% on room air for at least 3 hours, including with exertion. MDM - SOB/Dyspnea Lab Data Result diagrams: 07/15/21 17:16 07/15/21 17:16 Labs: Lab Results 07/15/21 07/15/21 07/15/21 Range/Units 17:16 17:16 17:16 WBC 7.5 (4.8-10.8) X10*3/uL RBC 3.83 L (4.20-5.50) X10*6/uL Hgb 11.9 L (12.0-16.0) g/dl Hct 36.1 L (37.0-47.0) % MCV 94.3 (80.0-98.0) fL MCH 31.1 (27.0-33.0) pg MCHC 33.0 (31.0-35.0) g/dl RDW 12.2 (11.0-16.0) % Plt Count 196 (160-400) X10*3/uL MPV 8.8 L (9.4-12.3) fL Immature Gran % (Auto) 0.3 (0.0-0.4) % Neut % (Auto) 86.5 H (45-73) % Lymph % (Auto) 6.8 L (20-40) % [place] % (Auto) 4.3 (2-11) % Eos % (Auto) 1.3 (0-4) % Baso % (Auto) 0.8 (0-2) % Lymph # (Auto) 0.5 L (1.2-4.9) X10*3/uL [place] # (Auto) 0.3 (0.1-1.2) X10*3/uL Eos # (Auto) 0.1 (0.0-0.4) X10*3/uL Baso # (Auto) 0.1 (0.0-0.2) X10*3/uL Abs Immat Gran (auto) 0.02 (0.00-0.03) X10*3/uL Absolute Neuts (auto) 6.5 (2.0-8.3) x10*3/uL Absolute Nucleated RBC 0.000 (0.0-0.012) X10*3/uL Nucleated RBC % (auto) 0.0 (0.0-0.2) /100WBC PT (9.9-13.0) SEC INR (0.9-1.1) VBG pH (7.32-7.43) VBG pCO2 mmHg VBG pO2 mmHg VBG HCO3 (22-26) mmol/L VBG O2 Saturation % VBG Base Excess mmol/L Sodium 141 (135-145) mmol/L Potassium 3.7 (3.3-5.1) mmol/L Chloride 108 (96-108) mmol/L Carbon Dioxide 22 (22-29) mmol/L Anion Gap 15 (12-20) BUN 18 H (9-16) mg/dL Creatinine 1.13 (0.5-1.4) mg/dL Estim Creat Clear Calc 44.4 Estimated GFR 47 Random Glucose 150 H (60-115) mg/dL Lactic Acid (0.5-2.0) mmol/L Lactic Acid F/U @ 2Hr (0.5-2.0) mmol/L Calcium 9.1 D (8.4-10.2) mg/dL Total Bilirubin 0.3 (0.0-1.0) mg/dL Direct Bilirubin 0.2 (0.0-0.5) mg/dL AST 17 (5-31) U/L ALT 15 (0-31) U/L Alkaline Phosphatase 56 (39-117) U/L Troponin I High Sens (<3.5-17.0) ng/L B-Natriuretic Peptide (<100) pg/mL Total Protein 6.9 (6.5-8.0) g/dL Albumin 4.0 (3.5-5.0) g/dL COVID-19 (STEFF) Negative (Negative) COVID-19 Clin Com See Note Influenza Type A (PETE) (Negative) Influenza Type B (PETE) (Negative) Influenza A & B Note 07/15/21 07/15/21 07/15/21 Range/Units 17:16 17:16 17:17 WBC (4.8-10.8) X10*3/uL RBC (4.20-5.50) X10*6/uL Hgb (12.0-16.0) g/dl Hct (37.0-47.0) % MCV (80.0-98.0) fL MCH (27.0-33.0) pg MCHC (31.0-35.0) g/dl RDW (11.0-16.0) % Plt Count (160-400) X10*3/uL MPV (9.4-12.3) fL Immature Gran % (Auto) (0.0-0.4) % Neut % (Auto) (45-73) % Lymph % (Auto) (20-40) % [place] % (Auto) (2-11) % Eos % (Auto) (0-4) % Baso % (Auto) (0-2) % Lymph # (Auto) (1.2-4.9) X10*3/uL [place] # (Auto) (0.1-1.2) X10*3/uL Eos # (Auto) (0.0-0.4) X10*3/uL Baso # (Auto) (0.0-0.2) X10*3/uL Abs Immat Gran (auto) (0.00-0.03) X10*3/uL Absolute Neuts (auto) (2.0-8.3) x10*3/uL Absolute Nucleated RBC (0.0-0.012) X10*3/uL Nucleated RBC % (auto) (0.0-0.2) /100WBC PT 12.9 (9.9-13.0) SEC INR 1.1 (0.9-1.1) VBG pH (7.32-7.43) VBG pCO2 mmHg VBG pO2 mmHg VBG HCO3 (22-26) mmol/L VBG O2 Saturation % VBG Base Excess mmol/L Sodium (135-145) mmol/L Potassium (3.3-5.1) mmol/L Chloride (96-108) mmol/L Carbon Dioxide (22-29) mmol/L Anion Gap (12-20) BUN (9-16) mg/dL Creatinine (0.5-1.4) mg/dL Estim Creat Clear Calc Estimated GFR Random Glucose (60-115) mg/dL Lactic Acid (0.5-2.0) mmol/L Lactic Acid F/U @ 2Hr (0.5-2.0) mmol/L Calcium (8.4-10.2) mg/dL Total Bilirubin (0.0-1.0) mg/dL Direct Bilirubin (0.0-0.5) mg/dL AST (5-31) U/L ALT (0-31) U/L Alkaline Phosphatase (39-117) U/L Troponin I High Sens 18.6 H (<3.5-17.0) ng/L B-Natriuretic Peptide 83 (<100) pg/mL Total Protein (6.5-8.0) g/dL Albumin (3.5-5.0) g/dL COVID-19 (STEFF) (Negative) COVID-19 Clin Com Influenza Type A (PETE) Negative (Negative) Influenza Type B (PETE) Negative (Negative) Influenza A & B Note See Note 07/15/21 07/15/21 07/15/21 Range/Units 17:17 17:19 20:07 WBC (4.8-10.8) X10*3/uL RBC (4.20-5.50) X10*6/uL Hgb (12.0-16.0) g/dl Hct (37.0-47.0) % MCV (80.0-98.0) fL MCH (27.0-33.0) pg MCHC (31.0-35.0) g/dl RDW (11.0-16.0) % Plt Count (160-400) X10*3/uL MPV (9.4-12.3) fL Immature Gran % (Auto) (0.0-0.4) % Neut % (Auto) (45-73) % Lymph % (Auto) (20-40) % [place] % (Auto) (2-11) % Eos % (Auto) (0-4) % Baso % (Auto) (0-2) % Lymph # (Auto) (1.2-4.9) X10*3/uL [place] # (Auto) (0.1-1.2) X10*3/uL Eos # (Auto) (0.0-0.4) X10*3/uL Baso # (Auto) (0.0-0.2) X10*3/uL Abs Immat Gran (auto) (0.00-0.03) X10*3/uL Absolute Neuts (auto) (2.0-8.3) x10*3/uL Absolute Nucleated RBC (0.0-0.012) X10*3/uL Nucleated RBC % (auto) (0.0-0.2) /100WBC PT (9.9-13.0) SEC INR (0.9-1.1) VBG pH 7.51 H (7.32-7.43) VBG pCO2 22 mmHg VBG pO2 148 mmHg VBG HCO3 18 L (22-26) mmol/L VBG O2 Saturation 99.0 % VBG Base Excess -2.9 mmol/L Sodium (135-145) mmol/L Potassium (3.3-5.1) mmol/L Chloride (96-108) mmol/L Carbon Dioxide (22-29) mmol/L Anion Gap (12-20) BUN (9-16) mg/dL Creatinine (0.5-1.4) mg/dL Estim Creat Clear Calc Estimated GFR Random Glucose (60-115) mg/dL Lactic Acid 3.3 H* (0.5-2.0) mmol/L Lactic Acid F/U @ 2Hr 2.7 H* (0.5-2.0) mmol/L Calcium (8.4-10.2) mg/dL Total Bilirubin (0.0-1.0) mg/dL Direct Bilirubin (0.0-0.5) mg/dL AST (5-31) U/L ALT (0-31) U/L Alkaline Phosphatase (39-117) U/L Troponin I High Sens (<3.5-17.0) ng/L B-Natriuretic Peptide (<100) pg/mL Total Protein (6.5-8.0) g/dL Albumin (3.5-5.0) g/dL COVID-19 (STEFF) (Negative) COVID-19 Clin Com Influenza Type A (PETE) (Negative) Influenza Type B (PETE) (Negative) Influenza A & B Note Discharge Plan Discharge Clinical Impression: COPD (chronic obstructive pulmonary disease) Patient Disposition: Home, Self-Care Instructions: COPD (Chronic Obstructive Pulmonary Disease) (ED) Additional Instructions: Please follow-up with your primary care physician tomorrow. If you have any worsening or new symptoms, please return to the emergency room or call 911 Prescriptions: New doxycycline hyclate 100 mg capsule 100 mg PO DAILY Qty: 13 0RF prednisone 50 mg tablet 50 mg PO DAILY Qty: 4 0RF No Action diltiazem HCl 120 mg capsule,extended release 24 hr 120 mg PO DAILY 90 Days Qty: 90 3RF citalopram 20 mg tablet 1 tab PO DAILY 0RF albuterol sulfate 90 mcg/actuation HFA aerosol inhaler 2 puff inhalation QID PRN (Reason: Shortness Of Breath) 0RF omeprazole 20 mg capsule,delayed release(DR/EC) 20 mg PO BID Qty: 0 0RF cetirizine 10 mg tablet 10 mg PO DAILY 0RF pravastatin 40 mg tablet 40 mg PO DAILY 0RF Referrals: Rebeca Clarke MD [Primary Care Provider] - 1 day
[2021-07-15 17:25] VITALS: BP 114/55; PULSE 104; RESP 16; TEMP 36.7; O2SAT 98
[2021-07-15 17:26] LABS: VBG Base Excess -2.9 mmol/L; VBG HCO3 18 mmol/L (22-26); VBG pCO2 22 mmHg; VBG pH 7.51 (7.32-7.43); VBG pO2 148 mmHg
[2021-07-15 17:26] LABS: Basophils Absolute Auto 0.1 X10*3/uL (0.0-0.2); Basophils Percent Auto 0.8 % (0-2); Eosinophils Absolute Auto 0.1 X10*3/uL (0.0-0.4); Eosinophils Percent Auto 1.3 % (0-4); Hematocrit 36.1 % (37.0-47.0); Hemoglobin 11.9 g/dl (12.0-16.0); Imm Gran Abs Auto 0.02 X10*3/uL (0.00-0.03); Imm Gran Pct Auto 0.3 % (0.0-0.4); Lymphocytes Absolute Auto 0.5 X10*3/uL (1.2-4.9); Lymphocytes Percent Auto 6.8 % (20-40); MANUAL DIFF FLAG NO; Mean Corpuscular Hemoglobin 31.1 pg (27.0-33.0); Mean Corpuscular Volume 94.3 fL (80.0-98.0); Mean Platelet Volume 8.8 fL (9.4-12.3); Monocytes Absolute Auto 0.3 X10*3/uL (0.1-1.2); Monocytes Percent Auto 4.3 % (2-11); Neutrophils Absolute Auto 6.5 x10*3/uL (2.0-8.3); Neutrophils Percent Auto 86.5 % (45-73); Platelet Count 196 X10*3/uL (160-400); Red Blood Count 3.83 X10*6/uL (4.20-5.50); Red Cell Distribution Width 12.2 % (11.0-16.0); White Blood Count 7.5 X10*3/uL (4.8-10.8)
[2021-07-15 17:33] LABS: INTERNATIONAL NORM RATIO 1.1 (0.9-1.1); Prothrombin Time 12.9 SEC (9.9-13.0); Venous Blood Gas Refer to POC result
[2021-07-15 17:45] LABS: Alanine Aminotransferase 15 U/L (0-31); Alkaline Phosphatase 56 U/L (39-117); Anion Gap 15 (12-20); Aspartate Amino Transferase 17 U/L (5-31); Bilirubin Direct 0.2 mg/dL (0.0-0.5); Bilirubin Total 0.3 mg/dL (0.0-1.0); Blood Urea Nitrogen 18 mg/dL (9-16); Calcium 9.1 mg/dL (8.4-10.2); Carbon Dioxide 22 mmol/L (22-29); Chloride 108 mmol/L (96-108); Creatinine Clr Calc Pharmacy 44.4; Estimated Glomerular Filt Rate 47; Glucose Random 150 mg/dL (60-115); Potassium 3.7 mmol/L (3.3-5.1); Sodium 141 mmol/L (135-145); Total Protein 6.9 g/dL (6.5-8.0)
[2021-07-15 17:48] LABS: B Type Natriuretic Peptide 83 pg/mL (<100); Troponin-I High Sensitivity 18.6 ng/L (<3.5-17.0)
[2021-07-15 17:49] LABS: COVID-19 Test Negative (Negative); IDNOW Serial# 16C4AD1C
[2021-07-15 17:49] LABS: Influenza A Negative (Negative); Influenza B2 Negative (Negative)
[2021-07-15 17:56] LABS: Lactic Acid 3.3 mmol/L (0.5-2.0)
[2021-07-15 19:20] LABS: Reflex Lactate? Lactic Acid Added
--- NOTE | 2021-07-15 19:48 | PC.NURSE ---
Pt ambulated down the hallway with O2 sat monitored. O2 sat steady at 94-95%. Pt denies any dizzines or SOB. Provider notified.
[2021-07-15 20:00] VITALS: BP 133/55; PULSE 108; RESP 16; TEMP 36.6; O2SAT 98
[2021-07-15] MEDS: 0.9 % Sodium Chloride 1,000 ML 999 ML IVCONT (20:34)
[2021-07-15 20:40] LABS: ~Lactic Acid-LAB USE ONLY 2.7 mmol/L (0.5-2.0)
[2021-07-15 22:10] LABS: Reflex Lactate? 2 Y
== END 2021-07-15 21:27 | disposition home or self-care (01) ==
PROVIDERS: Emergency Provider Emergency Medicine; PCP Internal Medicine
DX: J44.9 Chronic obstructive pulmonary disease, unspecified (principal); R06.02 Shortness of breath; Z79.899 Other long term (current) drug therapy; Z20.822 Contact with and (suspected) exposure to COVID-19
CPT/HCPCS: 36415; 71045; 80048; 80076; 82803; 83605; 83880; 84484; 85025; 85610; 87040; 87502; 87635; 93005; 94640; 94644; 96360; 99283; 99284

== ENCOUNTER → 2021-07-17 12:51 | Outpatient (BNVA) | payer MEDICARE, SELFPAY | PROVIDERS: PCP Internal Medicine; Referring Provider Internal Medicine; Visit Provider Internal Medicine Cardiovascular Disease | DX: I47.1 Supraventricular tachycardia (principal); I35.9 Nonrheumatic aortic valve disorder, unspecified; R06.00 Dyspnea, unspecified; Z79.899 Other long term (current) drug therapy | CPT/HCPCS: 99212 ==

== ENCOUNTER 2021-07-17 13:38 | Emergency (ER) | payer MEDICARE, SELFPAY ==
--- NOTE | ~2021-07-17 | CT_ITS ---
EXAMINATION: CT CHEST WITHOUT CONTRAST CLINICAL INFORMATION: Dyspnea normal 02, negative d-dimer COMPARISON: None TECHNIQUE: Multidetector volumetric CT imaging of the chest was done. Axial MIP volume rendering provided. Sagittal and coronal reformatted images were obtained. This CT examination was performed using dose optimization techniques as appropriate, variously including the following: *Automated exposure control *Adjustment of mA and/or kV according to patient size (this includes techniques or standardized protocols for targeted exams where dose is matched to indication/reason for exam; i.e. extremities or head) *Use of iterative reconstruction technique DLP: 233 mGy-cm FINDINGS: INDUSTRIAL PHARMACIST: Well-expanded lungs. LUNGS: There is diffuse centrilobular emphysema without acute pneumonic process. There are no pulmonary nodules, mass or consolidation. Platelike atelectatic changes are seen in left lung base lateral segment. MEDIASTINUM: The thyroid lobes are symmetrical and normal. The central trachea and bronchi are widely patent. Heart size and the great vessels are normal caliber. There is no pericardial effusion. No abnormal size mediastinal or hilar lymph nodes seen. PLEURA: There is no pleural effusion. No pleural mass or thickening. AXILLA: No lymphadenopathy. UPPER ABDOMEN: Visualized liver, spleen, pancreas and bilateral adrenal glands unremarkable. The gallbladder has been surgically removed. OSSEOUS STRUCTURES: Mild spondylosis lower dorsal spine. CT/CT chest wo con IMPRESSION: Diffuse emphysema with left basilar atelectasis. No acute consolidation, mass or abnormal mediastinal adenopathy. Fleischner guidelines were followed.
--- NOTE | ~2021-07-17 | XR_ITS ---
EXAMINATION: XR CHEST CLINICAL INFORMATION: Shortness of breath. COMPARISON: 07/15/2021 chest radiograph. TECHNIQUE: Frontal view of the chest was obtained. FINDINGS: No significant abnormality is noted involving the heart, lungs, mediastinum, bony thorax or soft tissues. XR/XR chest 1V IMPRESSION: No acute cardiopulmonary process.
[2021-07-17 13:56] VITALS: BP 114/59; PULSE 78; RESP 18; TEMP 36.9; O2SAT 99; BMI 25.4
--- NOTE | 2021-07-17 14:08 | ECG_ITS ---
Test Reason : shortness of breath Blood Pressure : / mmHG Vent. Rate : 076 BPM Atrial Rate : 076 BPM P-R Int : 144 ms QRS Dur : 070 ms QT Int : 408 ms P-R-T Axes : 071 004 037 degrees QTc Int : 459 ms Sinus rhythm with occasional Premature ventricular complexes Otherwise normal ECG When compared with ECG of 15-JUL-2021 16:43, Premature ventricular complexes are now Present Referred By: Serena Solorzano Electronically Signed By:Marcell Toth
[2021-07-17 15:00] LABS: MANUAL DIFF FLAG NO
[2021-07-17 15:01] LABS: Basophils Percent Auto 0.4 % (0-2); Eosinophils Percent Auto 0.5 % (0-4); Hematocrit 36.1 % (37.0-47.0); Hemoglobin 11.8 g/dl (12.0-16.0); Imm Gran Abs Auto 0.03 X10*3/uL (0.00-0.03); Imm Gran Pct Auto 0.4 % (0.0-0.4); Lymphocytes Absolute Auto 0.7 X10*3/uL (1.2-4.9); Lymphocytes Percent Auto 8.6 % (20-40); Mean Corpuscular HGB Conc 32.7 g/dl (31.0-35.0); Mean Corpuscular Hemoglobin 30.7 pg (27.0-33.0); Mean Platelet Volume 8.8 fL (9.4-12.3); Monocytes Absolute Auto 0.5 X10*3/uL (0.1-1.2); Monocytes Percent Auto 6.1 % (2-11); Platelet Count 239 X10*3/uL (160-400); Red Blood Count 3.84 X10*6/uL (4.20-5.50); Red Cell Distribution Width 12.8 % (11.0-16.0); White Blood Count 8.4 X10*3/uL (4.8-10.8)
[2021-07-17 15:10] LABS: D Dimer High Sensitivity 198 NG/ML
[2021-07-17 15:11] LABS: Lactic Acid 1.7 mmol/L (0.5-2.0)
[2021-07-17 15:16] LABS: Alanine Aminotransferase 18 U/L (0-31); Albumin Level 4.4 g/dL (3.5-5.0); Alkaline Phosphatase 56 U/L (39-117); Anion Gap 14 (12-20); Aspartate Amino Transferase 19 U/L (5-31); Bilirubin Direct 0.2 mg/dL (0.0-0.5); Bilirubin Total 0.5 mg/dL (0.0-1.0); Blood Urea Nitrogen 21 mg/dL (9-16); Calcium 9.9 mg/dL (8.4-10.2); Carbon Dioxide 24 mmol/L (22-29); Chloride 108 mmol/L (96-108); Creatinine Clr Calc Pharmacy 44.3; Estimated Glomerular Filt Rate 49; Glucose Random 100 mg/dL (60-115); Lipase 29 U/L (8-78); Potassium 4.2 mmol/L (3.3-5.1); Sodium 142 mmol/L (135-145); Total Protein 7.5 g/dL (6.5-8.0)
[2021-07-17 15:21] LABS: B Type Natriuretic Peptide 293 pg/mL (<100)
[2021-07-17 15:23] LABS: Troponin-I High Sensitivity 58.5 ng/L (<3.5-17.0)
[2021-07-17 15:45] LABS: Influenza A PCR NEGATIVE (Negative); Influenza B PCR NEGATIVE (Negative); Resp Syncy Virus RNA Qual PCR NEGATIVE (Negative); SARS COV2 PCR INHOUSE NEGATIVE (Negative)
--- NOTE | 2021-07-17 16:28 | ED_ITS ---
HPI - General Adult General Chief complaint: General Medical Stated complaint: COPD Time Seen by Provider: 07/17/21 14:01 Source: patient Mode of arrival: ambulatory Limitations: no limitations History of Present Illness HPI narrative: Patient comes to the emergency room from Dr. Hernández office. Patient had a follow -up appointment after being discharged from the ED 2 days ago. On July 15, patient was seen for a COPD exacerbation. Patient improved with steroids and nebulization treatments. On 07/15/21, on arrival oxygen saturation was 80% on room air, by the time the patient was discharged, patient was no longer wheezing, oxygen saturation 95% on room air during and after an ambulation trial. Patient states that she has no chest pain, patient states that she still feels short of breath, but overall she feels much better than 2 days ago when she was seen here in the emergency room. Also, patient states that today she noticed that her feet are swollen. Patient does not have any pain in her lower extremities. Related Data Home Medications Medication Instructions Recorded Confirmed cetirizine 10 mg tablet 10 mg PO DAILY 01/02/20 07/17/21 pravastatin 40 mg tablet 40 mg PO DAILY 01/02/20 07/17/21 albuterol sulfate 90 mcg/actuation 2 puff INHALATION QID PRN 08/18/20 07/17/21 aerosol inhaler citalopram 20 mg tablet 10 mg PO DAILY tab 07/17/21 07/17/21 Previous Rx's Medication Instructions Recorded diltiazem HCl 120 mg capsule,24 120 mg PO DAILY 90 Days #90 cap 11/11/20 hr,extended release doxycycline hyclate 100 mg capsule 100 mg PO DAILY #13 cap 07/15/21 prednisone 50 mg tablet 50 mg PO DAILY #4 tab 07/15/21 Allergies Allergy/AdvReac Type Severity Reaction Status Date / Time Sulfa (Sulfonamide Allergy Intermediate RASH Verified 07/17/21 13:54 Antibiotics) [SULFA(SULFONAMIDE ANTIBIOTICS)] levofloxacin [From LEVAQUIN] Allergy Unknown UNKNOWN Verified 07/17/21 13:54 azithromycin [From ZITHROMAX] AdvReac Intermediate DIARRHEA Verified 07/17/21 13:54 nebivolol [From BYSTOLIC] AdvReac Intermediate LEG EDEMA Verified 07/17/21 13:54 sertraline [SERTRALINE] AdvReac Intermediate NAUSEA Verified 07/17/21 13:54 Review of Systems Review of Systems: Constitutional : No Weight loss, No Fever, No Chills, No Night Sweats, No Fatigue, No Malaise ENT/Mouth : No Hearing loss, No Ear Pain, No Nasal Congestion, No Sinus Pain, No Hoarseness, No sore throat, No Rhinorrhea, No Swallowing Difficulty Eyes: No Eye Pain, No Swelling, No Redness, No Foreign Body, No Discharge, No Vision Changes Cardiovascular : No Chest Pain, No SOB, No Dyspnea on Exertion, No Orthopnea, No Edema, No Palpitations Respiratory : No Cough, No Sputum, No Wheezing, No Smoke Exposure, complaining of dyspnea at rest Gastrointestinal : No Nausea, No Vomiting, No Diarrhea, No Constipation, No abdominal Pain, No Hematochezia, No Melena Genitourinary : no irregular bleeding, No Dysuria, No Urinary Frequency, No Hematuria, No Urinary Incontinence, No Urgency, No Flank Pain, No Urinary Flow Changes, No Hesitancy Musculoskeletal : No joint pain, No Myalgias, No Joint Swelling Skin : No Skin Lesions, No rash Neuro : No Weakness, No Numbness, No Paresthesias, No Loss of Consciousness, No Dizziness, No Headache Psych : No Anxiety/Panic, No Depression, No SI/HI/AH/VH, No Social Issues, Heme/Lymph: No Bruising, No Bleeding,No Lymphadenopathy Endocrine : No Polyuria, No Polydipsia, No Temperature Intolerance PMFSH Past Medical History Medical History Aortic valve disease COPD (chronic obstructive pulmonary disease) Elevated cholesterol Fracture of leg Gastritis GERD (gastroesophageal reflux disease) Hx of irritable bowel syndrome SVT (supraventricular tachycardia) Surgical History H/O colonoscopy History of esophagogastroduodenoscopy (EGD) Hx laparoscopic cholecystectomy Hx of cataract extraction Family History Family History Father No problems noted. Mother CVD (cardiovascular disease) Social History Social History Household Members: Unknown / Unable to assess Housing: Unknown / Unable to assess Do you presently have visiting nurse or other home services: No Unable to assess alcohol history related to: Refusing to respond Alcohol intake: former Patient Tobacco Use Status: Former Tobacco user Second Hand Smoke Exposure: No Use of substances other than those prescribed or required for medical reasons: No Substance Use Type: Unknown Advance Directives: Yes Advance Directives Information Provided: No Advance Directives on File: No Advance Directives Date on File: 08/19/20 service: No Current occupational status: retired Physical Exam ED Vital Signs: Vital Signs - 24 hr 07/17/21 13:56 07/17/21 16:32 07/17/21 18:40 Temperature 98.4 F Pulse Rate 78 75 71 Respiratory Rate 18 18 15 Blood Pressure 114/59 L 142/51 H 103/46 L Pulse Oximetry 99 98 95 07/17/21 19:41 Temperature 97.8 F Pulse Rate 81 Respiratory Rate 17 Blood Pressure 148/56 H Pulse Oximetry 99 BMI result Body Mass Index 25.4 Const Other: Vitals: Blood pressure 114 over 59, pulse 78, respirations 18, oxygen saturation 99% on room air Appearance: Alert. Oriented X3. No acute distress. Well appearing Eyes: Pupils equal, round and reactive to light. ENT: Pharynx normal. Neck: Normal inspection. Neck supple. No lymph nodes noted. No crepitus CVS: Normal heart rate and rhythm. Pulses normal. Normal S1 and S2 Respiratory: No respiratory distress. Breath sounds normal. No Wheezing. No rales Abdomen: Soft and nontender. No rigidity. No distention. Skin: Skin warm and dry. Normal skin color. Normal skin turgor. Extremities: Patient has +1 pitting edema in lower extremities Neuro: Oriented X 3. No motor deficit. No sensory deficit. Moving all extremities. No slurred speech. CN 2 through 12 grossly intact Psych: calm, cooperative, normal affect Course Course Course Narrative: Patient has not had any chest pain at all. Chest x-ray shows no acute cardiopulmonary process. White blood cell count is within normal limits, D- dimer 198, negative (age adjusted 740NG/ML). Two days ago, the BNP was 83, troponin 18.6, today the BNP increased to 293, troponin 58.5, second troponin is 52.7. As mentioned above, patient has no chest pain Patient's lactic acid is back to normal. Patient has not been using nebulization treatments. Previous lactic acid elevation on July 15, likely secondary to albuterol treatment Well's Score for PE is 0 CT scan shows diffuse emphysema with left basilar atelectasis, no consolidation, mass or abnormal mediastinal adenopathy Patient was ambulated around the emergency room. Patient's oxygen saturation remained at 97%. Patient was asked multiple times if she was feeling short of breath, or had any chest pain. Patient states that during the walk , before and after, she had no shortness of breath not even mild. Patient also denied CP, dizziness or lightheadedness. Patient states she feels completely normal Today, patient did not receive any breathing treatments or steroids here in the emergency room. Patient remains asymptomatic. Discussed the labs, EKG and CT scan with Dr. Toth per Dr. Adams's request, Dr. Toth agrees that the pt's symptoms are COPD related. No further tx recommended. Pt instructed to follow up with her primary care physician. Medical Decision Making Lab Data Result diagrams: 07/17/21 14:47 07/17/21 14:47 Labs: Lab Results 07/17/21 07/17/21 07/17/21 Range/Units 14:47 14:47 14:47 WBC 8.4 (4.8-10.8) X10*3/uL RBC 3.84 L (4.20-5.50) X10*6/uL Hgb 11.8 L (12.0-16.0) g/dl Hct 36.1 L (37.0-47.0) % MCV 94.0 (80.0-98.0) fL MCH 30.7 (27.0-33.0) pg MCHC 32.7 (31.0-35.0) g/dl RDW 12.8 (11.0-16.0) % Plt Count 239 (160-400) X10*3/uL MPV 8.8 L (9.4-12.3) fL Immature Gran % (Auto) 0.4 (0.0-0.4) % Neut % (Auto) 84.0 H (45-73) % Lymph % (Auto) 8.6 L (20-40) % [place] % (Auto) 6.1 (2-11) % Eos % (Auto) 0.5 (0-4) % Baso % (Auto) 0.4 (0-2) % Lymph # (Auto) 0.7 L (1.2-4.9) X10*3/uL [place] # (Auto) 0.5 (0.1-1.2) X10*3/uL Eos # (Auto) 0.0 (0.0-0.4) X10*3/uL Baso # (Auto) 0.0 (0.0-0.2) X10*3/uL Abs Immat Gran (auto) 0.03 (0.00-0.03) X10*3/uL Absolute Neuts (auto) 7.0 (2.0-8.3) x10*3/uL Absolute Nucleated RBC 0.000 (0.0-0.012) X10*3/uL Nucleated RBC % (auto) 0.0 (0.0-0.2) /100WBC D-Dimer High Sensitivty 198 NG/ML Sodium 142 (135-145) mmol/L Potassium 4.2 (3.3-5.1) mmol/L Chloride 108 (96-108) mmol/L Carbon Dioxide 24 (22-29) mmol/L Anion Gap 14 (12-20) BUN 21 H (9-16) mg/dL Creatinine 1.09 (0.5-1.4) mg/dL Estim Creat Clear Calc 44.3 Estimated GFR 49 Random Glucose 100 (60-115) mg/dL Lactic Acid (0.5-2.0) mmol/L Calcium 9.9 D (8.4-10.2) mg/dL Total Bilirubin 0.5 (0.0-1.0) mg/dL Direct Bilirubin 0.2 (0.0-0.5) mg/dL AST 19 (5-31) U/L ALT 18 (0-31) U/L Alkaline Phosphatase 56 (39-117) U/L Troponin I High Sens (<3.5-17.0) ng/L B-Natriuretic Peptide (<100) pg/mL Total Protein 7.5 (6.5-8.0) g/dL Albumin 4.4 (3.5-5.0) g/dL Lipase 29 (8-78) U/L Urine Color Urine Appearance Urine pH (5.0-8.0) Ur Specific [place] (1.005-1.025) Urine Protein (NEG-TRACE) MG/DL Urine Glucose (UA) (NEG) MG/DL Urine Ketones (NEG) MG/DL Urine Blood (NEG) Urine Nitrite (NEG) Ur Leukocyte Esterase (NEG) Urine RBC (0) /HPF Urine WBC (0-4) /HPF Ur Squamous Epith Cells /LPF Amorphous Sediment /LPF Urine Bacteria /LPF Urine Mucus /LPF Influenza Type A (PCR) (Negative) Influenza Type B (PCR) (Negative) RSV RNA Qual (PCR) (Negative) SARS-CoV-2 RNA (RT-PCR) (Negative) 07/17/21 07/17/21 07/17/21 Range/Units 14:47 14:47 14:47 WBC (4.8-10.8) X10*3/uL RBC (4.20-5.50) X10*6/uL Hgb (12.0-16.0) g/dl Hct (37.0-47.0) % MCV (80.0-98.0) fL MCH (27.0-33.0) pg MCHC (31.0-35.0) g/dl RDW (11.0-16.0) % Plt Count (160-400) X10*3/uL MPV (9.4-12.3) fL Immature Gran % (Auto) (0.0-0.4) % Neut % (Auto) (45-73) % Lymph % (Auto) (20-40) % [place] % (Auto) (2-11) % Eos % (Auto) (0-4) % Baso % (Auto) (0-2) % Lymph # (Auto) (1.2-4.9) X10*3/uL [place] # (Auto) (0.1-1.2) X10*3/uL Eos # (Auto) (0.0-0.4) X10*3/uL Baso # (Auto) (0.0-0.2) X10*3/uL Abs Immat Gran (auto) (0.00-0.03) X10*3/uL Absolute Neuts (auto) (2.0-8.3) x10*3/uL Absolute Nucleated RBC (0.0-0.012) X10*3/uL Nucleated RBC % (auto) (0.0-0.2) /100WBC D-Dimer High Sensitivty NG/ML Sodium (135-145) mmol/L Potassium (3.3-5.1) mmol/L Chloride (96-108) mmol/L Carbon Dioxide (22-29) mmol/L Anion Gap (12-20) BUN (9-16) mg/dL Creatinine (0.5-1.4) mg/dL Estim Creat Clear Calc Estimated GFR Random Glucose (60-115) mg/dL Lactic Acid 1.7 (0.5-2.0) mmol/L Calcium (8.4-10.2) mg/dL Total Bilirubin (0.0-1.0) mg/dL Direct Bilirubin (0.0-0.5) mg/dL AST (5-31) U/L ALT (0-31) U/L Alkaline Phosphatase (39-117) U/L Troponin I High Sens 58.5 H* D (<3.5-17.0) ng/L B-Natriuretic Peptide 293 H (<100) pg/mL Total Protein (6.5-8.0) g/dL Albumin (3.5-5.0) g/dL Lipase (8-78) U/L Urine Color Urine Appearance Urine pH (5.0-8.0) Ur Specific [place] (1.005-1.025) Urine Protein (NEG-TRACE) MG/DL Urine Glucose (UA) (NEG) MG/DL Urine Ketones (NEG) MG/DL Urine Blood (NEG) Urine Nitrite (NEG) Ur Leukocyte Esterase (NEG) Urine RBC (0) /HPF Urine WBC (0-4) /HPF Ur Squamous Epith Cells /LPF Amorphous Sediment /LPF Urine Bacteria /LPF Urine Mucus /LPF Influenza Type A (PCR) (Negative) Influenza Type B (PCR) (Negative) RSV RNA Qual (PCR) (Negative) SARS-CoV-2 RNA (RT-PCR) (Negative) 07/17/21 07/17/21 07/17/21 Range/Units 14:51 17:58 17:58 WBC (4.8-10.8) X10*3/uL RBC (4.20-5.50) X10*6/uL Hgb (12.0-16.0) g/dl Hct (37.0-47.0) % MCV (80.0-98.0) fL MCH (27.0-33.0) pg MCHC (31.0-35.0) g/dl RDW (11.0-16.0) % Plt Count (160-400) X10*3/uL MPV (9.4-12.3) fL Immature Gran % (Auto) (0.0-0.4) % Neut % (Auto) (45-73) % Lymph % (Auto) (20-40) % [place] % (Auto) (2-11) % Eos % (Auto) (0-4) % Baso % (Auto) (0-2) % Lymph # (Auto) (1.2-4.9) X10*3/uL [place] # (Auto) (0.1-1.2) X10*3/uL Eos # (Auto) (0.0-0.4) X10*3/uL Baso # (Auto) (0.0-0.2) X10*3/uL Abs Immat Gran (auto) (0.00-0.03) X10*3/uL Absolute Neuts (auto) (2.0-8.3) x10*3/uL Absolute Nucleated RBC (0.0-0.012) X10*3/uL Nucleated RBC % (auto) (0.0-0.2) /100WBC D-Dimer High Sensitivty NG/ML Sodium (135-145) mmol/L Potassium (3.3-5.1) mmol/L Chloride (96-108) mmol/L Carbon Dioxide (22-29) mmol/L Anion Gap (12-20) BUN (9-16) mg/dL Creatinine (0.5-1.4) mg/dL Estim Creat Clear Calc Estimated GFR Random Glucose (60-115) mg/dL Lactic Acid 1.9 (0.5-2.0) mmol/L Calcium (8.4-10.2) mg/dL Total Bilirubin (0.0-1.0) mg/dL Direct Bilirubin (0.0-0.5) mg/dL AST (5-31) U/L ALT (0-31) U/L Alkaline Phosphatase (39-117) U/L Troponin I High Sens 52.7 H* (<3.5-17.0) ng/L B-Natriuretic Peptide (<100) pg/mL Total Protein (6.5-8.0) g/dL Albumin (3.5-5.0) g/dL Lipase (8-78) U/L Urine Color Urine Appearance Urine pH (5.0-8.0) Ur Specific [place] (1.005-1.025) Urine Protein (NEG-TRACE) MG/DL Urine Glucose (UA) (NEG) MG/DL Urine Ketones (NEG) MG/DL Urine Blood (NEG) Urine Nitrite (NEG) Ur Leukocyte Esterase (NEG) Urine RBC (0) /HPF Urine WBC (0-4) /HPF Ur Squamous Epith Cells /LPF Amorphous Sediment /LPF Urine Bacteria /LPF Urine Mucus /LPF Influenza Type A (PCR) NEGATIVE (Negative) Influenza Type B (PCR) NEGATIVE (Negative) RSV RNA Qual (PCR) NEGATIVE (Negative) SARS-CoV-2 RNA (RT-PCR) NEGATIVE (Negative) 07/17/21 Range/Units 17:58 WBC (4.8-10.8) X10*3/uL RBC (4.20-5.50) X10*6/uL Hgb (12.0-16.0) g/dl Hct (37.0-47.0) % MCV (80.0-98.0) fL MCH (27.0-33.0) pg MCHC (31.0-35.0) g/dl RDW (11.0-16.0) % Plt Count (160-400) X10*3/uL MPV (9.4-12.3) fL Immature Gran % (Auto) (0.0-0.4) % Neut % (Auto) (45-73) % Lymph % (Auto) (20-40) % [place] % (Auto) (2-11) % Eos % (Auto) (0-4) % Baso % (Auto) (0-2) % Lymph # (Auto) (1.2-4.9) X10*3/uL [place] # (Auto) (0.1-1.2) X10*3/uL Eos # (Auto) (0.0-0.4) X10*3/uL Baso # (Auto) (0.0-0.2) X10*3/uL Abs Immat Gran (auto) (0.00-0.03) X10*3/uL Absolute Neuts (auto) (2.0-8.3) x10*3/uL Absolute Nucleated RBC (0.0-0.012) X10*3/uL Nucleated RBC % (auto) (0.0-0.2) /100WBC D-Dimer High Sensitivty NG/ML Sodium (135-145) mmol/L Potassium (3.3-5.1) mmol/L Chloride (96-108) mmol/L Carbon Dioxide (22-29) mmol/L Anion Gap (12-20) BUN (9-16) mg/dL Creatinine (0.5-1.4) mg/dL Estim Creat Clear Calc Estimated GFR Random Glucose (60-115) mg/dL Lactic Acid (0.5-2.0) mmol/L Calcium (8.4-10.2) mg/dL Total Bilirubin (0.0-1.0) mg/dL Direct Bilirubin (0.0-0.5) mg/dL AST (5-31) U/L ALT (0-31) U/L Alkaline Phosphatase (39-117) U/L Troponin I High Sens (<3.5-17.0) ng/L B-Natriuretic Peptide (<100) pg/mL Total Protein (6.5-8.0) g/dL Albumin (3.5-5.0) g/dL Lipase (8-78) U/L Urine Color YELLOW Urine Appearance CLEAR Urine pH 6.0 (5.0-8.0) Ur Specific [place] 1.010 (1.005-1.025) Urine Protein NEG (NEG-TRACE) MG/DL Urine Glucose (UA) NEG (NEG) MG/DL Urine Ketones NEG (NEG) MG/DL Urine Blood NEG (NEG) Urine Nitrite NEG (NEG) Ur Leukocyte Esterase 1+ H (NEG) Urine RBC 0-2 (0) /HPF Urine WBC 5-9 H (0-4) /HPF Ur Squamous Epith Cells 1+ /LPF Amorphous Sediment TRACE /LPF Urine Bacteria NONE /LPF Urine Mucus TRACE /LPF Influenza Type A (PCR) (Negative) Influenza Type B (PCR) (Negative) RSV RNA Qual (PCR) (Negative) SARS-CoV-2 RNA (RT-PCR) (Negative) Imaging Data Chest CT: Radiologist's impression: FINDINGS: LEATHER PATCHER: Well-expanded lungs. LUNGS: There is diffuse centrilobular emphysema without acute pneumonic process. There are no pulmonary nodules, mass or consolidation. Platelike atelectatic changes are seen in left lung base lateral segment.? MEDIASTINUM: The thyroid lobes are symmetrical and normal. The central trachea and bronchi are widely patent. Heart size and the great vessels are normal caliber. There is no pericardial effusion. No abnormal size mediastinal or hilar lymph nodes seen. PLEURA: There is no pleural effusion. No pleural mass or thickening.? AXILLA: No lymphadenopathy.? UPPER ABDOMEN: Visualized liver, spleen, pancreas and bilateral adrenal glands unremarkable. The gallbladder has been surgically removed.? OSSEOUS STRUCTURES: Mild spondylosis lower dorsal spine.? CT/CT chest wo con IMPRESSION: Diffuse emphysema with left basilar atelectasis. No acute consolidation, mass or abnormal mediastinal adenopathy. ? Fleischner guidelines were followed. ECG Data Attestation: I personally reviewed and interpreted this ECG as follows: (Sinus rhythm with occasional PVCs, heart rate 76, no ST segment depressions or elevations, QTC 459) Discharge Plan Discharge Clinical Impression: Dyspnea Patient Disposition: Home, Self-Care Instructions: Dyspnea (ED) Additional Instructions: Please follow-up with your primary care physician tomorrow. If you have any worsening or new symptoms, please return to the emergency room or call 911 Prescriptions: No Action diltiazem HCl 120 mg capsule,extended release 24 hr 120 mg PO DAILY 90 Days Qty: 90 3RF albuterol sulfate 90 mcg/actuation HFA aerosol inhaler 2 puff inhalation QID PRN (Reason: Shortness Of Breath) 0RF citalopram 20 mg tablet 10 mg PO DAILY 0RF doxycycline hyclate 100 mg capsule 100 mg PO DAILY Qty: 13 0RF prednisone 50 mg tablet 50 mg PO DAILY Qty: 4 0RF cetirizine 10 mg tablet 10 mg PO DAILY 0RF pravastatin 40 mg tablet 40 mg PO DAILY 0RF Referrals: Willian Grigsby MD [Physician] - 3 days
[2021-07-17 16:32] VITALS: BP 142/51; PULSE 75; RESP 18; O2SAT 98
--- NOTE | 2021-07-17 16:39 | PC.NURSE ---
Pt alert/oriented. States slight SOB, recently here for Wednesday for SOB and seen by cardioogy today and snt here for further evaluation. Denies chest pain, LS CTA. sat 95% on room air. 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 SKin pink warm and dry. NSR on tele. Awaits repeat troponin
[2021-07-17 18:06] LABS: Appearance Urine CLEAR; Color Urine YELLOW; Glucose Urine UA NEG (NEG); Leukocyte Esterase Urine 1+ (NEG); Nitrite Urine NEG (NEG); UACC Culture Trigger YES; Urine Blood NEG (NEG); Urine Ketones NEG (NEG); Urine Protein NEG (NEG-TRACE)
[2021-07-17 18:14] LABS: Mucus Urine TRACE /LPF; Squamous Epithelial Cell Urine 1+ /LPF
[2021-07-17 18:15] LABS: Lactic Acid 1.9 mmol/L (0.5-2.0)
[2021-07-17 18:16] LABS: RBC Urine 0-2 /HPF (0)
[2021-07-17 18:17] LABS: Amorphous Sediment Urine TRACE /LPF
[2021-07-17 18:28] LABS: Troponin-I High Sensitivity 52.7 ng/L (<3.5-17.0)
[2021-07-17 18:40] VITALS: BP 103/46; PULSE 71; RESP 15; O2SAT 95
[2021-07-17 19:41] VITALS: BP 148/56; PULSE 81; RESP 17; TEMP 36.6; O2SAT 99
--- NOTE | 2021-07-17 19:42 | PC.NURSE ---
PATIENT WENT FOR A WALK O2 SAT REMAIN AT 97 _98 % ON ROOM AIR ,MD PACHECO AWARE ,PATIENT STATED SHE DID NOT FEEL SHORT OF BREATH DURING AMBULATION .
== END 2021-07-17 20:31 | disposition home or self-care (01) ==
PROVIDERS: Emergency Medicine; Emergency Provider Emergency Medicine; PCP Internal Medicine
DX: R06.02 Shortness of breath (principal); J44.9 Chronic obstructive pulmonary disease, unspecified; E78.5 Hyperlipidemia, unspecified; Z79.02 Long term (current) use of antithrombotics/antiplatelets; Z20.822 Contact with and (suspected) exposure to COVID-19
CPT/HCPCS: 0241U; 36415; 71045; 71250; 80053; 81001; 82248; 83605; 83690; 83880; 84484; 85025; 85379; 87086; 93005; 99284

== ENCOUNTER 2021-08-13 12:00 | Outpatient (RCR) | payer MEDICARE, SELFPAY ==
--- NOTE | 2021-07-11 13:47 | MHC.PT.EP ---
[facility] [place] Office [place] Office [place] [facility] [address] Rodrigo Rashid [address] [phone] F: [phone] F: [phone] F: [phone] F: [phone] Physical Therapy Plan of Care Date of Evaluation: Date of Surgery: N/A Diagnosis: spinal stenosis Assessment: pt's signs and symptoms consistent w/ sacroilitis and lumbar stenosis. pt presents to physical therapy with pain, decreased range of motion, decreased strength, impaired functional mobility, impaired postural awareness, and gait deviations. pt is a good candidate for skilled PT due to age, potential remediation of impairments, typical disease/condition progression and prognosis, comorbidities, and motivation. pt would benefit from tailored strengthening and stretching exercise program, functional training, gait training, postural re-training, neuromuscular re-education, modalities as needed for pain, equipment safety demonstration. Frequency and Duration: The patient will be seen 2x/wk for 4 wks Short Term Goals: pt will be I w/ HEP to promote self-management of condition. pt will demo proper sitting posture w/ lumbar roll to promote neutral spine in sitting for seated ADLs. Senior Living Goals: pt will report a statistically significant improvement in self-reported outcome measure, [place], to promote return to PLOF. pt will demo proper lifting mechanics without verbal cueing x5 reps of 15# to promote return to functional lifting (i.e. laundry basket, groceries). Treatment Plan: Modalities to reduce pain, spasms and effusion. Manual therapy to restore motion and function. Therapeutic exercise to improve strength and flexibility. Neuromuscular re-education for posture and balance. Therapeutic activities to return to functional activities of daily living. Electronically signed by: Kisha Camara PT, DPT Please sign and return to therapist. Thank you for your referral.
--- NOTE | 2021-08-19 10:10 | MHC.PT.DC ---
[facility] [place] Office [place] [facility] [place] [facility] [address] [phone] F: [phone] F: [phone] F: [phone] F: [phone] Physical Therapy Discharge Report Diagnosis: spinal stenosis Date of Surgery: N/A Date of Evaluation: 07/11/21 Date of Discharge: 08/19/21 Treatments to Date: 8 Cancellations to Date: 1 No Shows to Date: 0 Discharge Status: Improved Function Independent with HEP Discharge Summary: The patient overall reported a significant improvement in her pain intensity, severity, and frequency. She stated she rarely gets any back pain and described it more as an irritation than a true pain. She is independent with her home exercise program. The patient is discharged from this physical therapy plan of care to her home exercise program. Electronically signed by: Kisha Camara PT, DPT Please sign and return to therapist. Thank you for your referral.
== END 2021-08-19 10:11 | disposition home or self-care (01) ==
LOC: HO.PT 12:00
PROVIDERS: PCP Internal Medicine; Visit Provider Internal Medicine
DX: M48.00 Spinal stenosis, site unspecified (principal)
CPT/HCPCS: 97110; 97150; 97162

== ENCOUNTER 2021-10-17 09:02 | Outpatient (REF) | payer MEDICARE, SELFPAY ==
[2021-10-17 09:15] LABS: MANUAL DIFF FLAG NO
[2021-10-17 09:47] LABS: Basophils Absolute Auto 0.1 X10*3/uL (0.0-0.2); Basophils Percent Auto 1.7 % (0-2); Eosinophils Absolute Auto 0.3 X10*3/uL (0.0-0.4); Hematocrit 37.5 % (37.0-47.0); Hemoglobin 12.2 g/dl (12.0-16.0); Imm Gran Abs Auto 0.01 X10*3/uL (0.00-0.03); Imm Gran Pct Auto 0.3 % (0.0-0.4); Lymphocytes Percent Auto 28.9 % (20-40); Mean Corpuscular HGB Conc 32.5 g/dl (31.0-35.0); Mean Corpuscular Hemoglobin 30.4 pg (27.0-33.0); Mean Corpuscular Volume 93.5 fL (80.0-98.0); Mean Platelet Volume 8.6 fL (9.4-12.3); Monocytes Absolute Auto 0.5 X10*3/uL (0.1-1.2); Monocytes Percent Auto 13.2 % (2-11); Neutrophils Absolute Auto 1.7 x10*3/uL (2.0-8.3); Neutrophils Percent Auto 47.9 % (45-73); Platelet Count 199 X10*3/uL (160-400); Red Blood Count 4.01 X10*6/uL (4.20-5.50); Red Cell Distribution Width 12.9 % (11.0-16.0); White Blood Count 3.5 X10*3/uL (4.8-10.8)
[2021-10-17 10:11] LABS: Alanine Aminotransferase 13 U/L (0-31); Albumin Level 4.1 g/dL (3.5-5.0); Alkaline Phosphatase 48 U/L (39-117); Anion Gap 13 (12-20); Aspartate Amino Transferase 19 U/L (5-31); Bilirubin Total 0.7 mg/dL (0.0-1.0); Blood Urea Nitrogen 15 mg/dL (9-16); Calcium 9.4 mg/dL (8.4-10.2); Carbon Dioxide 29 mmol/L (22-29); Chloride 106 mmol/L (96-108); Cholesterol 160 mg/dL; Estimated Glomerular Filt Rate 54; Glucose Random 88 mg/dL (60-115); HDL Cholesterol 66 mg/dL; LDL Cholesterol Calculated 82 mg/dl; Potassium 4.5 mmol/L (3.3-5.1); Sodium 143 mmol/L (135-145); Total Protein 6.8 g/dL (6.5-8.0); Triglycerides 61 mg/dL
[2021-10-17 10:34] LABS: Thyroid Stimulating Hormone 2.49 uIU/mL (0.32-4.0)
== END 2021-10-17 09:03 | disposition home or self-care (01) ==
LOC: HO.LAB 09:02
PROVIDERS: PCP Internal Medicine; Visit Provider Internal Medicine
DX: E78.00 Pure hypercholesterolemia, unspecified (principal); F32.5 Major depressive disorder, single episode, in full remission; I10 Essential (primary) hypertension; J44.9 Chronic obstructive pulmonary disease, unspecified; M48.062 Spinal stenosis, lumbar region with neurogenic claudication; R63.4 Abnormal weight loss
CPT/HCPCS: 36415; 80053; 80061; 84443; 85025

== ENCOUNTER 2021-10-20 13:42 | Outpatient (REF) | payer MEDICARE, SELFPAY ==
--- NOTE | ~2021-10-20 | CT_ITS ---
EXAMINATION: CT ABDOMEN AND PELVIS WITH CONTRAST CLINICAL INFORMATION: Lower abdominal pain COMPARISON: 08/16/2020 TECHNIQUE: Multidetector volumetric images were obtained from the superior aspect of the liver through the pubic symphysis following administration 85 mL of Omnipaque 350 intravenous contrast. Sagittal and coronal reformatted images were obtained on the technologist's workstation. Oral contrast: No This CT examination was performed using dose optimization techniques as appropriate, variously including the following: *Automated exposure control *Adjustment of mA and/or kV according to patient size (this includes techniques or standardized protocols for targeted exams where dose is matched to indication/reason for exam; i.e. extremities or head) *Use of iterative reconstruction technique DLP: 323 mGy-cm FINDINGS: LUNG BASES: The visualized lung bases are unremarkable. LIVER, GALLBLADDER, AND BILIARY TREE: Unchanged subcentimeter likely cysts in the liver. No new suspicious or concerning liver lesion seen. No biliary ductal dilatation.. Status post cholecystectomy. PANCREAS: Diffuse pancreatic atrophy. SPLEEN: Unremarkable. ADRENAL GLANDS: Unremarkable. KIDNEYS AND URETERS: Multiple bilateral well-circumscribed homogeneous water density simple renal cortical cysts are present, considered Bosniak 1 and 2 cysts for which no imaging follow-up is recommended.. There may be slightly asymmetric hypoenhancement of the left kidney relative to the right. There are prominent extrarenal pelvises bilaterally but no hydronephrosis or hydroureter. No calculi. BLADDER: Unremarkable. GASTROINTESTINAL TRACT: Likely a small hiatal hernia. Stomach and small bowel are nondilated. Normal appendix. Scattered colonic diverticulosis. No evidence of colitis or diverticulitis. Moderate volume stool throughout the colon. ABDOMINAL WALL: Small fat-containing umbilical hernia. LYMPH NODES: No pathologically enlarged lymphadenopathy. VASCULAR: Normal caliber abdominal aorta with moderate calcified and noncalcified atherosclerotic changes. PELVIC VISCERA: Normal CT appearance of the uterus and ovaries. OSSEOUS STRUCTURES: Multilevel degenerative changes are present. There is high density material in the L1-L2 disc space that extends into a Schmorl's node of the superior endplate of L2. This could be sequelae of a prior discogram. CT/CT abdomen pelvis w IV con IMPRESSION: No acute CT findings. There is a fairly large volume stool throughout the colon. Constipation could have this appearance. No evidence of colitis or diverticulitis. Status post cholecystectomy.
[2021-10-20] MEDS: Barium Sulfate Oral (Vanilla) 450 ML ORAL.SUSP 900 ML PO (16:12)
[2021-10-20] MEDS: iohexoL 350 MG/ML 100 ML INFUS..BTL IV (16:13)
== END 2021-10-20 13:43 | disposition home or self-care (01) ==
LOC: HO.CT 13:42
PROVIDERS: PCP Internal Medicine; Visit Provider Internal Medicine
DX: R10.31 Right lower quadrant pain (principal)
CPT/HCPCS: 74177; Q9967

== ENCOUNTER 2021-12-11 10:08 | Outpatient (REF) | payer MEDICARE, SELFPAY ==
[2021-12-11 10:33] LABS: MANUAL DIFF FLAG NO
[2021-12-11 11:58] LABS: Basophils Absolute Auto 0.1 X10*3/uL (0.0-0.2); Basophils Percent Auto 2.6 % (0-2); Eosinophils Absolute Auto 0.3 X10*3/uL (0.0-0.4); Eosinophils Percent Auto 9.6 % (0-4); Hematocrit 36.8 % (37.0-47.0); Hemoglobin 12.3 g/dl (12.0-16.0); Lymphocytes Absolute Auto 1.1 X10*3/uL (1.2-4.9); Lymphocytes Percent Auto 34.8 % (20-40); Mean Corpuscular HGB Conc 33.4 g/dl (31.0-35.0); Mean Corpuscular Hemoglobin 31.2 pg (27.0-33.0); Mean Corpuscular Volume 93.4 fL (80.0-98.0); Mean Platelet Volume 8.9 fL (9.4-12.3); Monocytes Absolute Auto 0.5 X10*3/uL (0.1-1.2); Monocytes Percent Auto 14.9 % (2-11); Neutrophils Absolute Auto 1.2 x10*3/uL (2.0-8.3); Neutrophils Percent Auto 38.1 % (45-73); Platelet Count 231 X10*3/uL (160-400); Red Blood Count 3.94 X10*6/uL (4.20-5.50); Red Cell Distribution Width 12.5 % (11.0-16.0)
[2021-12-11 12:34] LABS: Alanine Aminotransferase 13 U/L (0-31); Albumin Level 4.3 g/dL (3.5-5.0); Alkaline Phosphatase 50 U/L (39-117); Anion Gap 16 (12-20); Aspartate Amino Transferase 19 U/L (5-31); Bilirubin Total 0.8 mg/dL (0.0-1.0); Blood Urea Nitrogen 14 mg/dL (9-16); Calcium 9.4 mg/dL (8.4-10.2); Carbon Dioxide 26 mmol/L (22-29); Chloride 106 mmol/L (96-108); Cholesterol 158 mg/dL; Estimated Glomerular Filt Rate 56; Glucose Random 80 mg/dL (60-115); HDL Cholesterol 56 mg/dL; LDL Cholesterol Calculated 84 mg/dl; Potassium 4.5 mmol/L (3.3-5.1); Sodium 143 mmol/L (135-145); Triglycerides 94 mg/dL
[2021-12-11 12:44] LABS: Thyroid Stimulating Hormone 2.88 uIU/mL (0.32-4.0)
== END 2021-12-11 10:09 | disposition home or self-care (01) ==
LOC: HO.LAB 10:08
PROVIDERS: PCP Internal Medicine; Visit Provider Internal Medicine
DX: E78.00 Pure hypercholesterolemia, unspecified (principal); F32.5 Major depressive disorder, single episode, in full remission; I10 Essential (primary) hypertension; J44.9 Chronic obstructive pulmonary disease, unspecified; M48.062 Spinal stenosis, lumbar region with neurogenic claudication; R63.4 Abnormal weight loss
CPT/HCPCS: 36415; 80053; 80061; 84443; 85025

== ENCOUNTER → 2021-12-30 12:49 | Outpatient (REF) | payer MEDICARE, SELFPAY ==
--- NOTE | 2021-12-30 12:51 | CA_ITS ---
Transthoracic Echocardiogram Patient (Last, First, Middle): Cleo Wright E Gender: Female Date of : 1945 Age: 76 Procedure Date: 12/30/2021 Procedure Type: Transthoracic Echocardiogram Location: OP Height: 165.1 cm Weight: 70.31 kg BSA: 1.78 m2 Heart Rate: bpm BP: 123 / 70 mmHg Membership Sales Advisor: LILIANA Referring MD: Carlos Hernández MD Ethnographic Materials Conservator: Carlos Hernández MD Symptoms: I35.9 - Nonrheumatic aortic valve disorder, unspecified Study Quality: Adequate ECG Rhythm: Sinus Conclusions: - 1. Normal LV systolic function with impaired relaxation filling pattern 2. Mild aortic regurgitation and moderate aortic stenosis with mean gradient of 16 mm Hg which is on the lower side, however could represent paradoxical low-flow 3. Normal RV systolic pressure 4. [id number]-puhllcjl mitral regurgitation 5. No gross pericardial effusion Findings Left Ventricle Normal left ventricular size and systolic function. There is mildly increased left ventricular wall thickness. The visually estimated ejection fraction is between 60-65%. Spectral Doppler is indicative of an impaired relaxation filling pattern. E/E prime ratio is between 8 and 15 consistent with indeterminate filling pressures. There is mild septal asymmetric hypertrophy. Right Ventricle Normal right ventricular cavity size and systolic function. Atria The left atrium is mildly dilated. There is lipomatous hypertrophy of the interatrial septum. There is no evidence of interatrial shunt. The right atrium is likely dilated. Aortic Valve The aortic valve was not well visualized. There is mild calcification of the aortic valve. There is moderate aortic valve stenosis. The mean gradient is 16 mmHg. The aortic valve area is 1.20 cm2. There is mild aortic valve regurgitation. Mitral Valve There is mild anterior and posterior mitral leaflet thickening. There is mild to moderate mitral valve regurgitation. There is no mitral valve stenosis. Pulmonic Valve The pulmonic valve was not well visualized. Tricuspid Valve Likely normal tricuspid valve structure and function. There is mild tricuspid valve regurgitation. The right ventricular systolic pressure is normal. The right ventricular systolic pressure is 29 mmHg. Normal right atrial pressure. There is no evidence of pulmonary hypertension. Great Vessels All visible segments of the aorta are normal in size. The pulmonary artery was not well visualized. Venous The inferior vena cava is normal in size and collapses greater than 50% with inspiration. Pericardium/Pleural There is no evidence of pericardial effusion. Prior Study Comparison Changes noted compared to prior study dated: 12/27/2020. aortic stenosis is is marginally worse Measurements 2D Linear Measurements IVSd: 1.21 0.6-0.9/0.6-1.0 cm LVIDd: 3.96 3.9-5.3/4.2-5.9 cm LVIDd Index: 2.22 2.4-3.2/2.2-3.1 cm/m2 LVIDs: 2.76 2.0-3.6 cm LVPWd: 1.03 0.7-1.1 cm LA Diam: 3.40 2.7-3.8/3.0-4.0 cm LAIDs Index: 1.91 1.5-2.3 cm/m2 LV Mass: 183.28 67-162/88-224 g LV Mass Index: 102.97 43-95/49-115 g/m2 LVOT Diam: 2.00 3.0+(-)1.3 cm 2D Systolic Function EF 4C: 63.90 >55% EF 2C: 64.70 >55% EF BiP: 63.70 >55% Mitral Valve MV Pk E: 0.94 MV PK A: 1.08 MV Decel Time: 211.00 E/A: 0.90 E'Lateral: 6.96 E'Medial: 5.55 E/E' Med: 16.80 E/E' Lat: 13.40 PHT: 62.00 MVA PHT: 3.55 Decel [place]: 4.43 Aortic Valve AoV Pk Jony: 2.75 AoV Mn Jony: 1.84 AoV VTI: 0.67 AoV Pk Grad: 30.00 Aov Mn Grad: 16.00 YVAN Cont.VTI: 1.20 AI Pk Jony: 4.43 AI [place]: 2.93 LVOT LVOT Pk Jony: 1.03 LVOT Mn Jony: 0.74 LVOT VTI: 0.26 LVOT Pk Grad: 4.00 LVOT Mn Grad: 2.00 LVOT Diam: 2.00 LVOT Area: 3.14 Diastolic Function MV Pk E: 0.94 MV Pk A: 1.08 E/A: 0.90 E'Medial: 5.55 E/E' Med: 16.80 E' Laterial: 6.96 E/E' Lat: 13.40 Right Ventricle TAPSE (mm): 23.80 TVS' Jony: 12.00 Tricuspid Valve TR Pk Jony: 2.54 TR Pk Grad: 26.00 RA Press: 3.00 RVSP: 29.00 Great Vessels Aorta Sinus of Valsalva: 2.70 2.0-3.[address] [place]: 1.82 1.7-3.4 cm Ao Asc: 2.80 2.1-3.4 cm Updated in Other Vendor System with Status of Final Carlos Hernández MD electronically signed on 12/31/2021 10:54:27 AM with status of Final
== END ==
LOC: HO.CARD 12:49
PROVIDERS: Visit Provider Internal Medicine Cardiovascular Disease
DX: I35.9 Nonrheumatic aortic valve disorder, unspecified (principal)
CPT/HCPCS: 93306

== ENCOUNTER → 2022-01-08 12:37 | Outpatient (BNVA) | payer MEDICARE, SELFPAY | PROVIDERS: PCP Internal Medicine; Referring Provider Internal Medicine; Visit Provider Internal Medicine Cardiovascular Disease | DX: I35.9 Nonrheumatic aortic valve disorder, unspecified (principal); I47.1 Supraventricular tachycardia; R42 Dizziness and giddiness | CPT/HCPCS: 99212 ==

== ENCOUNTER 2022-03-16 11:05 | Outpatient (REF) | payer MEDICARE, SELFPAY ==
[2022-03-16 12:38] LABS: Erythrocyte Sedimentation Rate 12 MM/HR (0-20)
[2022-03-16 13:23] LABS: Rheumatoid Factor < 13.0 IU/mL (<15.0)
[2022-03-17 12:57] LABS: Cyclic Citrullinated Peptide <16 UNITS
[2022-03-18 07:59] LABS: Antibody to SS-A Antigen <1.0 NEG AI (<1.0 NEG); Antibody to SS-B Antigen <1.0 NEG AI (<1.0 NEG)
[2022-03-18 11:44] LABS: ANA Pattern 2 Nuclear, Homogeneous; ANA Titer 2 1:40 titer; Anti Nuclear Antibody Pattern Nuclear, Nucleolar; Anti Nuclear Antibody Screen POSITIVE (NEGATIVE)
== END 2022-03-16 11:06 | disposition home or self-care (01) ==
LOC: HO.LAB 11:05
PROVIDERS: PCP Internal Medicine; Visit Provider Internal Medicine
DX: F32.9 Major depressive disorder, single episode, unspecified (principal); G47.00 Insomnia, unspecified; M35.00 Sjogren syndrome, unspecified; R51.9 Headache, unspecified
CPT/HCPCS: 36415; 85652; 86038; 86039; 86200; 86235; 86431

== ENCOUNTER 2022-05-07 12:49 | Outpatient (REF) | payer MEDICARE, SELFPAY ==
--- NOTE | ~2022-05-07 | MM_ITS ---
EXAMINATION: MM SCREENING DIGITAL BREAST TOMOSYNTHESIS, BILATERAL CLINICAL INFORMATION: Screening. Asymptomatic. The lifetime risk of breast cancer based on the Tyrer-Cuzick Model is 2.2%. COMPARISON: Mammography: May 05, 2021 and studies dating back to March 01, 2015 TECHNIQUE: Digital breast tomosynthesis is performed in both the craniocaudal and mediolateral oblique views along with computer-aided detection (CAD). Synthesized 2D images are generated from the tomosynthesis. FINDINGS: The breasts are almost entirely fatty (ACR BI-RADS breast composition Category a). There are no significant masses, abnormal calcifications, or other abnormalities. MM/MM tomosynthesis screening BI IMPRESSION: No significant changes from prior exam. ASSESSMENT: BI-RADS 1: Negative RECOMMENDATION: Routine annual mammography screening. This patient's information was entered into a reminder system with a target due date for their next mammogram.
== END 2022-05-07 12:50 | disposition home or self-care (01) ==
LOC: HO.MAMMO 12:49
PROVIDERS: PCP Internal Medicine; Visit Provider Internal Medicine
DX: Z12.31 Encounter for screening mammogram for malignant neoplasm of breast (principal)
CPT/HCPCS: 77063; 77067

== ENCOUNTER 2022-06-17 10:10 | Outpatient (REF) | payer MEDICARE, SELFPAY ==
[2022-06-17 11:09] LABS: Alanine Aminotransferase 13 U/L (0-31); Alkaline Phosphatase 57 U/L (39-117); Anion Gap 12 (12-20); Aspartate Amino Transferase 18 U/L (5-31); Bilirubin Total 0.8 mg/dL (0.0-1.0); Blood Urea Nitrogen 19 mg/dL (9-16); Calcium 9.2 mg/dL (8.4-10.2); Carbon Dioxide 27 mmol/L (22-29); Chloride 108 mmol/L (96-108); Estimated Glomerular Filt Rate 53; Glucose Random 88 mg/dL (60-115); Potassium 4.5 mmol/L (3.3-5.1); Sodium 142 mmol/L (135-145); Total Protein 6.3 g/dL (6.5-8.0)
== END 2022-06-17 10:11 | disposition home or self-care (01) ==
LOC: HO.LAB 10:10
PROVIDERS: PCP Internal Medicine; Visit Provider Internal Medicine
DX: Z00.00 Encounter for general adult medical examination without abnormal findings (principal); E78.00 Pure hypercholesterolemia, unspecified; I10 Essential (primary) hypertension; J00 Acute nasopharyngitis [common cold]; K59.00 Constipation, unspecified
CPT/HCPCS: 36415; 80053

== ENCOUNTER 2022-07-15 09:13 | Outpatient (REF) | payer MEDICARE, SELFPAY ==
[2022-07-15 09:40] LABS: MANUAL DIFF FLAG NO
[2022-07-15 09:46] LABS: Basophils Absolute Auto 0.1 X10*3/uL (0.0-0.2); Basophils Percent Auto 2.1 % (0-2); Eosinophils Absolute Auto 0.7 X10*3/uL (0.0-0.4); Eosinophils Percent Auto 14.8 % (0-4); Hematocrit 36.7 % (37.0-47.0); Imm Gran Abs Auto 0.01 X10*3/uL (0.00-0.03); Imm Gran Pct Auto 0.2 % (0.0-0.4); Lymphocytes Absolute Auto 1.2 X10*3/uL (1.2-4.9); Lymphocytes Percent Auto 27.4 % (20-40); Mean Corpuscular HGB Conc 32.7 g/dl (31.0-35.0); Mean Corpuscular Hemoglobin 30.2 pg (27.0-33.0); Mean Corpuscular Volume 92.4 fL (80.0-98.0); Mean Platelet Volume 8.2 fL (9.4-12.3); Monocytes Absolute Auto 0.6 X10*3/uL (0.1-1.2); Monocytes Percent Auto 12.6 % (2-11); Neutrophils Absolute Auto 1.9 x10*3/uL (2.0-8.3); Neutrophils Percent Auto 42.9 % (45-73); Platelet Count 214 X10*3/uL (160-400); Red Blood Count 3.97 X10*6/uL (4.20-5.50); Red Cell Distribution Width 12.7 % (11.0-16.0); White Blood Count 4.4 X10*3/uL (4.8-10.8)
[2022-07-15 10:32] LABS: Alanine Aminotransferase 11 U/L (0-31); Alkaline Phosphatase 57 U/L (39-117); Anion Gap 11 (12-20); Aspartate Amino Transferase 16 U/L (5-31); Bilirubin Total 0.9 mg/dL (0.0-1.0); Blood Urea Nitrogen 14 mg/dL (9-16); Calcium 9.4 mg/dL (8.4-10.2); Carbon Dioxide 28 mmol/L (22-29); Chloride 110 mmol/L (96-108); Cholesterol 149 mg/dL; Estimated Glomerular Filt Rate 49; Glucose Random 89 mg/dL (60-115); HDL Cholesterol 54 mg/dL; LDL Cholesterol Calculated 80 mg/dl; Potassium 4.9 mmol/L (3.3-5.1); Sodium 144 mmol/L (135-145); Total Protein 6.6 g/dL (6.5-8.0); Triglycerides 79 mg/dL
[2022-07-15 10:51] LABS: Thyroid Stimulating Hormone 2.69 uIU/mL (0.32-4.0)
== END 2022-07-15 09:14 | disposition home or self-care (01) ==
LOC: HO.LAB 09:13
PROVIDERS: PCP Internal Medicine; Visit Provider Internal Medicine
DX: F32.5 Major depressive disorder, single episode, in full remission (principal); I10 Essential (primary) hypertension; I34.0 Nonrheumatic mitral (valve) insufficiency; J44.9 Chronic obstructive pulmonary disease, unspecified; R60.0 Localized edema; M81.8 Other osteoporosis without current pathological fracture
CPT/HCPCS: 36415; 80053; 80061; 82306; 84443; 85025

== ENCOUNTER 2022-09-09 10:08 | Outpatient (REF) | payer MEDICARE, SELFPAY ==
--- NOTE | ~2022-09-09 | XR_ITS ---
EXAMINATION: XR CHEST CLINICAL INFORMATION: COPD COMPARISON: Chest 07/17/2021 TECHNIQUE: 2 views of the chest were obtained. 1045. FINDINGS: No significant abnormality is noted involving the heart, lungs, mediastinum, bony thorax or soft tissues. XR/XR chest 2V IMPRESSION: No acute cardiopulmonary disease.
== END 2022-09-09 10:09 | disposition home or self-care (01) ==
LOC: HO.XRAY 10:08
PROVIDERS: PCP Internal Medicine; Visit Provider Internal Medicine
DX: J44.9 Chronic obstructive pulmonary disease, unspecified (principal)
CPT/HCPCS: 71046

== ENCOUNTER 2022-12-15 09:31 | Outpatient (REF) | payer MEDICARE, SELFPAY ==
[2022-12-15 09:59] LABS: MANUAL DIFF FLAG NO
[2022-12-15 10:42] LABS: Basophils Absolute Auto 0.1 X10*3/uL (0.0-0.2); Basophils Percent Auto 1.8 % (0-2); Eosinophils Absolute Auto 0.7 X10*3/uL (0.0-0.4); Eosinophils Percent Auto 14.8 % (0-4); Hematocrit 39.1 % (37.0-47.0); Hemoglobin 12.7 g/dl (12.0-16.0); Lymphocytes Absolute Auto 1.1 X10*3/uL (1.2-4.9); Lymphocytes Percent Auto 24.5 % (20-40); Mean Corpuscular HGB Conc 32.5 g/dl (31.0-35.0); Mean Corpuscular Hemoglobin 30.1 pg (27.0-33.0); Mean Corpuscular Volume 92.7 fL (80.0-98.0); Mean Platelet Volume 8.6 fL (9.4-12.3); Monocytes Absolute Auto 0.6 X10*3/uL (0.1-1.2); Monocytes Percent Auto 13.2 % (2-11); Neutrophils Percent Auto 45.7 % (45-73); Platelet Count 231 X10*3/uL (160-400); Red Blood Count 4.22 X10*6/uL (4.20-5.50); White Blood Count 4.4 X10*3/uL (4.8-10.8)
[2022-12-15 11:09] LABS: Alanine Aminotransferase 12 U/L (0-31); Albumin Level 4.2 g/dL (3.5-5.0); Alkaline Phosphatase 55 U/L (39-117); Anion Gap 13 (12-20); Aspartate Amino Transferase 20 U/L (5-31); Bilirubin Total 0.7 mg/dL (0.0-1.0); Blood Urea Nitrogen 16 mg/dL (9-16); Calcium 9.4 mg/dL (8.4-10.2); Carbon Dioxide 27 mmol/L (22-29); Chloride 107 mmol/L (96-108); Cholesterol 162 mg/dL (<200); Estimated Glomerular Filt Rate 52; Glucose Random 87 mg/dL (60-115); HDL Cholesterol 64 mg/dL (>40); LDL Cholesterol Calculated 80 mg/dL (<100); Potassium 4.9 mmol/L (3.3-5.1); Sodium 142 mmol/L (135-145); Total Protein 7.2 g/dL (6.5-8.0); Triglycerides 93 mg/dL (<150)
[2022-12-15 11:42] LABS: Folate 9.8 ng/mL (> or = 4.0); Vitamin B12 451 pg/mL (200-900)
== END 2022-12-15 09:32 | disposition home or self-care (01) ==
LOC: HO.LAB 09:31
PROVIDERS: PCP Internal Medicine; Visit Provider Internal Medicine
DX: E55.9 Vitamin D deficiency, unspecified (principal); F32.5 Major depressive disorder, single episode, in full remission; I10 Essential (primary) hypertension; I34.0 Nonrheumatic mitral (valve) insufficiency; J44.9 Chronic obstructive pulmonary disease, unspecified
CPT/HCPCS: 36415; 80053; 80061; 82607; 82746; 85025

== ENCOUNTER 2022-12-24 13:31 | Emergency (ER) | payer MEDICARE, SELFPAY ==
--- NOTE | ~2022-12-24 | XR_ITS ---
EXAMINATION: XR CHEST CLINICAL INFORMATION: COPD 09/09/2022 COMPARISON: None available. TECHNIQUE: 2 views of the chest were obtained. Mild left lower lobe infrahilar opacity may be consistent with a subtle area of atelectasis or infiltrate. This may be present on the lateral film as well. Otherwise exam is comparable. Some chronic markings at the left base laterally. No effusion. Cardiac silhouette is within normal limits. The hilar regions do not appear pathologically enlarged. XR/XR chest 2V IMPRESSION:: Findings suggest an area of atelectasis or infiltrate in the retrocardiac region left lower lobe. Attention to follow-up
[2022-12-24 13:35] VITALS: BP 139/58; PULSE 81; RESP 30; TEMP 36.4; O2SAT 96; BMI 26.6
--- NOTE | 2022-12-24 13:36 | ED.GENADULT ---
HPI - General Adult General Chief complaint: Dyspnea Stated complaint: diff breathing Related Data Home Medications Medication Instructions Recorded Confirmed cetirizine 10 mg tablet 10 mg PO DAILY 01/02/20 01/08/22 albuterol sulfate 90 mcg/actuation 2 puff inhalation QID PRN 08/18/20 01/08/22 aerosol inhaler Shortness Of Breath citalopram 20 mg tablet 10 mg PO DAILY 07/17/21 01/08/22 fluticasone fur. 200 mcg-umeclid 1 ea inhalation DAILY 01/08/22 01/08/22 62.5 mcg-vilant 25 mcg inhalat.powder (Trelegy Ellipta) rosuvastatin 20 mg tablet 20 mg PO DAILY 01/08/22 01/08/22 Previous Rx's Medication Instructions Recorded diltiazem HCl 120 mg capsule,24 120 mg PO QPM 90 days #90 caps 01/08/22 hr,extended release Allergies Allergy/AdvReac Type Severity Reaction Status Date / Time Sulfa (Sulfonamide Allergy Intermediate RASH Verified 07/17/21 13:54 Antibiotics) [SULFA(SULFONAMIDE ANTIBIOTICS)] levofloxacin [From LEVAQUIN] Allergy Unknown UNKNOWN Verified 07/17/21 13:54 azithromycin [From ZITHROMAX] AdvReac Intermediate DIARRHEA Verified 07/17/21 13:54 nebivolol [From BYSTOLIC] AdvReac Intermediate LEG EDEMA Verified 07/17/21 13:54 sertraline [SERTRALINE] AdvReac Intermediate NAUSEA Verified 07/17/21 13:54 [facility] Past Medical History Medical History Aortic valve disease COPD (chronic obstructive pulmonary disease) Elevated cholesterol Fracture of leg Gastritis GERD (gastroesophageal reflux disease) Hx of irritable bowel syndrome SVT (supraventricular tachycardia) Surgical History H/O colonoscopy History of esophagogastroduodenoscopy (EGD) Hx laparoscopic cholecystectomy Hx of cataract extraction Family History Family History Father No problems noted. Mother CVD (cardiovascular disease) Social History Social History Household Members: Unknown / Unable to assess Housing: Unknown / Unable to assess Do you presently have visiting nurse or other home services: No Unable to assess alcohol history related to: Refusing to respond Alcohol intake: former Patient Tobacco Use Status: Former Tobacco user Second Hand Smoke Exposure: No Substance Use Type: Unknown Advance Directives Date on File: 08/19/20 service: No Current occupational status: retired Course Course Course Narrative: Patient with history of COPD complains of onset of shortness of breath 2 hours ago getting worse, denies chest pain Patient very short of breath and given several puffs of inhaler in the askew pending bed in the ER EKG chest x-ray and labs ordered This is rapid medical exam in triage pending full evaluation by a provider in the ER for full history physical, evaluation of all results and dispo Discharge Plan Discharge Prescriptions: No Action albuterol sulfate 90 mcg/actuation HFA aerosol inhaler 2 puff inhalation QID PRN (Reason: Shortness Of Breath) citalopram 20 mg tablet 10 mg PO DAILY cetirizine 10 mg tablet 10 mg PO DAILY rosuvastatin 20 mg tablet 20 mg PO DAILY Trelegy Ellipta 200-62.5-25 mcg blister with device 1 ea inhalation DAILY diltiazem HCl 120 mg capsule,extended release 24 hr 120 mg PO QPM 90 Days Qty: 90 3RF
--- NOTE | 2022-12-24 13:37 | ECG_ITS ---
Test Reason : sob Blood Pressure : / mmHG Vent. Rate : 082 BPM Atrial Rate : 082 BPM P-R Int : 160 ms QRS Dur : 066 ms QT Int : 396 ms P-R-T Axes : 072 014 032 degrees QTc Int : 462 ms Normal sinus rhythm Normal ECG When compared with ECG of 17-JUL-2021 14:30, Premature ventricular complexes are no longer Present Referred By: David Gandhi Electronically Signed By:NITESH VAUGHN MD
--- NOTE | 2022-12-24 13:52 | ED_ITS ---
HPI - SOB/Dyspnea General Chief Complaint: Dyspnea Stated Complaint: diff breathing Time Seen by Provider: 12/24/22 13:50 Source: patient Mode of arrival: ambulatory History of Present Illness HPI Narrative: 77 year old female with PMH: Aortic valve disease, COPD, HLD, leg fracture, gastritis, GERD, SVT, [place], Cataracts presents to the ER with one hour of respiratory distress. She has a chronic cough that she states has been worsening since February. She denies fever she was given 8 puffs of albuterol in triage and per respiratory therapy is much improved. MD elicited complaint: shortness of breath and cough Related Data Home Medications Medication Instructions Recorded Confirmed cetirizine 10 mg tablet 10 mg PO DAILY 01/02/20 01/08/22 albuterol sulfate 90 mcg/actuation 2 puff inhalation QID PRN 08/18/20 01/08/22 aerosol inhaler Shortness Of Breath citalopram 20 mg tablet 10 mg PO DAILY 07/17/21 01/08/22 fluticasone fur. 200 mcg-umeclid 1 ea inhalation DAILY 01/08/22 01/08/22 62.5 mcg-vilant 25 mcg inhalat.powder (Trelegy Ellipta) rosuvastatin 20 mg tablet 20 mg PO DAILY 01/08/22 01/08/22 Previous Rx's Medication Instructions Recorded diltiazem HCl 120 mg capsule,24 120 mg PO QPM 90 days #90 caps 01/08/22 hr,extended release benzonatate 100 mg capsule 100 mg PO BID PRN cough #20 caps 12/24/22 prednisone 10 mg tablet 10 mg PO DIRECTED copd #52 tabs 12/24/22 Allergies Allergy/AdvReac Type Severity Reaction Status Date / Time Sulfa (Sulfonamide Allergy Intermediate RASH Verified 07/17/21 13:54 Antibiotics) [SULFA(SULFONAMIDE ANTIBIOTICS)] levofloxacin [From LEVAQUIN] Allergy Unknown UNKNOWN Verified 07/17/21 13:54 azithromycin [From ZITHROMAX] AdvReac Intermediate DIARRHEA Verified 07/17/21 13:54 nebivolol [From BYSTOLIC] AdvReac Intermediate LEG EDEMA Verified 07/17/21 13:54 sertraline [SERTRALINE] AdvReac Intermediate NAUSEA Verified 07/17/21 13:54 Review of Systems 2 Review of Systems: Review of systems: General: Patient denies any fever chills recent illness or falls Musculoskeletal: Denies back pain or body aches or other injuries HEENT: denies headache, runny nose, ear pain Respiratory: shortness of breath, cough Cardiovascular: no chest pain or palpitations : denies dysuria, frequency Abdomen: no nausea vomiting denies abdominal pain Extremities: no swelling, no pain Skin: no diaphoresis Yes all other systems are reviewed and are negative PMFSH Past Medical History Medical History Aortic valve disease COPD (chronic obstructive pulmonary disease) Elevated cholesterol Fracture of leg Gastritis GERD (gastroesophageal reflux disease) Hx of irritable bowel syndrome SVT (supraventricular tachycardia) Surgical History H/O colonoscopy History of esophagogastroduodenoscopy (EGD) Hx laparoscopic cholecystectomy Hx of cataract extraction Family History Family History Father No problems noted. Mother CVD (cardiovascular disease) Social History Social History Household Members: Unknown / Unable to assess Housing: Unknown / Unable to assess Do you presently have visiting nurse or other home services: No Unable to assess alcohol history related to: Refusing to respond Alcohol intake: former Patient Tobacco Use Status: Former Tobacco user Second Hand Smoke Exposure: No Substance Use Type: Unknown Advance Directives: No Advance Directives Date on File: 08/19/20 service: No Current occupational status: retired Physical Exam 2 Vital Signs: Vital Signs: Last Vital Signs Temp 97.5 F 12/24/22 13:35 Pulse 83 12/24/22 14:33 Resp 31 H 12/24/22 14:33 BP 139/58 L 12/24/22 13:35 Pulse Ox 100 12/24/22 14:33 O2 Del Method Room Air 12/24/22 14:33 BMI result Body Mass Index 26.6 General: Well-appearing well-nourished in no signs of distress HEENT: Normocephalic atraumatic Neck: No signs of JVD, no masses no tenderness or lymphadenopathy Cardiovascular: Regular rate and rhythm Respiratory: Diffuse wheezing bilaterally Abdomen: Soft nontender no masses Extremities: Normal pedal pulses no signs of edema Skin: Dry warm no rashes Back: No tenderness full ROM Course Reevaluation(s) Reevaluation #1: Patient evaluated multiple times patient did improve after breathing treatments I also updated after x-rays and labs her son was at the bedside they are happy with the plan to go home I will discharge home. Medications Administered Discontinued Medications Generic Name Dose Route Start Last Admin Trade Name Robeq PRN Reason Stop Dose Admin Albuterol Sulfate 12 puff 12/24/22 13:51 12/24/22 13:53 Albuterol Sulfate 90 Mcg 8 Gm Inhaler INHALE 12/24/22 13:52 12 puff ONCE ONE Administration Albuterol Sulfate 5 mg/ 0 mg 12/24/22 14:23 12/24/22 14:29 Albuterol/Ipratropium 3 ml INHALE 12/24/22 14:24 5 each ONCE ONE Administration Hydroxyzine HCl 10 mg 12/24/22 14:58 12/24/22 15:03 Hydroxyzine Hcl 10 Mg Tablet PO 12/24/22 14:59 10 mg ONCE ONE Administration Methylprednisolone Sodium Succinate 125 mg 12/24/22 13:51 12/24/22 14:27 Methylprednisolone Sod Succ 125 Mg/2 Ml Vial IVPUSH 12/24/22 13:52 125 mg ONCE ONE Administration Medical Decision Making Medical Decision Making [facility] Narrative: I will start the patient with treatment for COPD with breathing treatments and steroids I will also the patient might check blood work Differential Diagnosis Differential Diagnoses: The differential diagnosis associated with the presentation includes COVID flu COPD exacerbation pneumonia CHF is less likely patient does have COPD is never had any issues with CHF Admission/Observation Consideration of admission/observation: Escalation of care including admission/observation considered Consult Healthcare Provider Management of the patient was discussed with: Hospitalist Lab Data [facility] Lab Attestation statement: I reviewed the patient's lab results. 12/24/22 14:37 12/24/22 14:37 Labs: Lab Results 12/24/22 Range/Units 14:37 WBC 5.4 (4.8-10.8) X10*3/uL RBC 4.05 L (4.20-5.50) X10*6/uL Hgb 12.3 (12.0-16.0) g/dl Hct 37.4 (37.0-47.0) % MCV 92.3 (80.0-98.0) fL MCH 30.4 (27.0-33.0) pg MCHC 32.9 (31.0-35.0) g/dl RDW 13.0 (11.0-16.0) % Plt Count 212 (160-400) X10*3/uL MPV 8.4 L (9.4-12.3) fL Immature Gran % (Auto) 0.2 (0.0-0.4) % Neut % (Auto) 42.2 L (45-73) % Lymph % (Auto) 32.8 (20-40) % [place] % (Auto) 12.6 H (2-11) % Eos % (Auto) 10.9 H (0-4) % Baso % (Auto) 1.3 (0-2) % Lymph # (Auto) 1.8 (1.2-4.9) X10*3/uL [place] # (Auto) 0.7 (0.1-1.2) X10*3/uL Eos # (Auto) 0.6 H (0.0-0.4) X10*3/uL Baso # (Auto) 0.1 (0.0-0.2) X10*3/uL Abs Immat Gran (auto) 0.01 (0.00-0.03) X10*3/uL Absolute Neuts (auto) 2.3 (2.0-8.3) x10*3/uL Absolute Nucleated RBC 0.000 (0.0-0.012) X10*3/uL Nucleated RBC % (auto) 0.0 (0.0-0.2) /100WBC Sodium 145 (135-145) mmol/L Potassium 4.8 (3.3-5.1) mmol/L Chloride 107 (96-108) mmol/L Carbon Dioxide 27 (22-29) mmol/L Anion Gap 16 (12-20) BUN 22 H (9-16) mg/dL Creatinine 1.09 (0.5-1.4) mg/dL Estim Creat Clear Calc 44.5 Estimated GFR 49 Random Glucose 91 (60-115) mg/dL Calcium 10.6 H D (8.4-10.2) mg/dL Troponin I High Sens < 2.7 (<3.5-17.0) ng/L B-Natriuretic Peptide 162 H (<100) pg/mL Influenza Type A (PCR) NEGATIVE (Negative) Influenza Type B (PCR) NEGATIVE (Negative) RSV RNA Qual (PCR) NEGATIVE (Negative) SARS-CoV-2 RNA (RT-PCR) NEGATIVE (Negative) Independent Interpretation I performed an independent interpretation of an: EKG and Plain X-Ray Interpretation: Rate 82 normal sinus rhythm normal intervals no signs of ischemia no previous for comparison interpreted by me Radiology Impression Discussion of test interpretation with radiology: I have reviewed the radiologist's reading. External Record Review External record reviewed: Inpatient record and Outpatient record Critical Care Time Critical Care Time Critical Care Time: Yes Total Critical Care Time: 40 Attestation: Patient is here respiratory distress wheezing where 12.5 mg of albuterol with rheumatic fever and breathing was offered admission but decided to go home consultation with respiratory therapist. Discharge Plan Discharge Clinical Impression: Acute exacerbation of chronic obstructive pulmonary disease Patient Disposition: Home, Self-Care Additional Instructions: Your seen today for a COPD exacerbation. If you have worsening shortness of breath or any other concerns please do not hesitate to come back to emergency department Prescriptions: New prednisone 10 mg tablet 10 mg PO DIRECTED Qty: 52 0RF Rx Instructions: see taper instructions. Please take 6 tabs for 5 days then 5 tabs for 5 days then 4 tabs for 5 days then 3 tabs for 5 days then 2 tabs for 5 days then 1 tab for 5days benzonatate 100 mg capsule 100 mg PO BID PRN (Reason: cough) Qty: 20 0RF No Action albuterol sulfate 90 mcg/actuation HFA aerosol inhaler 2 puff inhalation QID PRN (Reason: Shortness Of Breath) citalopram 20 mg tablet 10 mg PO DAILY cetirizine 10 mg tablet 10 mg PO DAILY rosuvastatin 20 mg tablet 20 mg PO DAILY Trelegy Ellipta 200-62.5-25 mcg blister with device 1 ea inhalation DAILY diltiazem HCl 120 mg capsule,extended release 24 hr 120 mg PO QPM 90 Days Qty: 90 3RF Referrals: Wes Roy MD [Physician] - (Years seen today for shortness of breath and COPD. He had x-ray and labs and some breathing treatments with dramatic improvement. Please call follow with Dr. Philip of any other confer the concerns please return to emergency department)
[2022-12-24] MEDS: Albuterol Sulfate 90 MCG 8 GM INHALER 12 PUFF INHALE (13:53)
[2022-12-24 13:54] VITALS: PULSE 77; RESP 34; O2SAT 94
[2022-12-24] MEDS: methylPREDNISolone Sod Succ 125 MG/2 ML VIAL IVPUSH (14:27)
[2022-12-24] MEDS: Albuterol Sulfate 5 MG, Albuterol/Iprat 2.5/0.5MG 3 ML 3 ML INHALE (14:29)
[2022-12-24 14:33] VITALS: PULSE 83; PULSE 89; RESP 18; RESP 31; O2SAT 100; O2SAT 97
[2022-12-24 14:43] LABS: MANUAL DIFF FLAG NO
[2022-12-24 14:45] LABS: Basophils Absolute Auto 0.1 X10*3/uL (0.0-0.2); Basophils Percent Auto 1.3 % (0-2); Eosinophils Absolute Auto 0.6 X10*3/uL (0.0-0.4); Eosinophils Percent Auto 10.9 % (0-4); Hematocrit 37.4 % (37.0-47.0); Hemoglobin 12.3 g/dl (12.0-16.0); Imm Gran Abs Auto 0.01 X10*3/uL (0.00-0.03); Imm Gran Pct Auto 0.2 % (0.0-0.4); Lymphocytes Absolute Auto 1.8 X10*3/uL (1.2-4.9); Lymphocytes Percent Auto 32.8 % (20-40); Mean Corpuscular HGB Conc 32.9 g/dl (31.0-35.0); Mean Corpuscular Hemoglobin 30.4 pg (27.0-33.0); Mean Corpuscular Volume 92.3 fL (80.0-98.0); Mean Platelet Volume 8.4 fL (9.4-12.3); Monocytes Absolute Auto 0.7 X10*3/uL (0.1-1.2); Monocytes Percent Auto 12.6 % (2-11); Neutrophils Absolute Auto 2.3 x10*3/uL (2.0-8.3); Neutrophils Percent Auto 42.2 % (45-73); Platelet Count 212 X10*3/uL (160-400); Red Blood Count 4.05 X10*6/uL (4.20-5.50); White Blood Count 5.4 X10*3/uL (4.8-10.8)
[2022-12-24 14:55] LABS: Anion Gap 16 (12-20); Blood Urea Nitrogen 22 mg/dL (9-16); Calcium 10.6 mg/dL (8.4-10.2); Carbon Dioxide 27 mmol/L (22-29); Chloride 107 mmol/L (96-108); Creatinine Clr Calc Pharmacy 44.5; Estimated Glomerular Filt Rate 49; Glucose Random 91 mg/dL (60-115); Potassium 4.8 mmol/L (3.3-5.1); Sodium 145 mmol/L (135-145)
[2022-12-24 15:03] LABS: B Type Natriuretic Peptide 162 pg/mL (<100)
[2022-12-24] MEDS: hydrOXYzine HCL 10 MG TABLET PO (15:03)
--- NOTE | 2022-12-24 15:03 | PC.NURSE ---
Pt became anxious, d/t HR being elevated from breathing tx, aware, hydroxinzine given
[2022-12-24 15:04] LABS: Troponin-I High Sensitivity < 2.7 ng/L (<3.5-17.0)
[2022-12-24 15:21] LABS: Influenza A PCR NEGATIVE (Negative); Influenza B PCR NEGATIVE (Negative); Resp Syncy Virus RNA Qual PCR NEGATIVE (Negative); SARS COV2 PCR INHOUSE NEGATIVE (Negative)
--- NOTE | 2022-12-24 15:27 | PC.NURSE ---
Nursing at bedside, pt continues to have panic attack with rapid breathing, son called to see if they can come to bedside with patient for emotional support
[2022-12-24 16:00] VITALS: PULSE 108; RESP 20; O2SAT 92
== END 2022-12-24 16:51 | disposition home or self-care (01) ==
PROVIDERS: Physician Assistant Medical; Emergency Provider Student in an Organized Health Care Education/Training Program; PCP Internal Medicine
DX: J44.1 Chronic obstructive pulmonary disease with (acute) exacerbation (principal); R06.02 Shortness of breath; R05.9 Cough, unspecified; Z20.822 Contact with and (suspected) exposure to COVID-19; Z20.828 Contact with and (suspected) exposure to other viral communicable diseases; Z79.899 Other long term (current) drug therapy
CPT/HCPCS: 0241U; 36415; 71046; 80048; 83880; 84484; 85025; 93005; 94640; 96374; 99284; 99285; J2930

== ENCOUNTER → 2022-12-30 12:41 | Outpatient (REF) | payer MEDICARE, SELFPAY ==
--- NOTE | 2022-12-30 12:45 | CA_ITS ---
Transthoracic Echocardiogram Patient (Last, First, Middle): Cleo Wright E Gender: Female Date of : 1945 Age: 77 Procedure Date: 12/30/2022 Procedure Type: Transthoracic Echocardiogram Location: OP Height: 165.1 cm Weight: 71.67 kg BSA: 1.79 m2 Heart Rate: 69 bpm BP: 122 / 58 mmHg Expansion Joint Builder: ELLE Referring MD: Carlos Hernández MD Physician Representative: Carlos Hernández MD Symptoms: I35.9 - Nonrheumatic aortic valve disorder, unspecified Study Quality: Adequate ECG Rhythm: Sinus Conclusions: - 1. Normal LV ejection fraction of 60-65% with impaired relaxation filling pattern 2. Moderate aortic stenosis and mild aortic regurgitation 3. Normal RV systolic pressure 4. No gross pericardial effusion Findings Left Ventricle Normal left ventricular size, thickness, and systolic function. The visually estimated ejection fraction is between 60-65%. Spectral Doppler is indicative of an impaired relaxation filling pattern. E/E prime ratio is between 8 and 15 consistent with indeterminate filling pressures. Right Ventricle The right ventricle was not well visualized. Atria The left atrium is mildly dilated. Interatrial shunt cannot be excluded. The right atrium was not well visualized. Aortic Valve The aortic valve was not well visualized. There is mild calcification of the aortic valve. There is moderate aortic valve stenosis. The peak aortic gradient is 33 mmHg.The mean gradient is 18 mmHg. The aortic valve area is 1.46 cm2. There is mild aortic valve regurgitation. Mitral Valve The mitral valve was not well visualized. There is mild anterior mitral leaflet thickening. There is mild mitral annular calcification. There is mild mitral valve regurgitation. There is no mitral valve stenosis. Pulmonic Valve The pulmonic valve was not well visualized. Tricuspid Valve The tricuspid valve was not well visualized. There is trace tricuspid valve regurgitation. The right ventricular systolic pressure is normal. The right ventricular systolic pressure is 25 mmHg. Normal right atrial pressure. Great Vessels The pulmonary artery was not well visualized. There is no dilatation of the ascending aorta measuring 2.70 cm. Venous The inferior vena cava is normal in size and collapses greater than 50% with inspiration. Pericardium/Pleural There is no evidence of pericardial effusion. Prior Study Comparison No significant change compared to prior study dated: 12/30/2021. Measurements 2D Linear Measurements IVSd: 1.00 0.6-0.9/0.6-1.0 cm LVIDd: 4.75 3.9-5.3/4.2-5.9 cm LVIDd Index: 2.65 2.4-3.2/2.2-3.1 cm/m2 LVIDs: 3.07 2.0-3.6 cm LVPWd: 0.74 0.7-1.1 cm LA Diam: 4.30 2.7-3.8/3.0-4.0 cm LAIDs Index: 2.40 1.5-2.3 cm/m2 LV Mass: 173.10 67-162/88-224 g LV Mass Index: 96.70 43-95/49-115 g/m2 LVOT Diam: 2.10 3.0+(-)1.3 cm Mitral Valve MV Pk E: 1.09 MV PK A: 0.95 MV Decel Time: 217.00 E/A: 1.10 E'Lateral: 5.33 E'Medial: 4.90 E/E' Med: 22.20 E/E' Lat: 20.50 PHT: 64.00 MVA PHT: 3.44 Decel [place]: 5.01 Aortic Valve AoV Pk Jony: 2.89 AoV Mn Jony: 1.97 AoV VTI: 0.63 AoV Pk Grad: 33.00 Aov Mn Grad: 18.00 YVAN Cont.VTI: 1.46 AI Pk Jony: 4.23 AI [place]: 2.76 LVOT LVOT Pk Jony: 1.15 LVOT Mn Jony: 0.79 LVOT VTI: 0.27 LVOT Pk Grad: 5.00 LVOT Mn Grad: 3.00 LVOT Diam: 2.10 LVOT Area: 3.46 Diastolic Function MV Pk E: 1.09 MV Pk A: 0.95 E/A: 1.10 E'Medial: 4.90 E/E' Med: 22.20 E' Laterial: 5.33 E/E' Lat: 20.50 Right Ventricle TAPSE (mm): 21.20 TVS' Jony: 12.70 Tricuspid Valve TR Pk Jony: 2.32 TR Pk Grad: 22.00 RA Press: 3.00 RVSP: 25.00 Great Vessels Aorta Sinus of Valsalva: 2.70 2.0-3.5 cm Ao Asc: 2.70 2.1-3.4 cm Pulmonary Valve PV Pk Jony: 1.06 Peak PV Grad: 4.00 Updated in Other Vendor System with Status of Final Carlos Hernández MD electronically signed on 12/31/2022 4:38:17 PM with status of Final
== END ==
LOC: HO.CARD 12:41
PROVIDERS: PCP Internal Medicine; Visit Provider Internal Medicine Cardiovascular Disease
DX: I35.9 Nonrheumatic aortic valve disorder, unspecified (principal)
CPT/HCPCS: 93306

== ENCOUNTER → 2022-12-30 12:45 | Outpatient (BNV) | payer MEDICARE, SELFPAY | PROVIDERS: PCP Internal Medicine; Visit Provider Internal Medicine Cardiovascular Disease | DX: I34.0 Nonrheumatic mitral (valve) insufficiency (principal) | CPT/HCPCS: 93306 ==

== ENCOUNTER 2023-01-12 12:36 | Outpatient (AMB) | payer MEDICARE, SELFPAY ==
[2023-01-12 12:40] VITALS: BP 126/80; PULSE 78; BMI 27.5
--- NOTE | 2023-01-12 12:40 | A.OFFVIS_ITS ---
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: No Allergies Sulfa (Sulfonamide Antibiotics) [SULFA(SULFONAMIDE ANTIBIOTICS)] Allergy (Inter mediate, Verified 07/17/21 13:54) RASH levofloxacin [From LEVAQUIN] Allergy (Unknown, Verified 07/17/21 13:54) UNKNOWN azithromycin [From ZITHROMAX] Adverse Reaction (Intermediate, Verified 07/17/21 13:54) DIARRHEA nebivolol [From BYSTOLIC] Adverse Reaction (Intermediate, Verified 07/17/21 13:54) LEG EDEMA sertraline [SERTRALINE] Adverse Reaction (Intermediate, Verified 07/17/21 13:54) NAUSEA Medication List - Last Reconciled 01/12/23 by Carlos Hernández MD albuterol sulfate 90 mcg/actuation 2 puffs inhalation QID PRN citalopram 10 mg PO DAILY loratadine 10 mg PO DAILY metoprolol succinate ER 50 mg PO DAILY prednisone 10 mg PO DIRECTED rosuvastatin 20 mg PO DAILY umeclidinium-vilanterol 62.5-25 mcg/actuation (Anoro Ellipta) 1 ea inhalation DAILY HPI HPI Comments History of Present Illness Details Cleo comes for follow-up. Recent echocardiogram shows moderate aortic stenosis which is stable. She had a recent ED presentation for COPD exacerbation. Otherwise she has been doing well. Since then she is currently on on nebulizer. She has not had any rapid heart rate. She takes all her medications. Last LDL was in the 80s. Blood pressures been well controlled. She denies any exertional chest pain, lightheadedness, worsening shortness of breath. No heart failure symptoms. [facility] Medical History Gastritis GERD (gastroesophageal reflux disease) Elevated cholesterol Fracture of leg Hx of irritable bowel syndrome COPD (chronic obstructive pulmonary disease) Aortic valve disease SVT (supraventricular tachycardia) Surgical History History of esophagogastroduodenoscopy (EGD) Hx laparoscopic cholecystectomy Hx of cataract extraction H/O colonoscopy Family History Father No problems noted. Mother CVD (cardiovascular disease) Household Members: Unknown / Unable to assess Housing: Unknown / Unable to assess Do you presently have visiting nurse or other home services: No Unable to assess alcohol history related to: Refusing to respond Alcohol intake: former Patient Tobacco Use Status: Former Tobacco user Second Hand Smoke Exposure: No Substance Use Type: Unknown Advance Directives Date on File: 08/19/20 service: No Current occupational status: retired Review of Systems Const Denies chills, Denies fatigue, Denies fever(s), Denies frequent falls, Denies weakness, Denies weight gain and Denies weight loss ENT Denies dizziness Card Denies chest pain, Denies leg edema, Denies lightheadedness, Denies palpitations, Denies dyspnea, Denies dyspnea on exertion, Denies orthopnea and Denies other (loss of consciousness) Resp Denies cough, Denies dyspnea and Denies dyspnea on exertion GI Denies hematochezia and Denies change in stool character Musc Denies abnormal gait, Denies muscle weakness, Denies numbness, Denies radiating pain into limb and Denies tingling Neuro Denies abnormal gait, Denies dizziness, Denies frequent falls, Denies numbness, Denies tingling and Denies weakness Endo Denies fatigue and Denies palpitations Physical Exam Vital Signs: Last Vital Signs Pulse 78 01/12/23 12:40 BP 126/80 01/12/23 12:40 BMI result Body Mass Index 27.5 Const General: cooperative, healthy appearing, comfortable, no acute distress, alert and awake Nutritional Appearance: average body habitus Orientation/consciousness: patient oriented x3 Limitations: no limitations Eyes General: appearance normal, both eyes and all related structures Neck Neck: Yes full ROM, Yes trachea midline, Yes supple and Yes no JVD Chest Chest palpation & inspection: normal inspection of the chest Resp Effort & Inspection: normal respiratory effort Auscultation: clear to auscultation bilaterally, no crackles, no rales, no rhonchi, no wheezes and diminished lung sounds Cardio Jugular venous distension: no JVD Palpation: normal PMI Rate: regular rate Rhythm: regular rhythm Heart sounds: S1 normal heart sound present, S2 normal heart sound present and Murmur heart sound present systolic mid, decrescendo, crescendo and II/ Peripheral pulses: Peripheral pulses 2+ throughout GI Inspection: Yes normal to inspection Auscultation: normal bowel sounds Skin General skin exam: no rashes or lesions noted Neuro General: patient oriented x3 and no focal motor deficits Extrem General: Yes no clubbing, cyanosis or edema Psych Appearance: grossly normal Affect: Anxious affect present Assessment & Plan Assessment & Plan (1) Aortic valve disease: Code(s): I35.9 - Nonrheumatic aortic valve disorder, unspecified Plan: Aortic stenosis which is moderate and stable. Continue to monitor clinically. Cardinal symptoms of aortic stenosis were discussed. Follow-up echocardiogram in a year's time. Continue aggressive vascular risk factor modification. Blood pressure is optimized. LDL is optimized. Advise low-dose aspirin therapy for neuro protection (2) SVT (supraventricular tachycardia): Code(s): I47.1 - Supraventricular tachycardia Plan: Supraventricular tachycardia which has remained controlled on metoprolol therapy. No recurrent episodes. Continue metoprolol therapy. Vagal maneuvers were discussed. Avoidance of stimulants was discussed. Will follow up in the clinic in 1 year's time, sooner p.r.n.. Thank you for allowing me to partake in the care Coding Level of Care Code Est Pt Level 4 (57044) Diagnoses Aortic valve disease I35.9 SVT (supraventricular tachycardia) I47.1
== END 2023-01-12 13:09 | disposition home or self-care (01) ==
PROVIDERS: Visit Provider Internal Medicine Cardiovascular Disease
DX: I35.9 Nonrheumatic aortic valve disorder, unspecified (principal); I47.1 Supraventricular tachycardia
CPT/HCPCS: 99214

== ENCOUNTER → 2023-01-12 12:36 | Outpatient (BNVA) | payer MEDICARE, SELFPAY | PROVIDERS: Visit Provider Internal Medicine Cardiovascular Disease | DX: I35.9 Nonrheumatic aortic valve disorder, unspecified (principal); I47.10 Supraventricular tachycardia, unspecified | CPT/HCPCS: 99212 ==

== ENCOUNTER 2023-03-15 11:34 | Emergency (ER) | payer MEDICARE, SELFPAY ==
--- NOTE | 2023-03-15 11:52 | ED.CPR ---
HPI - CPR General Chief Complaint: Cardiac Arrest/CPR Stated Complaint: CARDIAC ARREST Time Seen by Provider: 03/15/23 11:46 Source: EMS Mode of arrival: EMS History of Present Illness HPI narrative: patient called EMS for chest pain upon arrival patient was in cardiac arrest. Prior to arrival patient recieved Igel, IO and 6 rounds of epi with no return of vitals. Patient arrives in cardiac arrest. MD complaint: found unresponsive and stopped breathing Onset (ago): minute(s) Timing confirmed by: other (EMS) Place: home Bystander CPR performed: No Related Data Home Medications Medication Instructions Recorded Confirmed albuterol sulfate 90 mcg/actuation 2 puff inhalation QID PRN 08/18/20 01/12/23 aerosol inhaler Shortness Of Breath rosuvastatin 20 mg tablet 20 mg PO DAILY 01/08/22 01/12/23 citalopram 10 mg tablet 10 mg PO DAILY 01/12/23 01/12/23 loratadine 10 mg tablet 10 mg PO DAILY 01/12/23 01/12/23 metoprolol succinate 50 mg 50 mg PO DAILY 01/12/23 01/12/23 tablet,extended release 24 hr umeclidinium 62.5 mcg-vilanterol 1 ea inhalation DAILY 01/12/23 01/12/23 25 mcg/actuation powdr for inhalation (Anoro Ellipta) Previous Rx's Medication Instructions Recorded prednisone 10 mg tablet 10 mg PO DIRECTED copd #52 tabs 12/24/22 Allergies Allergy/AdvReac Type Severity Reaction Status Date / Time Sulfa (Sulfonamide Allergy Intermediate RASH Verified 07/17/21 13:54 Antibiotics) [SULFA(SULFONAMIDE ANTIBIOTICS)] levofloxacin [From LEVAQUIN] Allergy Unknown UNKNOWN Verified 07/17/21 13:54 azithromycin [From ZITHROMAX] AdvReac Intermediate DIARRHEA Verified 07/17/21 13:54 nebivolol [From BYSTOLIC] AdvReac Intermediate LEG EDEMA Verified 07/17/21 13:54 sertraline [SERTRALINE] AdvReac Intermediate NAUSEA Verified 07/17/21 13:54 Review of Systems Review of Systems: Yes Unobtainable due to mental status PMFSH Past Medical History Onset Date is defined in the Problem List Problems that require an onset date and time if occurred within 24 hrs of arrival to the ED Aortic Dissection and Rupture; Neurologic impairment; Cardiopulmonary Arrest; Endotracheal Intubation; Insertion or Replacement of Mechanical Circulatory Assist Device Medical History Gastritis GERD (gastroesophageal reflux disease) Elevated cholesterol Fracture of leg Hx of irritable bowel syndrome COPD (chronic obstructive pulmonary disease) Aortic valve disease SVT (supraventricular tachycardia) Surgical History History of esophagogastroduodenoscopy (EGD) Hx laparoscopic cholecystectomy Hx of cataract extraction H/O colonoscopy Family History Family History Father No problems noted. Mother CVD (cardiovascular disease) Social History Social History Household Members: Unknown / Unable to assess Housing: Unknown / Unable to assess Do you presently have visiting nurse or other home services: No Unable to assess alcohol history related to: Refusing to respond Alcohol intake: former Patient Tobacco Use Status: Former Tobacco user Second Hand Smoke Exposure: No Substance Use Type: Unknown Advance Directives: No Advance Directives Information Provided: Yes Advance Directives Date on File: 08/19/20 service: No Current occupational status: retired Physical Exam Const: Other: Arrives in cardiac arrest on the autumn device HEENT: Head: Yes normal to inspection Ears: external ears normal General nose exam: Normal external nose present Mouth: Normal oral and palatal mucosa present and oropharynx normal Eyes: Other: fixed and dilated Neck: Other: supple Neck: Yes normal visual inspection Chest: Chest palpation & inspection: normal inspection of the chest Resp: Other: good air movement with bagging Cardio: Other: no heart sounds GI: Inspection: Yes normal to inspection Palpation (GI): Soft to palpation Skin: Other: severe pallor Neuro: Other: no movement Extrem: General: Yes normal to inspection Psych: Appearance: grossly normal Course Reevaluation(s) Reevaluation #1: patient was intubated, rounds of epi, bedside US showed no cardiac movement, code was called at 11:46am Time: 13:26 Reevaluation #2: I spent 40 minutes of critical care, with interventions, assessments, speaking to patient, consultants, and family. Time: 13:28 Medical Decision Making Differential Diagnosis Differential Diagnoses: The differential diagnosis associated with the presentation includes (ME, PE, aortic dissection, cerebral bleed, respiratory failure all considered) Admission/Observation Consideration of admission/observation: Escalation of care including admission/observation considered (upon arrival admission was considered) Lab Data Labs: Lab Results 03/15/23 Range/Units 11:35 POC Glucose 77 (60-115) mg/dL Independent Historian Clinical information obtained from an independent historian. History obtained from or confirmed by: EMS and Other (son) External Record Review External record reviewed: Outpatient record Chronic Conditions Patient?s care impacted by: Other (COPD) Discharge Plan Discharge Clinical Impression: Cardiac arrest Patient Disposition: on Arrival Prescriptions: No Action albuterol sulfate 90 mcg/actuation HFA aerosol inhaler 2 puff inhalation QID PRN (Reason: Shortness Of Breath) prednisone 10 mg tablet 10 mg PO DIRECTED Qty: 52 0RF Rx Instructions: see taper instructions. Please take 6 tabs for 5 days then 5 tabs for 5 days then 4 tabs for 5 days then 3 tabs for 5 days then 2 tabs for 5 days then 1 tab for 5days rosuvastatin 20 mg tablet 20 mg PO DAILY metoprolol succinate 50 mg tablet extended release 24 hr 50 mg PO DAILY loratadine 10 mg tablet 10 mg PO DAILY citalopram 10 mg tablet 10 mg PO DAILY Anoro Ellipta 62.5-25 mcg/actuation blister with device 1 ea inhalation DAILY Discharge Date/Time: 03/15/23 14:28 Date/Time: 03/15/23 23:59
--- NOTE | 2023-03-15 12:37 | PC.NURSE ---
[facility]: [phone] was notified at 1223. Spoke with Lindsay. Case # [id number]. Pt is possible tissue donor. [facility] [place].
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
[2023-03-15 14:06] LABS: Glucose, Whole Blood 77 mg/dL (60-115)
== END 2023-03-15 14:28 | disposition expired ==
PROVIDERS: Emergency Provider Emergency Medicine
DX: I46.9 Cardiac arrest, cause unspecified (principal); I35.9 Nonrheumatic aortic valve disorder, unspecified; I47.10 Supraventricular tachycardia, unspecified; K21.9 Gastro-esophageal reflux disease without esophagitis; E78.00 Pure hypercholesterolemia, unspecified; J44.9 Chronic obstructive pulmonary disease, unspecified; Z79.02 Long term (current) use of antithrombotics/antiplatelets; Z79.899 Other long term (current) drug therapy; Z87.891 Personal history of nicotine dependence
CPT/HCPCS: 82947; 96374; 99282; 99285; J0171